=== PATIENT | female | born 1975 | race Caucasian/White ===

== ENCOUNTER 2018-06-25 08:48 | Emergency (ER) | payer SELFPAY ==
[~2018-06-25] VITALS: Ht 160 cm; Wt 59.0 kg
--- OUTSIDE RECORDS SUMMARY | 2018-06-25 08:54 | XMS REPORT ---
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 343441934 Problem Macrocytosis without anemia D75.89 Active 850914665 Problem Chronic kidney disease, stage III (moderate) N18.3 Active 167596650 Problem Controlled substance agreement signed Z79.899 Active 947125981 Problem Vitamin D deficiency E55.9 Active 92354897 Problem Neuropathy G62.9 Active 237946882 ALLERGIES Substance Reaction Event Type Date Status Zoloft manic Drug Allergy Dec, Active Vicodin nausea Drug Allergy Dec, Active ENCOUNTERS Encounter Location Date Diagnosis [facility] [address] [place] [address] Dec, Asymptomatic microscopic hematuria R31.21 ; Acquired hypothyroidism E03.9 ; Vitamin D deficiency E55.9 ; Macrocytosis without anemia D75.89 ; Chronic kidney disease, stage III (moderate) N18.3 and 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9 and Hypercholesteremia E78.00 [place] [address] [address] Aug, Anxiety F41.9 [place] [address] [address] June, Encounter for well woman exam with routine gynecological exam Z01.419 ; Screening mammogram, encounter for Z12.31 and Anxiety F41.9 [place] [address] [address] Apr, Anxiety F41.9 [place] [address] [address] Apr, [place] [address] [address] Apr, Acquired hypothyroidism E03.9 [place] [address] [address] Apr, Acquired hypothyroidism E03.9 ; Anxiety F41.9 ; Hypercholesteremia E78.00 and Kidney disease, chronic, stage III (GFR 30-59 ml/min) N18.3 [place] [address] [address] Mar, Controlled substance agreement signed Z79.899 [place] [address] [address] Feb, Chronic kidney disease, stage III (moderate) N18.3 [facility] [address], [place] [address] Feb, Acquired hypothyroidism E03.9 [place] [address] [place] [address] Feb, Rash of unknown cause R21 and Anxiety F41.9 [place] [address] [place] [id number] [place] [address] Jan, Rash of unknown cause R21 [place] [address] [place] [address] [id number] [place] [address] Dec, Rash of unknown cause R21 and Anxiety F41.9 [place] [address] [id number] [place] [address] Aug, Scabies B86 [place] [address] [id number] [place] [address] June, [facility] [id number] [place] [id number] Sep, Dental examination V72.2 IMMUNIZATIONS No Known Immunizations SOCIAL HISTORY Never Assessed REASON FOR VISIT New provider visit- TANISHA Contreras, Needs repeat UA from [employer], discuss meds a nd needs levothyroxine refilled. TANISHA Contreras PLAN OF CARE Activity Details Follow Up 3 months or as indicated by lab Reason: Pending Test UA LONG DIP (IN HOUSE) Future/Pending Procedure ROUTINE VENIPUNCTURE VITAL SIGNS Height 63 in 2018-01-06 Weight 139.8 lbs 2018-01-06 Temperature 97.9 degrees Fahrenheit 2018-01-06 Heart Rate 73 bpm 2018-01-06 Respiratory Rate 18 2018-01-06 BMI 24.76 kg/m2 2018-01-06 Blood pressure systolic 128 mmHg 2018-01-06 Blood pressure diastolic 70 mmHg 2018-01-06 MEDICATIONS Medication Instructions Dosage Frequency Start Date End Date Duration Status Escitalopram Oxalate 20 mg Orally Once a day 1 tablet 24h Apr, Active Vitamin D (Ergocalciferol) 83618 UNIT Orally once weekly 1 capsule Oct, Active Gabapentin 300 MG Orally Once a day 2 capsule at hs 24h 17 Oct, 2017 Active Levothyroxine Sodium 100 MCG Orally Once a day 1 capsule 24h Active Betamethasone Dipropionate 0.05 % Externally Once a day 1 application to affected area 24h Dec, 10 days Active RESULTS No Results PROCEDURES Procedure Date Ordered Result Body Site VENIPUNCT, ROUTINE* Jan 06, 2018 URINALYSIS, AUTO, W/O SCOPE Jan 06, 2018 URINALYSIS, AUTO W/SCOPE Jan 06, 2018 ASSAY THYROID STIM HORMONE Jan 06, 2018 COMPLETE CBC W/AUTO DIFF WBC Jan 06, 2018 ASSAY OF VITAMIN D Jan 06, 2018 COMPREHEN METABOLIC PANEL Jan 06, 2018 BLOOD FOLIC ACID SERUM Jan 06, 2018 PROTEIN E-PHORESIS/URINE/CSF Jan 06, 2018 ASSAY OF PROTEIN, URINE Jan 06, 2018 INSTRUCTIONS MEDICATIONS ADMINISTERED No Known Medications MEDICAL (GENERAL) HISTORY Type Description Date Medical History Hypothyroid Medical History Anxiety Medical History Neuropathy-DX by Sabi Sloan 10/22/17 Medical History kidney failure Surgical History Tubal Ligation Surgical History Gallbladder Removal Surgical History oral surgery Hospitalization History childbirth
--- OUTSIDE RECORDS SUMMARY | 2018-06-25 08:55 | XMS REPORT ---
Author Author ELLIE GARNICA Organization [facility] Address [address] [place] [address] Care Team Providers Care Manager Transition Name Role Phone ELLIE GARNICA Unavailable PROBLEMS Type Condition ICD9-CM Code ZUQ00-CI Code Onset Dates Condition Status SNOMED Code Problem Hypercholesteremia E78.00 Active 20075078 Problem Acquired hypothyroidism E03.9 Active 966532615 Problem Kidney disease, chronic, stage III (GFR 30-59 ml/min) N18.3 Active 339703536 Problem Vitamin D deficiency E55.9 Active 72833282 Problem Neuropathy G62.9 Active 929714416 Problem High risk medication use Z79.899 Active 949831483012539 Problem Anxiety F41.9 Active 01656321 Problem Chronic kidney disease, stage III (moderate) N18.3 Active 389313966 Problem Controlled substance agreement signed Z79.899 Active 605247344 ALLERGIES Substance Reaction Event Type Date Status Zoloft manic Drug Allergy Oct, Active Vicodin nausea Drug Allergy Oct, Active ENCOUNTERS Encounter Location Date Diagnosis [facility] [id number] [place] [address] Oct, Vitamin D deficiency E55.9 and Acquired hypothyroidism E03.9 [facility] [id number] [place] [address] Oct, Acquired hypothyroidism E03.9 ; Neuropathy G62.9 and Hypercholesteremia E78.00 [facility] [id number] [place] [address] Aug, Anxiety F41.9 [facility] [id number] [place] [address] June, Encounter for well woman exam with routine gynecological exam Z01.419 ; Screening mammogram, encounter for Z12.31 and Anxiety F41.9 [facility] [id number] [place] [address] Apr, Anxiety F41.9 [facility] [address] [address] Apr, [facility] [address] [address] Apr, Acquired hypothyroidism E03.9 [facility] [address] [address] Apr, Acquired hypothyroidism E03.9 ; Anxiety F41.9 ; Hypercholesteremia E78.00 and Kidney disease, chronic, stage III (GFR 30-59 ml/min) N18.3 [place] [address] [address] Mar, Controlled substance agreement signed Z79.899 [place] [address] [address] Feb, Chronic kidney disease, stage III (moderate) N18.3 [place] [address] [address] Feb, Acquired hypothyroidism E03.9 [place] [address] [address] Feb, Rash of unknown cause R21 and Anxiety F41.9 [place] [address] [address] Jan, Rash of unknown cause R21 [place] [address] [address] Dec, Rash of unknown cause R21 and Anxiety F41.9 [place] [address] [address] Aug, Scabies B86 [place] [address] [address] June, [facility] [id number] [place] [phone] Sep, Dental examination V72.2 IMMUNIZATIONS No Known Immunizations SOCIAL HISTORY Never Assessed REASON FOR VISIT Hospital f/u. Pt went to [facility] 10/22/17 for burning sensation in her l egs, they dx with neuropathic pain. Pt has a rx for Neurontin that she has not f illed because she wants to discuss with Ellie [facility]we[facility] PLAN OF CARE Activity Details Follow Up 3 Months, prn Reason:Thyroid/ w/[place] Pending Test VITAMIN B1 (THIAMINE) VITAL SIGNS Height 63 in 2017-10-25 Weight 137.1 lbs 2017-10-25 Temperature 98.6 degrees Fahrenheit 2017-10-25 Heart Rate 64 bpm 2017-10-25 Respiratory Rate 18 2017-10-25 BMI 24.28 kg/m2 2017-10-25 Blood pressure systolic 115 mmHg 2017-10-25 Blood pressure diastolic 64 mmHg 2017-10-25 MEDICATIONS Medication Instructions Dosage Frequency Start Date End Date Duration Status Gabapentin 300 MG Orally Once a day 1 capsule at hs - may increase to twice a day if needed 24h Oct, 90 days Active Escitalopram Oxalate 10 mg Orally Once a day 1 tablet 24h Apr, 30 day(s) Active Levothyroxine Sodium 75 mcg Orally Once a day 1 tablet on an empty stomach in the morning 24h 30 days Active RESULTS No Results PROCEDURES Procedure Date Ordered Result Body Site ASSAY THYROID STIM HORMONE Oct 25, 2017 COMPREHEN METABOLIC PANEL Oct 25, 2017 ASSAY OF VITAMIN D Oct 25, 2017 ASSAY OF VITAMIN B-1 Oct 25, 2017 VENIPUNCT, ROUTINE* Oct 25, 2017 LIPID PANEL Oct 25, 2017 COMPLETE CBC W/AUTO DIFF WBC Oct 25, 2017 VITAMIN B-12 Oct 25, 2017 RBC SED RATE, AUTOMATED Oct 25, 2017 INSTRUCTIONS MEDICATIONS ADMINISTERED No Known Medications MEDICAL (GENERAL) HISTORY Type Description Date Medical History Hypothyroid Medical History Anxiety Medical History Neuropathy-DX by Patria Sloan 10/22/17 Surgical History Tubal Ligation Surgical History Gallbladder Removal
--- OUTSIDE RECORDS SUMMARY | 2018-06-25 08:55 | XMS REPORT ---
Author Author ELMIRA MARTIN [facility] Address [address] [place] [address] Care Team Providers Care Right Of Way Clearer Name Role Phone ELMIRA MARTIN Unavailable PROBLEMS Type Condition ICD9-CM Code NTH93-WC Code Onset Dates Condition Status SNOMED Code Problem Hypercholesteremia E78.00 Active 60941242 Problem Acquired hypothyroidism E03.9 Active 718711460 Problem Kidney disease, chronic, stage III (GFR 30-59 ml/min) N18.3 Active 185912610 Problem Vitamin D deficiency E55.9 Active 15090897 Problem Neuropathy G62.9 Active 794224637 Problem High risk medication use Z79.899 Active 192264407927340 Problem Anxiety F41.9 Active 31989741 Problem Chronic kidney disease, stage III (moderate) N18.3 Active 871120161 Problem Controlled substance agreement signed Z79.899 Active 302078643 ALLERGIES No Information ENCOUNTERS Encounter Location Date Diagnosis [facility] [id number] [place] [address] Dec, [facility] [id number] [place] [address] Dec, [facility] [id number] [place] [address] Dec, [facility] [id number] [place] [address] Nov, Chronic kidney disease, stage III (moderate) N18.3 [facility] [id number] [place] [address] Oct, Vitamin D deficiency E55.9 and Acquired hypothyroidism E03.9 [facility] [address] [address] Oct, Acquired hypothyroidism E03.9 ; Neuropathy G62.9 and Hypercholesteremia E78.00 [place] [address] [address] Aug, Anxiety F41.9 [place] [address] [address] June, Encounter for well woman exam with routine gynecological exam Z01.419 ; Screening mammogram, encounter for Z12.31 and Anxiety F41.9 [place] [address] [address] Apr, Anxiety F41.9 [place] [address] [address] Apr, [place] [address] [address] Apr, Acquired hypothyroidism E03.9 [place] [address] [address] Apr, Acquired hypothyroidism E03.9 ; Anxiety F41.9 ; Hypercholesteremia E78.00 and Kidney disease, chronic, stage III (GFR 30-59 ml/min) N18.3 [place] [address] [address] Mar, Controlled substance agreement signed Z79.899 [place] [address] [address] Feb, Chronic kidney disease, stage III (moderate) N18.3 [place] [id number] [place] [address] Feb, Acquired hypothyroidism E03.9 [place] [address] [address] Feb, Rash of unknown cause R21 and Anxiety F41.9 [place] [address] [address] Jan, Rash of unknown cause R21 [facility] [id number] [address] Dec, Rash of unknown cause R21 and Anxiety F41.9 [facility] [id number] [address] Aug, Scabies B86 [facility] [address] [address] June, [facility] [place] [facility] [address] [facility] [id number] [id number] Sep, Dental examination V72.2 IMMUNIZATIONS No Known Immunizations SOCIAL HISTORY Never Assessed REASON FOR VISIT [facility] PLAN OF CARE VITAL SIGNS MEDICATIONS Unknown Medications RESULTS No Results PROCEDURES No Known procedures INSTRUCTIONS MEDICATIONS ADMINISTERED No Known Medications MEDICAL (GENERAL) HISTORY Type Description Date Medical History Hypothyroid Medical History Anxiety Medical History Neuropathy-DX by Sabi Sloan 10/22/17 Surgical History Tubal Ligation Surgical History Gallbladder Removal
--- OUTSIDE RECORDS SUMMARY | 2018-06-25 08:55 | XMS REPORT ---
Author Author ELLIE GARNICA Organization [facility] Address [address] [place] [address] Care Team Providers Care Filleter Name Role Phone GARNICAELLIE Wayne Unavailable PROBLEMS Type Condition ICD9-CM Code JLW84-NB Code Onset Dates Condition Status SNOMED Code Problem Hypercholesteremia E78.00 Active 29175298 Problem Chronic kidney disease, stage III (moderate) N18.3 Active 181783417 Problem Controlled substance agreement signed Z79.899 Active 623457804 Problem Acquired hypothyroidism E03.9 Active 124721350 Problem Kidney disease, chronic, stage III (GFR 30-59 ml/min) N18.3 Active 173390261 Problem High risk medication use Z79.899 Active 739447676898979 Problem Anxiety F41.9 Active 70029429 ALLERGIES No Information ENCOUNTERS Encounter Location Date Diagnosis [facility] [id number] [place] [address] June, Encounter for well woman exam with routine gynecological exam Z01.419 ; Screening mammogram, encounter for Z12.31 and Anxiety F41.9 [place] [address] [place] [address] Apr, Anxiety F41.9 [place] [id number] [place] [address] Apr, [place] [address] [place] [address] Apr, Acquired hypothyroidism E03.9 [facility] [id number] [place] [address] Apr, Acquired hypothyroidism E03.9 ; Anxiety F41.9 ; Hypercholesteremia E78.00 and Kidney disease, chronic, stage III (GFR 30-59 ml/min) N18.3 [place] [address] [place] [address] Mar, Controlled substance agreement signed Z79.899 [place] [id number] [place] [address] Feb, Chronic kidney disease, stage III (moderate) N18.3 [place] [address] [address] Feb, Acquired hypothyroidism E03.9 [place] [id number] [place] [address] Feb, Rash of unknown cause R21 and Anxiety F41.9 [place] [id number] [place] [address] Jan, Rash of unknown cause R21 [place] [address] [address] Dec, Rash of unknown cause R21 and Anxiety F41.9 [place] [id number] [place] [address] Aug, Scabies B86 [place] [id number] [place] [address] June, [facility] [address] [id number] Sep, Dental examination V72.2 IMMUNIZATIONS No Known Immunizations SOCIAL HISTORY Never Assessed REASON FOR VISIT Medication refill request PLAN OF CARE VITAL SIGNS MEDICATIONS Medication Instructions Dosage Frequency Start Date End Date Duration Status Levothyroxine Sodium 75 mcg Orally Once a day 1 tablet on an empty stomach in the morning 24h 30 days Active RESULTS No Results PROCEDURES No Known procedures INSTRUCTIONS MEDICATIONS ADMINISTERED No Known Medications MEDICAL (GENERAL) HISTORY Type Description Date Medical History Hypothyroid Medical History Anxiety Surgical History Tubal Ligation Surgical History Gallbladder Removal
--- OUTSIDE RECORDS SUMMARY | 2018-06-25 08:55 | XMS REPORT ---
Author Author JULIA PENA [facility] Address [address] [place] [address] Care Team Providers Care Drapery Counselor Name Role Phone KING JULIA Unavailable PROBLEMS Type Condition ICD9-CM Code NOO42-EB Code Onset Dates Condition Status SNOMED Code Problem Hypercholesteremia E78.00 Active 60477897 Problem Chronic kidney disease, stage III (moderate) N18.3 Active 447089106 Problem Controlled substance agreement signed Z79.899 Active 059560637 Problem Acquired hypothyroidism E03.9 Active 778519642 Problem Kidney disease, chronic, stage III (GFR 30-59 ml/min) N18.3 Active 141691811 Problem High risk medication use Z79.899 Active 060282365713056 Problem Anxiety F41.9 Active 93943262 ALLERGIES Substance Reaction Event Type Date Status Zoloft manic Drug Allergy June, Active Vicodin nausea Drug Allergy June, Active ENCOUNTERS Encounter Location Date Diagnosis [place] [address] [place] [id number] [place] [address] Sep, [place] [id number] [place] [address] Aug, Anxiety F41.9 [facility] [id number] [place] [address] June, Encounter for well woman exam with routine gynecological exam Z01.419 ; Screening mammogram, encounter for Z12.31 and Anxiety F41.9 [facility] [id number] [place] [address] Apr, Anxiety F41.9 [facility] [id number] [place] [address] Apr, [facility] [id number] [place] [address] Apr, Acquired hypothyroidism E03.9 [place] [id number] [place] [address] Apr, Acquired hypothyroidism E03.9 ; Anxiety F41.9 ; Hypercholesteremia E78.00 and Kidney disease, chronic, stage III (GFR 30-59 ml/min) N18.3 [place] [address] [address] Mar, Controlled substance agreement signed Z79.899 [place] [address] [address] Feb, Chronic kidney disease, stage III (moderate) N18.3 [place] [address] [address] Feb, Acquired hypothyroidism E03.9 [place] [id number] [place] [address] Feb, Rash of unknown cause R21 and Anxiety F41.9 [place] [id number] [place] [address] Jan, Rash of unknown cause R21 [place] [address] [address] Dec, Rash of unknown cause R21 and Anxiety F41.9 [place] [address] [place] [id number] [place] [address] Aug, Scabies B86 [place] [address] [place] [id number] [place] [address] June, [facility] [address] [id number] Sep, Dental examination V72.2 IMMUNIZATIONS No Known Immunizations SOCIAL HISTORY Never Assessed REASON FOR VISIT Annual physical (female)-DELFIN Duque PLAN OF CARE Activity Details Follow Up 4 Weeks Reason:with pcp-anxiety Pending Test Mammogram, Bilateral Screening VITAL SIGNS Height 63 in 2017-06-25 Weight 133.6 lbs 2017-06-25 Temperature 98 degrees Fahrenheit 2017-06-25 Heart Rate 70 bpm 2017-06-25 Respiratory Rate 18 2017-06-25 BMI 23.66 kg/m2 2017-06-25 Blood pressure systolic 100 mmHg 2017-06-25 Blood pressure diastolic 60 mmHg 2017-06-25 MEDICATIONS Medication Instructions Dosage Frequency Start Date End Date Duration Status Levothyroxine Sodium 75 mcg Orally Once a day 1 tablet on an empty stomach in the morning 24h 30 days Active Escitalopram Oxalate 10 mg Orally Once a day 1 tablet 24h Apr, 30 day(s) Active RESULTS No Results PROCEDURES Procedure Date Ordered Result Body Site SPECIMEN HANDLING June 25, 2017 INSTRUCTIONS MEDICATIONS ADMINISTERED No Known Medications MEDICAL (GENERAL) HISTORY Type Description Date Medical History Hypothyroid Medical History Anxiety Surgical History Tubal Ligation Surgical History Gallbladder Removal
--- OUTSIDE RECORDS SUMMARY | 2018-06-25 08:55 | XMS REPORT ---
Author Author LUIS KAMINSKI [facility] Address [address] [place] [address] Care Team Providers Care Formulation Scientist Name Role Phone LUIS KAMINSKI Unavailable PROBLEMS Type Condition ICD9-CM Code TWO06-PA Code Onset Dates Condition Status SNOMED Code Problem Hypercholesteremia E78.00 Active 60969215 Problem Acquired hypothyroidism E03.9 Active 246626909 Problem Kidney disease, chronic, stage III (GFR 30-59 ml/min) N18.3 Active 068552983 Problem Vitamin D deficiency E55.9 Active 25749449 Problem Neuropathy G62.9 Active 375384990 Problem High risk medication use Z79.899 Active [id number] Problem Anxiety F41.9 Active 79956035 Problem Chronic kidney disease, stage III (moderate) N18.3 Active 995671828 Problem Controlled substance agreement signed Z79.899 Active 978530547 ALLERGIES No Information ENCOUNTERS Encounter Location Date Diagnosis [facility] [id number] [place] [address] Dec, [facility] [id number] [place] [address] Dec, [facility] [id number] [place] [address] Nov, Chronic kidney disease, stage III (moderate) N18.3 [facility] [id number] [place] [address] Oct, Vitamin D deficiency E55.9 and Acquired hypothyroidism E03.9 [facility] [id number] [place] [address] 17 Oct, 2017 Acquired hypothyroidism E03.9 ; Neuropathy G62.9 and Hypercholesteremia E78.00 [facility] [id number] [place] [address] Aug, Anxiety F41.9 [place] [address] [address] June, Encounter for well woman exam with routine gynecological exam Z01.419 ; Screening mammogram, encounter for Z12.31 and Anxiety F41.9 [place] [address] [address] Apr, Anxiety F41.9 [place] [address] [address] Apr, [place] [address] [address] Apr, Acquired hypothyroidism E03.9 [place] [address] [address] Apr, Acquired hypothyroidism E03.9 ; Anxiety F41.9 ; Hypercholesteremia E78.00 and Kidney disease, chronic, stage III (GFR 30-59 ml/min) N18.3 [place] [address] [address] Mar, Controlled substance agreement signed Z79.899 [place] [address] [address] Feb, Chronic kidney disease, stage III (moderate) N18.3 [place] [id number] [place] [address] Feb, Acquired hypothyroidism E03.9 [place] [address] [address] Feb, Rash of unknown cause R21 and Anxiety F41.9 [place] [id number] [place] [address] Jan, Rash of unknown cause R21 [place] [address] [address] Dec, Rash of unknown cause R21 and Anxiety F41.9 [facility] [address] [facility] [id number] [address] Aug, Scabies B86 [facility] [address] [facility] [id number] [address] June, [facility] [address] [facility] [id number] [id number] Sep, Dental examination V72.2 IMMUNIZATIONS No Known Immunizations SOCIAL HISTORY Never Assessed REASON FOR VISIT need fax number PLAN OF CARE VITAL SIGNS MEDICATIONS Unknown Medications RESULTS No Results PROCEDURES No Known procedures INSTRUCTIONS MEDICATIONS ADMINISTERED No Known Medications MEDICAL (GENERAL) HISTORY Type Description Date Medical History Hypothyroid Medical History Anxiety Medical History Neuropathy-DX by Sabi Sloan 10/22/17 Surgical History Tubal Ligation Surgical History Gallbladder Removal
--- OUTSIDE RECORDS SUMMARY | 2018-06-25 08:55 | XMS REPORT ---
Author Author JAYLIN HOBBS [facility] Address [address] [place] [address] Care Team Providers Care Guest Services Representative Name Role Phone JAYLIN HOBBS Unavailable PROBLEMS Type Condition ICD9-CM Code QJH80-HB Code Onset Dates Condition Status SNOMED Code Problem Hypercholesteremia E78.00 Active 71188951 Problem Acquired hypothyroidism E03.9 Active 143883346 Problem Kidney disease, chronic, stage III (GFR 30-59 ml/min) N18.3 Active 009690076 Problem Vitamin D deficiency E55.9 Active 94343077 Problem Neuropathy G62.9 Active 296206706 Problem High risk medication use Z79.899 Active 874333089939071 Problem Anxiety F41.9 Active 59288079 Problem Chronic kidney disease, stage III (moderate) N18.3 Active 383890296 Problem Controlled substance agreement signed Z79.899 Active 543450416 ALLERGIES No Information ENCOUNTERS Encounter Location Date Diagnosis [place] [address] [address] Nov, Chronic kidney disease, stage III (moderate) N18.3 [place] [id number] [place] [address] Oct, Vitamin D deficiency E55.9 and Acquired hypothyroidism E03.9 [place] [id number] [place] [address] Oct, Acquired hypothyroidism E03.9 ; Neuropathy G62.9 and Hypercholesteremia E78.00 [place] [id number] [place] [address] Aug, Anxiety F41.9 [place] [id number] [place] [address] June, Encounter for well woman exam with routine gynecological exam Z01.419 ; Screening mammogram, encounter for Z12.31 and Anxiety F41.9 [place] [id number] [place] [address] Apr, Anxiety F41.9 [facility] [id number] [place] [address] Apr, [facility] [address] [address] Apr, Acquired hypothyroidism E03.9 [place] [address] [address] Apr, Acquired hypothyroidism E03.9 ; Anxiety F41.9 ; Hypercholesteremia E78.00 and Kidney disease, chronic, stage III (GFR 30-59 ml/min) N18.3 [place] [id number] [place] [address] Mar, Controlled substance agreement signed Z79.899 [place] [address] [address] Feb, Chronic kidney disease, stage III (moderate) N18.3 [place] [id number] [place] [address] Feb, Acquired hypothyroidism E03.9 [place] [id number] [place] [address] Feb, Rash of unknown cause R21 and Anxiety F41.9 [place] [id number] [place] [address] Jan, Rash of unknown cause R21 [place] [address] [address] Dec, Rash of unknown cause R21 and Anxiety F41.9 [place] [id number] [place] [address] Aug, Scabies B86 [place] [id number] [place] [address] June, [facility] [address] [facility] [id number] [place] [id number] Sep, Dental examination V72.2 IMMUNIZATIONS No Known Immunizations SOCIAL HISTORY Never Assessed REASON FOR VISIT PLAN OF CARE VITAL SIGNS MEDICATIONS Unknown Medications RESULTS No Results PROCEDURES No Known procedures INSTRUCTIONS MEDICATIONS ADMINISTERED No Known Medications MEDICAL (GENERAL) HISTORY Type Description Date Medical History Hypothyroid Medical History Anxiety Medical History Neuropathy-DX by Sabi Sloan 10/22/17 Surgical History Tubal Ligation Surgical History Gallbladder Removal
--- OUTSIDE RECORDS SUMMARY | 2018-06-25 08:55 | XMS REPORT ---
Author Author GARNICAELLIE Wayne [facility] Address [address] [place] [address] Care Team Providers Care Lead Caster Helper Name Role Phone ELLIE GARNICA Unavailable PROBLEMS Type Condition ICD9-CM Code FLB89-XD Code Onset Dates Condition Status SNOMED Code Problem Hypercholesteremia E78.00 Active 18879189 Problem Chronic kidney disease, stage III (moderate) N18.3 Active 284403475 Problem Controlled substance agreement signed Z79.899 Active 623254484 Problem Acquired hypothyroidism E03.9 Active 293381202 Problem Kidney disease, chronic, stage III (GFR 30-59 ml/min) N18.3 Active 291957625 Problem High risk medication use Z79.899 Active 084937618397798 Problem Anxiety F41.9 Active 77251169 ALLERGIES No Information ENCOUNTERS Encounter Location Date Diagnosis [place] [address] [place] [address] Aug, Anxiety F41.9 [place] [id number] [place] [address] June, Encounter for well woman exam with routine gynecological exam Z01.419 ; Screening mammogram, encounter for Z12.31 and Anxiety F41.9 [facility] [address] [place] [address] Apr, Anxiety F41.9 [place] [address] [place] [address] Apr, [place] [id number] [place] [address] Apr, Acquired hypothyroidism E03.9 [place] [address] [place] [address] Apr, Acquired hypothyroidism E03.9 ; Anxiety F41.9 ; Hypercholesteremia E78.00 and Kidney disease, chronic, stage III (GFR 30-59 ml/min) N18.3 [place] [id number] [place] [address] Mar, Controlled substance agreement signed Z79.899 [place] [id number] [place] [address] Feb, Chronic kidney disease, stage III (moderate) N18.3 [place] [id number] [place] [address] Feb, Acquired hypothyroidism E03.9 [place] [id number] [place] [address] Feb, Rash of unknown cause R21 and Anxiety F41.9 [place] [id number] [place] [address] Jan, Rash of unknown cause R21 [place] [address] [address] Dec, Rash of unknown cause R21 and Anxiety F41.9 [place] [id number] [place] [address] Aug, Scabies B86 [place] [id number] [place] [address] June, [facility] [id number] [place] [id number] Sep, Dental examination V72.2 IMMUNIZATIONS No Known Immunizations SOCIAL HISTORY Never Assessed REASON FOR VISIT Refill request PLAN OF CARE VITAL SIGNS MEDICATIONS Medication Instructions Dosage Frequency Start Date End Date Duration Status Escitalopram Oxalate 10 mg Orally Once a day 1 tablet 24h Apr, 30 day(s) Active RESULTS No Results PROCEDURES No Known procedures INSTRUCTIONS MEDICATIONS ADMINISTERED No Known Medications MEDICAL (GENERAL) HISTORY Type Description Date Medical History Hypothyroid Medical History Anxiety Surgical History Tubal Ligation Surgical History Gallbladder Removal
--- OUTSIDE RECORDS SUMMARY | 2018-06-25 08:55 | XMS REPORT ---
Author Author ELLIE GARNICA [facility] Address [address] [place] [address] Care Team Providers Care Community Associate Name Role Phone GARNICAELLIE Wayne Unavailable PROBLEMS Type Condition ICD9-CM Code INR08-WJ Code Onset Dates Condition Status SNOMED Code Problem Hypercholesteremia E78.00 Active 41470298 Problem Chronic kidney disease, stage III (moderate) N18.3 Active 516420274 Problem Controlled substance agreement signed Z79.899 Active 845330840 Problem Acquired hypothyroidism E03.9 Active 201677984 Problem Kidney disease, chronic, stage III (GFR 30-59 ml/min) N18.3 Active 399407758 Problem High risk medication use Z79.899 Active 880813099020689 Problem Anxiety F41.9 Active 10544828 ALLERGIES No Information ENCOUNTERS Encounter Location Date Diagnosis [place] [address] [address] Sep, [place] [address] [id number] [place] [address] Aug, Anxiety F41.9 [place] [address] [place] [address] June, Encounter for well woman exam with routine gynecological exam Z01.419 ; Screening mammogram, encounter for Z12.31 and Anxiety F41.9 [place] [address] [place] [id number] [address] Apr, Anxiety F41.9 [place] [id number] [place] [address] Apr, [place] [address] [place] [id number] [address] Apr, Acquired hypothyroidism E03.9 [place] [id number] [place] [address] Apr, Acquired hypothyroidism E03.9 ; Anxiety F41.9 ; Hypercholesteremia E78.00 and Kidney disease, chronic, stage III (GFR 30-59 ml/min) N18.3 [place] [address] [address] Mar, Controlled substance agreement signed Z79.899 [place] [address] [address] Feb, Chronic kidney disease, stage III (moderate) N18.3 [place] [address] [address] Feb, Acquired hypothyroidism E03.9 [place] [address] [address] Feb, Rash of unknown cause R21 and Anxiety F41.9 [place] [id number] [place] [address] Jan, Rash of unknown cause R21 [address] [address] Dec, Rash of unknown cause R21 and Anxiety F41.9 [place] [address] [address] Aug, Scabies B86 [place] [id number] [place] [address] June, [facility] [address] [id number] Sep, Dental examination V72.2 IMMUNIZATIONS No Known Immunizations SOCIAL HISTORY Never Assessed REASON FOR VISIT med request PLAN OF CARE VITAL SIGNS MEDICATIONS [...]
--- OUTSIDE RECORDS SUMMARY | 2018-06-25 08:55 | XMS REPORT ---
Author Author ELLIE GARNICA Organization [facility] Address [address] [place] [address] Care Team Providers Care Oyster Buyer Name Role Phone GARNICAELLIE Wayne Unavailable PROBLEMS Type Condition ICD9-CM Code XJW35-XR Code Onset Dates Condition Status SNOMED Code Problem Hypercholesteremia E78.00 Active 60373482 Problem Chronic kidney disease, stage III (moderate) N18.3 Active 708846594 Problem Controlled substance agreement signed Z79.899 Active 410006550 Problem Acquired hypothyroidism E03.9 Active 876972032 Problem Kidney disease, chronic, stage III (GFR 30-59 ml/min) N18.3 Active 408689124 Problem High risk medication use Z79.899 Active 348220621059487 Problem Anxiety F41.9 Active 07568426 ALLERGIES No Information ENCOUNTERS Encounter Location Date Diagnosis [facility] [id number] [place] [address] June, Encounter for well woman exam with routine gynecological exam Z01.419 ; Screening mammogram, encounter for Z12.31 and Anxiety F41.9 [place] [address] [place] [address] Apr, Anxiety F41.9 [place] [id number] [place] [address] Apr, [place] [address] [place] [address] Apr, Acquired hypothyroidism E03.9 [facility] [id number] [place] [address] Apr, Acquired hypothyroidism E03.9 ; Anxiety F41.9 ; Hypercholesteremia E78.00 and Kidney disease, chronic, stage III (GFR 30-59 ml/min) N18.3 [place] [id number] [place] [address] Mar, Controlled substance agreement signed Z79.899 [place] [address] [address] Feb, Chronic kidney disease, stage III (moderate) N18.3 [place] [address] [address] Feb, Acquired hypothyroidism E03.9 [place] [address] [address] Feb, Rash of unknown cause R21 and Anxiety F41.9 [place] [id number] [place] [address] Jan, Rash of unknown cause R21 [place] [address] [address] Dec, Rash of unknown cause R21 and Anxiety F41.9 [place] [id number] [place] [address] Aug, Scabies B86 [place] [address] [address] June, [facility] [address] [id number] Sep, Dental examination V72.2 IMMUNIZATIONS No Known Immunizations SOCIAL HISTORY Never Assessed REASON FOR VISIT Requests return call PLAN OF CARE VITAL SIGNS MEDICATIONS No Known Medications RESULTS No Results PROCEDURES No Known procedures INSTRUCTIONS MEDICATIONS ADMINISTERED No Known Medications MEDICAL (GENERAL) HISTORY Type Description Date Medical History Hypothyroid Medical History Anxiety Surgical History Tubal Ligation Surgical History Gallbladder Removal
--- OUTSIDE RECORDS SUMMARY | 2018-06-25 08:55 | XMS REPORT ---
Author Author ELLIE Chand [facility] Address [address] [place] [address] Care Team Providers Care Switch House Operator Name Role Phone ELLIE Chand Unavailable PROBLEMS ALLERGIES No Information ENCOUNTERS IMMUNIZATIONS No Known Immunizations SOCIAL HISTORY No smoking Hx information available REASON FOR VISIT PLAN OF CARE VITAL SIGNS MEDICATIONS RESULTS No Results PROCEDURES No Known procedures INSTRUCTIONS MEDICATIONS ADMINISTERED No Known Medications MEDICAL (GENERAL) HISTORY
--- OUTSIDE RECORDS SUMMARY | 2018-06-25 08:56 | XMS REPORT | Continuity of Care Document ---
Author Organization Unknown Address Unknown Allergies There is no data. Medications There is no data. Problems There is no data. Procedures There is no data. Results Test Result Range TISSUE, 2 SPECIMENS - 12/29/16 10:59 A SOURCE NRG A GROSS DESCRIPTION NRG A DIAGNOSIS NRG A COMMENT NRG TSH - 04/15/17 14:45 TSH 89.97 mIU/L NRG SUREPATH PAP AND HPV mRNA E6/E7 - 06/25/17 13:36 CLINICAL INFORMATION: NRG LMP: 06/08/17 NRG PREV. PAP: 1993 NRG PREV. BX: NEGATIVE NRG SOURCE: Cervix NRG STATEMENT OF ADEQUACY: NRG INTERPRETATION/RESULT: NRG SIPHONER: NRG HPV mRNA E6/E7, SUREPATH VIAL Not Detected NOT DETECTED COMMENT NRG TSH - 10/25/17 19:33 TSH >150.00 mIU/L NRG VITAMIN D, 25-H - 10/25/17 19:33 VITAMIN D,25-OH,TOTAL,IA 8 ng/mL 30-100 VITAMIN B12 - 10/25/17 19:33 VITAMIN B12 542 pg/mL 200-1100 VITAMIN B1 (THIAMINE), SERUM/PLASMA, LC/MS/MS - 10/25/17 19:33 VITAMIN B1 (THIAMINE), SERUM/PLASMA, LC/MS/MS 37 nmol/L 8- 30 CMP - 01/06/18 16:02 GLUCOSE 96 mg/dL 65-99 UREA NITROGEN (BUN) 14 mg/dL 7-25 CREATININE 1.22 mg/dL 0.50-1.10 eGFR NON-AFR. BOLIVIAN 54 mL/min/1.73m2 > OR=60 eGFR 62 mL/min/1.73m2 > OR=60 BUN/CREATININE RATIO 11 (calc) 6-22 SODIUM 137 mmol/L 135-146 POTASSIUM 4.1 mmol/L 3.5-5.3 CHLORIDE 102 mmol/L 98-110 CARBON DIOXIDE 28 mmol/L 20-32 CALCIUM 10.0 mg/dL 8.6-10.2 PROTEIN, TOTAL 7.4 g/dL 6.1-8.1 ALBUMIN 4.5 g/dL 3.6-5.1 GLOBULIN 2.9 g/dL (calc) 1.9-3.7 ALBUMIN/GLOBULIN RATIO 1.6 (calc) 1.0-2.5 BILIRUBIN, TOTAL 0.4 mg/dL 0.2-1.2 ALKALINE PHOSPHATASE 66 U/L 33-115 AST 24 U/L 10-30 ALT 11 U/L 6-29 UA W/ MICROSCOPY - 01/06/18 16:02 COLOR YELLOW YELLOW APPEARANCE CLEAR CLEAR SPECIFIC GRAVITY 1.018 1.001-1.035 PH 6.5 5.0-8.0 GLUCOSE NEGATIVE NEGATIVE BILIRUBIN NEGATIVE NEGATIVE KETONES NEGATIVE NEGATIVE OCCULT BLOOD 1+ NEGATIVE PROTEIN NEGATIVE NEGATIVE NITRITE NEGATIVE NEGATIVE LEUKOCYTE ESTERASE NEGATIVE NEGATIVE WBC 0-5 /HPF < OR=5 RBC 3-10 /HPF < OR=2 SQUAMOUS EPITHELIAL CELLS 10-20 /HPF < OR=5 BACTERIA FEW /HPF NONE SEEN HYALINE CAST NONE SEEN /LPF NONE SEEN COMMENTS FEW MUCOUS THREADS NRG FOLATE (FOLIC ACID) - 01/06/18 16:10 FOLATE, SERUM 10.3 ng/mL NRG Encounters ACCT No. Visit Date/Time Discharge Status Pt. Type Provider Facility Loc./Unit Complaint [id number] 06/22/2018 11:00:00 [facility] [id number] 01/06/2018 14:20:00 Document Registration [id number] 10/25/2017 18:40:00 Document Registration [id number] 06/25/2017 13:00:00 Document Registration [id number] 04/15/2017 14:00:00 Document Registration [id number] 12/29/2016 08:00:00 Document Registration
--- OUTSIDE RECORDS SUMMARY | 2018-06-25 08:56 | XMS REPORT ---
Author Author ELLIE GARNICA Organization [facility] Address [address] [place] [address] Care Team Providers Care Fuel Storage Technician Name Role Phone GARNICAELLIE Wayne Unavailable PROBLEMS Type Condition ICD9-CM Code TSW28-CS Code Onset Dates Condition Status SNOMED Code Problem Hypercholesteremia E78.00 Active 91017050 Problem Chronic kidney disease, stage III (moderate) N18.3 Active 913494952 Problem Controlled substance agreement signed Z79.899 Active 674364645 Problem Acquired hypothyroidism E03.9 Active 919687786 Problem Kidney disease, chronic, stage III (GFR 30-59 ml/min) N18.3 Active 123335097 Problem High risk medication use Z79.899 Active 207138332787227 Problem Anxiety F41.9 Active 18582268 ALLERGIES No Known Allergies ENCOUNTERS Encounter Location Date Diagnosis [place] [id number] [place] [phone] May, [place] [id number] [place] [phone] Apr, Anxiety F41.9 [place] [phone] [place] [address] Apr, [facility] [id number] [place] [address] Apr, Acquired hypothyroidism E03.9 [place] [address] [address] Apr, Acquired hypothyroidism E03.9 ; Anxiety F41.9 ; Hypercholesteremia E78.00 and Kidney disease, chronic, stage III (GFR 30-59 ml/min) N18.3 [place] [address] [address] Mar, Controlled substance agreement signed Z79.899 [facility] [address] [address] Feb, Chronic kidney disease, stage III (moderate) N18.3 [place] [phone] [place] [address] Feb, Acquired hypothyroidism E03.9 [place] [phone] [place] [address] Feb, Rash of unknown cause R21 and Anxiety F41.9 [place] [id number] [place] [address] Jan, Rash of unknown cause R21 [place] [phone] [place] [address] Dec, Rash of unknown cause R21 and Anxiety F41.9 [place] [phone] [place] [address] Aug, Scabies B86 [place] [address] [place] [address] June, [facility] [address] [place] [phone] Sep, Dental examination V72.2 IMMUNIZATIONS No Known Immunizations SOCIAL HISTORY Never Assessed REASON FOR VISIT Rash all over body, first noticed in june after losing job, has gradually spread all over body, states she has been seen in the hospital and was informed it was scabies. Reports holding her grandkids and they do not have it, pt does not bel ieve it is scabies-AHarrymanRN PLAN OF CARE Activity Details Follow Up prn Reason: VITAL SIGNS Height 63 in 2016-08-24 Weight 130.1 lbs 2016-08-24 Temperature 97.8 degrees Fahrenheit 2016-08-24 Heart Rate 86 bpm 2016-08-24 Respiratory Rate 20 2016-08-24 BMI 23.04 kg/m2 2016-08-24 Blood pressure systolic 114 mmHg 2016-08-24 Blood pressure diastolic 78 mmHg 2016-08-24 MEDICATIONS Medication Instructions Dosage Frequency Start Date End Date Duration Status Levothyroxine Sodium 137 MCG Orally Once a day 1 tablet on an empty stomach in the morning 24h Active HydrOXYzine HCl 25 MG Orally every 8 hrs 1 tablet as needed 8h Aug, 10 days Active Permethrin 5 % Externally Once a day apply to body from the neck down- leave on 8-10 hours then wash off in the am. 24h Aug, Aug, 1 dose Active Xanax 0.5 MG Orally Once a day 1 tablet 24h Active RESULTS No Results PROCEDURES No Known procedures INSTRUCTIONS MEDICATIONS ADMINISTERED No Known Medications MEDICAL (GENERAL) HISTORY Type Description Date Medical History Hypothyroid Medical History Anxiety Surgical History Tubal Ligation Surgical History Gallbladder Removal
--- OUTSIDE RECORDS SUMMARY | 2018-06-25 08:56 | XMS REPORT ---
Author Author ELLIE GARNICA Organization [facility] Address [address] [place] [address] Care Team Providers Care Edi Analyst Name Role Phone GARNICAELLIE Wayne Unavailable PROBLEMS Type Condition ICD9-CM Code NAM32-EJ Code Onset Dates Condition Status SNOMED Code Problem Hypercholesteremia E78.00 Active 06733162 Problem Chronic kidney disease, stage III (moderate) N18.3 Active 137495823 Problem Controlled substance agreement signed Z79.899 Active 180707712 Problem Acquired hypothyroidism E03.9 Active 286125249 Problem Kidney disease, chronic, stage III (GFR 30-59 ml/min) N18.3 Active 867969225 Problem High risk medication use Z79.899 Active 333092936617935 Problem Anxiety F41.9 Active 31736981 ALLERGIES No Information ENCOUNTERS Encounter Location Date Diagnosis [facility] [id number] [place] [address] June, Encounter for well woman exam with routine gynecological exam Z01.419 ; Screening mammogram, encounter for Z12.31 and Anxiety F41.9 [place] [address] [place] [address] Apr, Anxiety F41.9 [place] [address] [id number] [place] [address] Apr, [place] [address] [place] [address] Apr, Acquired hypothyroidism E03.9 [facility] [id number] [place] [address] Apr, Acquired hypothyroidism E03.9 ; Anxiety F41.9 ; Hypercholesteremia E78.00 and Kidney disease, chronic, stage III (GFR 30-59 ml/min) N18.3 [place] [address] [place] [address] Mar, Controlled substance agreement signed Z79.899 [place] [id number] [place] [address] Feb, Chronic kidney disease, stage III (moderate) N18.3 [place] [address] [address] Feb, Acquired hypothyroidism E03.9 [place] [address] [id number] [place] [address] Feb, Rash of unknown cause R21 and Anxiety F41.9 [place] [id number] [place] [address] Jan, Rash of unknown cause R21 [place] [address] [address] Dec, Rash of unknown cause R21 and Anxiety F41.9 [place] [id number] [place] [address] Aug, Scabies B86 [place] [address] [id number] [place] [address] June, [facility] [address] [id number] Sep, Dental examination V72.2 IMMUNIZATIONS No Known Immunizations SOCIAL HISTORY Never Assessed REASON FOR VISIT PLAN OF CARE VITAL SIGNS MEDICATIONS Medication Instructions Dosage Frequency Start Date End Date Duration Status Levothyroxine Sodium 50 MCG Orally Once a day 1 tablet on an empty stomach in the morning 24h 30 days Active RESULTS No Results PROCEDURES No Known procedures INSTRUCTIONS MEDICATIONS ADMINISTERED No Known Medications MEDICAL (GENERAL) HISTORY Type Description Date Medical History Hypothyroid Medical History Anxiety Surgical History Tubal Ligation Surgical History Gallbladder Removal
--- OUTSIDE RECORDS SUMMARY | 2018-06-25 08:56 | XMS REPORT ---
Author Author ELLIE GARNICA Organization [facility] Address [address] [place] [address] Care Team Providers Care Sales Service Route Manager Name Role Phone GARNICAELLIE Wayne Unavailable PROBLEMS Type Condition ICD9-CM Code HHQ10-SO Code Onset Dates Condition Status SNOMED Code Problem Hypercholesteremia E78.00 Active 12132056 Problem Chronic kidney disease, stage III (moderate) N18.3 Active 679514907 Problem Controlled substance agreement signed Z79.899 Active 824132961 Problem Acquired hypothyroidism E03.9 Active 349779765 Problem Kidney disease, chronic, stage III (GFR 30-59 ml/min) N18.3 Active 167673415 Problem High risk medication use Z79.899 Active 926690285582041 Problem Anxiety F41.9 Active 09898816 ALLERGIES No Information ENCOUNTERS Encounter Location Date Diagnosis [facility] [id number] [place] [address] June, Encounter for well woman exam with routine gynecological exam Z01.419 ; Screening mammogram, encounter for Z12.31 and Anxiety F41.9 [place] [address] [place] [address] Apr, Anxiety F41.9 [place] [id number] [place] [address] Apr, [place] [address] [place] [address] Apr, Acquired hypothyroidism E03.9 [facility] [id number] [place] [address] Apr, Acquired hypothyroidism E03.9 ; Anxiety F41.9 ; Hypercholesteremia E78.00 and Kidney disease, chronic, stage III (GFR 30-59 ml/min) N18.3 [place] [id number] [place] [address] Mar, Controlled substance agreement signed Z79.899 [place] [address] [address] Feb, Chronic kidney disease, stage III (moderate) N18.3 [place] [address] [address] Feb, Acquired hypothyroidism E03.9 [place] [address] [address] Feb, Rash of unknown cause R21 and Anxiety F41.9 [place] [id number] [place] [address] Jan, Rash of unknown cause R21 [place] [address] [address] Dec, Rash of unknown cause R21 and Anxiety F41.9 [place] [id number] [place] [phone] Aug, Scabies B86 [place] [address] [address] June, [facility] [address] [id number] Sep, Dental examination V72.2 IMMUNIZATIONS No Known Immunizations SOCIAL HISTORY Never Assessed REASON FOR VISIT Lab orders PLAN OF CARE VITAL SIGNS MEDICATIONS No Known Medications RESULTS No Results PROCEDURES No Known procedures INSTRUCTIONS MEDICATIONS ADMINISTERED No Known Medications MEDICAL (GENERAL) HISTORY Type Description Date Medical History Hypothyroid Medical History Anxiety Surgical History Tubal Ligation Surgical History Gallbladder Removal
--- OUTSIDE RECORDS SUMMARY | 2018-06-25 08:56 | XMS REPORT ---
Author Author ELLIE GARNICA Organization [facility] Address [address] [place] [address] Care Team Providers Care Veterinary Parasitologist Name Role Phone GARNICAELLIE Wayne Unavailable PROBLEMS Type Condition ICD9-CM Code YKV49-JK Code Onset Dates Condition Status SNOMED Code Problem Hypercholesteremia E78.00 Active 63556876 Problem Chronic kidney disease, stage III (moderate) N18.3 Active 178900625 Problem Controlled substance agreement signed Z79.899 Active 072407429 Problem Acquired hypothyroidism E03.9 Active 595575553 Problem Kidney disease, chronic, stage III (GFR 30-59 ml/min) N18.3 Active 726367689 Problem High risk medication use Z79.899 Active 343083388291936 Problem Anxiety F41.9 Active 46235691 ALLERGIES No Known Allergies ENCOUNTERS Encounter Location Date Diagnosis [facility] [address] [place] [address] June, Encounter for well woman exam with routine gynecological exam Z01.419 ; Screening mammogram, encounter for Z12.31 and Anxiety F41.9 [place] [address] [place] [address] Apr, Anxiety F41.9 [place] [address] [place] [address] [id number] [place] [address] Apr, [place] [address] [place] [address] Apr, Acquired hypothyroidism E03.9 [facility] [id number] [place] [address] Apr, Acquired hypothyroidism E03.9 ; Anxiety F41.9 ; Hypercholesteremia E78.00 and Kidney disease, chronic, stage III (GFR 30-59 ml/min) N18.3 [place] [address] [id number] [place] [address] Mar, Controlled substance agreement signed Z79.899 [place] [address] [address] Feb, Chronic kidney disease, stage III (moderate) N18.3 [place] [address] [address] Feb, Acquired hypothyroidism E03.9 [place] [address] [address] Feb, Rash of unknown cause R21 and Anxiety F41.9 [place] [address] [address] Jan, Rash of unknown cause R21 [place] [address] [address] Dec, Rash of unknown cause R21 and Anxiety F41.9 [place] [address] [address] Aug, Scabies B86 [place] [address] [address] June, [facility] [address] [id number] Sep, Dental examination V72.2 IMMUNIZATIONS No Known Immunizations SOCIAL HISTORY Never Assessed REASON FOR VISIT Establish Care--tjanssenMA, --questions about doing blood work for thyroid. , -- bad anxiety, would like to get medication again for that. PLAN OF CARE Activity Details Follow Up 3 Months Reason:CHM/needs WWE VITAL SIGNS Height 63 in 2017-04-15 Weight 136 lbs 2017-04-15 Temperature 97.8 degrees Fahrenheit 2017-04-15 Heart Rate 80 bpm 2017-04-15 Respiratory Rate 18 2017-04-15 BMI 24.09 kg/m2 2017-04-15 Blood pressure systolic 90 mmHg 2017-04-15 Blood pressure diastolic 68 mmHg 2017-04-15 MEDICATIONS Medication Instructions Dosage Frequency Start Date End Date Duration Status Xanax 0.5 MG Orally Twice a day 1 tablet 12h 21 Dec, 2016 28 days Not-Taking Levothyroxine Sodium 50 MCG Orally Once a day 1 tablet on an empty stomach in the morning 24h 30 days Active Escitalopram Oxalate 10 mg Orally Once a day 1 tablet 24h Apr, 30 day(s) Active Triamcinolone Acetonide 0.1 % topical Twice a day for 7 days then stop for 7 days and apply unscented moisturizer repeat cycle until derm beatriz 1 beatriz to affected area Jan, Not-Taking RESULTS No Results PROCEDURES Procedure Date Ordered Result Body Site ASSAY THYROID STIM HORMONE April 15, 2017 VENIPUNCT, ROUTINE* April 15, 2017 INSTRUCTIONS MEDICATIONS ADMINISTERED No Known Medications MEDICAL (GENERAL) HISTORY Type Description Date Medical History Hypothyroid Medical History Anxiety Surgical History Tubal Ligation Surgical History Gallbladder Removal
--- OUTSIDE RECORDS SUMMARY | 2018-06-25 08:56 | XMS REPORT ---
Author Author ARASELI JONES Organization [employer] Address Unknown Phone Unavailable Care Team Providers Care Personnel Arbitrator Name Role Phone ARASELI JONES CP Unavailable Allergies No Known Allergies Problems Problem Type Condition ICD-9 Code Onset Dates Condition Status Assessment Dental examination V72.2 Active Medications No Known Medications Procedures Procedure Coding System Code Date INTRAORL-PERIAPICAL 1 FILM 67133 CPT-4 D0220 Oct 01, 2014 LTD ORAL EVALUATION - PROBLEM FOCUS CPT-4 D0140 Oct 01, 2014 Results No Known Results Summary Purpose [employer] Submission
--- OUTSIDE RECORDS SUMMARY | 2018-06-25 08:56 | XMS REPORT ---
Author Author ELLIE GARNICA Organization [facility] Address [address] [place] [address] Care Team Providers Care Tank Car Repairer Name Role Phone GARNICAELLIE Wayne Unavailable PROBLEMS Type Condition ICD9-CM Code CIS25-DU Code Onset Dates Condition Status SNOMED Code Problem Hypercholesteremia E78.00 Active 65203075 Problem Chronic kidney disease, stage III (moderate) N18.3 Active 905748426 Problem Controlled substance agreement signed Z79.899 Active 365384262 Problem Acquired hypothyroidism E03.9 Active 565919682 Problem Kidney disease, chronic, stage III (GFR 30-59 ml/min) N18.3 Active 824572578 Problem High risk medication use Z79.899 Active 714797411199732 Problem Anxiety F41.9 Active 18529640 ALLERGIES No Information ENCOUNTERS Encounter Location Date Diagnosis [facility] [id number] [place] [address] June, Encounter for well woman exam with routine gynecological exam Z01.419 ; Screening mammogram, encounter for Z12.31 and Anxiety F41.9 [place] [address] [place] [address] Apr, Anxiety F41.9 [place] [id number] [place] [address] Apr, [place] [address] [place] [address] Apr, Acquired hypothyroidism E03.9 [facility] [id number] [place] [address] Apr, Acquired hypothyroidism E03.9 ; Anxiety F41.9 ; Hypercholesteremia E78.00 and Kidney disease, chronic, stage III (GFR 30-59 ml/min) N18.3 [place] [address] [place] [address] Mar, Controlled substance agreement signed Z79.899 [place] [id number] [place] [address] Feb, Chronic kidney disease, stage III (moderate) N18.3 [place] [address] [address] Feb, Acquired hypothyroidism E03.9 [place] [id number] [place] [address] Feb, Rash of unknown cause R21 and Anxiety F41.9 [place] [address] [id number] [place] [address] Jan, Rash of unknown cause R21 [place] [address] [address] Dec, Rash of unknown cause R21 and Anxiety F41.9 [place] [address] [id number] [place] [address] Aug, Scabies B86 [place] [address] [id number] [place] [address] June, [facility] [address] [id number] Sep, Dental examination V72.2 IMMUNIZATIONS No Known Immunizations SOCIAL HISTORY Never Assessed REASON FOR VISIT Lab results PLAN OF CARE VITAL SIGNS MEDICATIONS Medication Instructions Dosage Frequency Start Date End Date Duration Status Cetirizine HCl 10 mg Orally Once a day 1 tablet 24h Jan, Apr, 30 day(s) Active Triamcinolone Acetonide 0.1 % topical Twice a day for 7 days then stop for 7 days and apply unscented moisturizer repeat cycle until derm beatriz 1 beatriz to affected area Jan, Active RESULTS No Results PROCEDURES No Known procedures INSTRUCTIONS MEDICATIONS ADMINISTERED No Known Medications MEDICAL (GENERAL) HISTORY Type Description Date Medical History Hypothyroid Medical History Anxiety Surgical History Tubal Ligation Surgical History Gallbladder Removal
--- OUTSIDE RECORDS SUMMARY | 2018-06-25 08:56 | XMS REPORT ---
Author Author ELLIE GARNICA Organization [facility] Address [address] [place] [address] Care Team Providers [employer] Tutor Name Role Phone GARNICAELLIE Wayne Unavailable PROBLEMS Type Condition ICD9-CM Code QYH48-QD Code Onset Dates Condition Status SNOMED Code Problem Hypercholesteremia E78.00 Active 92047361 Problem Chronic kidney disease, stage III (moderate) N18.3 Active 116737916 Problem Controlled substance agreement signed Z79.899 Active 698905377 Problem Acquired hypothyroidism E03.9 Active 185953473 Problem Kidney disease, chronic, stage III (GFR 30-59 ml/min) N18.3 Active 582569679 Problem High risk medication use Z79.899 Active 151391802238868 Problem Anxiety F41.9 Active 19383092 ALLERGIES No Information ENCOUNTERS Encounter Location Date Diagnosis [facility] [id number] [place] [phone] June, Encounter for well woman exam with routine gynecological exam Z01.419 ; Screening mammogram, encounter for Z12.31 and Anxiety F41.9 [place] [address] [id number] [place] [phone] Apr, Anxiety F41.9 [place] [id number] [place] [phone] Apr, [place] [id number] [place] [phone] Apr, Acquired hypothyroidism E03.9 [facility] [id number] [place] [phone] Apr, Acquired hypothyroidism E03.9 ; Anxiety F41.9 ; Hypercholesteremia E78.00 and Kidney disease, chronic, stage III (GFR 30-59 ml/min) N18.3 [place] [id number] [place] [phone] Mar, Controlled substance agreement signed Z79.899 [place] [id number] [place] [phone] Feb, Chronic kidney disease, stage III (moderate) N18.3 [place] [address] [address] Feb, Acquired hypothyroidism E03.9 [place] [id number] [place] [address] Feb, Rash of unknown cause R21 and Anxiety F41.9 [place] [id number] [place] [phone] Jan, Rash of unknown cause R21 [place] [address] [address] Dec, Rash of unknown cause R21 and Anxiety F41.9 [place] [id number] [place] [phone] Aug, Scabies B86 [place] [id number] [place] [phone] June, [facility] [address] [id number] Sep, Dental examination V72.2 IMMUNIZATIONS No Known Immunizations SOCIAL HISTORY Never Assessed REASON FOR VISIT medication refill PLAN OF CARE VITAL SIGNS MEDICATIONS Medication Instructions Dosage Frequency Start Date End Date Duration Status Xanax 0.5 MG Orally Twice a day 1 tablet 12h Dec, 28 days Active RESULTS Name Result Date Reference Range LIPID PANEL Lolly Carver [id number] Default TRIGLYCERIDES CHOLESTEROL, TOTAL Comment HDL CHOLESTEROL Please note LDL-CHOLESTEROL Request Problem CHOL/HDLC RATIO Request Problem NON HDL CHOLESTEROL Specimen Identification Status LDL Cholesterol Calc X Comment: VLDL Cholesterol Karsten HDL Cholesterol Triglycerides Cholesterol, Total Comment: CMP Request Problem NTI Urine Tube ([place]) Lolly Carver CMP14 Default Request Problem Request Problem Sodium, Serum Potassium, Serum Chloride, Serum Carbon Dioxide, Total BUN Creatinine, Serum eGFR If NonAfricn Am eGFR If Africn Am BUN/Creatinine Ratio Glucose, Serum Calcium, Serum Bilirubin, Total AST (SGOT) ALT (SGPT) Alkaline Phosphatase, S Protein, Total, Serum Albumin, Serum Globulin, Total A/G Ratio Specimen Identification Status Please note GLUCOSE UREA NITROGEN (BUN) CREATININE eGFR NON-AFR. NIGERIEN eGFR BUN/CREATININE RATIO SODIUM POTASSIUM CHLORIDE CARBON DIOXIDE CALCIUM PROTEIN, TOTAL ALBUMIN GLOBULIN ALBUMIN/GLOBULIN RATIO BILIRUBIN, TOTAL ALKALINE PHOSPHATASE AST ALT LIPID PANEL Lolly Carver CMP14 Default TRIGLYCERIDES CHOLESTEROL, TOTAL Comment HDL CHOLESTEROL Please note LDL-CHOLESTEROL Request Problem CHOL/HDLC RATIO Request Problem NON HDL CHOLESTEROL Specimen Identification Status LDL Cholesterol Calc X Comment: VLDL Cholesterol Karsten HDL Cholesterol Triglycerides Cholesterol, Total Comment: CMP Request Problem NTI Urine Tube ([place]) Lolly Carver CMP14 Default Request Problem Request Problem Sodium, Serum Potassium, Serum Chloride, Serum Carbon Dioxide, Total BUN Creatinine, Serum eGFR If NonAfricn Am eGFR If Africn Am BUN/Creatinine Ratio Glucose, Serum Calcium, Serum Bilirubin, Total AST (SGOT) ALT (SGPT) Alkaline Phosphatase, S Protein, Total, Serum Albumin, Serum Globulin, Total A/G Ratio Specimen Identification Status Please note GLUCOSE UREA NITROGEN (BUN) CREATININE eGFR NON-AFR. NIGERIEN eGFR BUN/CREATININE RATIO SODIUM POTASSIUM CHLORIDE CARBON DIOXIDE CALCIUM PROTEIN, TOTAL ALBUMIN GLOBULIN ALBUMIN/GLOBULIN RATIO BILIRUBIN, TOTAL ALKALINE PHOSPHATASE AST ALT CBC ABSOLUTE LYMPHOCYTES Please note ABSOLUTE PLASMA CELLS WBC ABSOLUTE PROLYMPHOCYTES RBC ABSOLUTE REACTIVE LYMPHOCYTES Hemoglobin CBC MORPHOLOGY Hematocrit CONTAINER TYPE: MCV FINAL RESOLUTION MCH MCHC MESSAGE: NOTE RDW PLASMA CELLS Platelets NRBC PLATELET ESTIMATION Neutrophils PROLYMPHOCYTES Lymphs QUESTION/PROBLEM Monocytes WHITE BLOOD CELL COUNT Eos RED BLOOD CELL COUNT Basos HEMOGLOBIN HEMATOCRIT Immature Granulocytes MCV Neutrophils (Absolute) Lymphs (Absolute) MCH MCHC Monocytes(Absolute) Eos (Absolute) RDW Baso (Absolute) PLATELET COUNT Immature Grans (Abs) NEUTROPHILS BAND NEUTROPHILS Immature Cells Bands ABSOLUTE BAND NEUTROPHILS Blasts/blast like cells METAMYELOCYTES Megakaryocytes ABSOLUTE METAMYELOCYTES Metamyelocytes MYELOCYTES Myelocytes ABSOLUTE MYELOCYTES Other, Lineage Uncertain PROMYELOCYTES Promyelocytes ABSOLUTE PROMYELOCYTES ABSOLUTE NEUTROPHILS Hematology Comments: LYMPHOCYTES Request Problem REACTIVE LYMPHOCYTES Request Problem ABSOLUTE LYMPHOCYTES MONOCYTES ABSOLUTE MONOCYTES EOSINOPHILS ABSOLUTE EOSINOPHILS BASOPHILS ABSOLUTE BASOPHILS BLASTS ABSOLUTE BLASTS NUCLEATED RBC ABSOLUTE NUCLEATED RBC COMMENT(S) MPV THYROID ANALYZER 2017-03-03 Lolly Carver CMP14 Default INTERPRETATION Interpretive Comment Interpretive Comment Please note Request Problem Request Problem T4, FREE T4,Free (Direct) T4,Free (Direct) Thyroid Peroxidase (TPO) Ab THYROID PEROXIDASE ANTIBODIES Triiodothyronine, Free, Serum TSH TSH PROCEDURES Procedure Date Ordered Result Body Site LIPID PANEL Mar 01, 2017 COMPREHEN METABOLIC PANEL Mar 01, 2017 ASSAY THYROID STIM HORMONE Mar 01, 2017 COMPLETE CBC W/AUTO DIFF WBC Mar 01, 2017 INSTRUCTIONS MEDICATIONS ADMINISTERED No Known Medications MEDICAL (GENERAL) HISTORY Type Description Date Medical History Hypothyroid Medical History Anxiety Surgical History Tubal Ligation Surgical History Gallbladder Removal
[2018-06-25] MEDS ORDERED: HYDR25SU28 RC (09:16)
[2018-06-25] MEDS ORDERED: DIBU56.7 RC (09:18)
--- NOTE | 2018-06-25 09:20 | ED GI ---
General Chief Complaint: Rect Problems Stated Complaint: PT THINKS SHE HAS HEMORRHOIDS Source of Information: Patient, RN Notes Reviewed Exam Limitations: No Limitations History of Present Illness Date Seen by Provider: June 25, 2018 Time Seen by Provider: 09:10 Initial Comments Patient presents c/ c/o worsening rectal pain and bleeding since Wednesday. Started p/ straining while having a BM. Had to leave work this AM secondary to the pain. Timing/Duration: 2-3 Days Severity/Quality: Severe, Sharp, Stabbing Location: Other (rectum) Radiation: No Radiation Activities at Onset: Other (see above) Modifying Factors: Worsens With Defecating (& sitting) Associated Symptoms: Denies Symptoms Allergies and Home Medications Allergies Coded Allergies: No Known Drug Allergies (Unverified , 06/25/18) Home Medications Dibucaine 56.7 Gm Oint...g., 1 APPLIC RC Q6H PRN for pain Prescribed by: KIARRA MCGREGOR on 06/25/18917 Hydrocortisone Acetate 25 Mg Supp.rect, 25 MG RC BID Prescribed by: KIARRA MCGREGOR on 06/25/18915 Patient Home Medication List Home Medication List Reviewed: Yes Review of Systems Review of Systems Constitutional: see HPI Gastrointestinal: See HPI, Rectal Bleeding (& pain) All Other Systems Reviewed Negative Unless Noted: Yes (Negative excepted noted.) Physical Exam Vital Signs Vital Signs - First Documented 06/25/18 09:14 Temp 96.8 Pulse 83 Resp 20 B/P (MAP) 101/80 (87) Pulse Ox 97 O2 Delivery Room Air Capillary Refill : Height/Weight/BMI Height: '" Weight: lbs. oz. kg; BMI Method: General Appearance: WD/WN, mild distress Respiratory: no respiratory distress Cardiovascular: regular rate, rhythm Rectal: hemorrhoids (multiple thrombosed; 1 @ 9 o'clock has ruptured and is oozing blood. ), tenderness Neurologic/Psychiatric: no motor/sensory deficits, alert, oriented x 3 Skin: warm/dry Progress/Results/Core Measures Results/Orders Vital Signs/I&O 06/25/18 06/25/18 09:14 09:22 Temp 96.8 96.8 Pulse 83 83 Resp 20 20 B/P (MAP) 101/80 (87) 101/80 (87) Pulse Ox 97 97 O2 Delivery Room Air Room Air Departure Impression Primary Impression: Hemorrhoids Disposition: 01 HOME, SELF-CARE Condition: Stable Departure-Patient Inst. Decision time for Depature: 09:15 Referrals: JAYJAY LOPEZ PANKAJ K MD (PCP/Family) Primary Care Physician Patient Instructions: Hemorrhoids (DC) Add. Discharge Instructions: All discharge instructions reviewed with patient and/or family. Voiced understanding. GOING TO NEED SURGICAL FOLLOW UP FOR DEFINITIVE TREATMENT. THE SURGEON ACCOUNT MANAGER EDUCATION @ [facility] IN [place] IS LISTED BELOW. RECOMMEND 400 mg OF IBUPROFEN &/OR 1000 mg OF TYLENOL EVERY 6 HOURS NEEDED FOR PAIN. DO NOT EXCEED 4000 mg OF TYLENOL IN A 24 HOUR PERIOD. Scripts Dibucaine (Nupercainal) 56.7 Gm Oint...g. 1 APPLIC RC Q6H PRN for pain, #1 TUBE PRN Refills Prov: KIARRA MCGREGOR DO 06/25/18 Hydrocortisone Acetate (Anusol-Hc) 25 Mg Supp.rect 25 MG RC BID for 14 Days, #28 SUPP.RECT 0 Refills Prov: KIARRA MCGREGOR DO 06/25/18 KIARRA MCGREGOR DO June 25, 2018 09:20
[2018-06-25 09:22] VITALS: BP 101/80
== END 2018-06-25 09:25 | disposition home or self-care (01) ==
LOC: ER FS 08:51
DX: K64.5 Perianal venous thrombosis (principal); Z79.51 Long term (current) use of inhaled steroids
CPT/HCPCS: 99282

== ENCOUNTER 2018-09-02 09:59 | Emergency (ER) | payer OTHER ==
[~2018-09-02] VITALS: Ht 160 cm; Wt 61.2 kg
[~2018-09-02 09:59] MED LIST: DIBU56.7 RC; HYDR25SU28 RC
[2018-09-02] MEDS ORDERED: IBUPROFEN TABLET 200 MG TAB PO ONE (10:45)
[2018-09-02] MEDS ORDERED: NS IV 1000 ML 1,000 ML IV SCH ×2 (10:45→11:45)
[2018-09-02 10:52] LABS: BASOPHILS % (AUTO) 1 % (0-10); EOSINOPHILS % (AUTO) 2 % (0-10); HEMATOCRIT 39 % (35-52); HEMOGLOBIN 13.1 G/DL (11.5-16.0); LYMPHOCYTES % (AUTO) 33 % (12-44); MEAN CORPUSCULAR HEMOGLOBIN 32 PG (25-34); MEAN CORPUSCULAR HGB CONC 34 G/DL (32-36); MEAN CORPUSCULAR VOLUME 94 FL (80-99); MEAN PLATELET VOLUME 9.8 FL (7.4-10.4); MONOCYTES % (AUTO) 6 % (0-12); NEUTROPHILS % (AUTO) 58 % (42-75); PLATELET COUNT 253 10^3/uL (130-400); RED CELL DISTRIBUTION WIDTH 12.6 % (10.0-14.5); WHITE BLOOD COUNT 8.4 10^3/uL (4.3-11.0)
[2018-09-02 10:53] LABS: BASOPHILS # (AUTO) 0.1 10^3/uL (0.0-0.1); EOSINOPHILS # (AUTO) 0.2 10^3/uL (0.0-0.3); LYMPHOCYTES # (AUTO) 2.8 X 10^3 (1.0-4.0); MONOCYTES # (AUTO) 0.5 X 10^3 (0.0-1.0); NEUTROPHILS # (AUTO) 4.9 X 10^3 (1.8-7.8)
--- OUTSIDE RECORDS SUMMARY | 2018-09-02 10:54 | XMS REPORT ---
Author Author SERG DICKERSON Organization [facility] Address [address] [place] [address] Care Team Providers Care Gun Striper Name Role Phone SERG DICKERSON Unavailable PROBLEMS Type Condition ICD9-CM Code NZD06-SW Code Onset Dates Condition Status SNOMED Code Problem Anxiety F41.9 Active 51570130 Problem High risk medication use Z79.899 Active 415974016519462 Problem Controlled substance agreement signed Z79.899 Active 273497108 Problem Hypercholesteremia E78.00 Active 63113351 Problem Macrocytosis without anemia D75.89 Active 144961107 Problem Acquired hypothyroidism E03.9 Active 995728416 Problem Moderate episode of recurrent major depressive disorder F33.1 Active 631427341 Problem Kidney disease, chronic, stage III (GFR 30-59 ml/min) N18.3 Active 506824540 Problem Chronic kidney disease, stage III (moderate) N18.3 Active 993111775 Problem Neuropathy G62.9 Active 258453677 Problem Vitamin D deficiency E55.9 Active 60565218 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 535936947 ALLERGIES Substance Reaction Event Type Date Status Zoloft manic Drug Allergy Apr, Active Vicodin nausea Drug Allergy Apr, Active ENCOUNTERS Encounter Location Date Diagnosis [address] [address] Jul, Moderate episode of recurrent major depressive disorder F33.[address] [address] Jul, Acquired hypothyroidism E03.9 ; Kidney disease, chronic, stage III (GFR 30- 59 ml/min) N18.3 ; Vitamin D deficiency E55.9 and Moderate episode of recurrent major depressive disorder F33.[address] [address] 20 May, 2019 Hemorrhoid K64.9 ; Acquired hypothyroidism E03.9 and Vitamin D deficiency E55.[address] [address] June, [address] [address] June, Acquired hypothyroidism E03.9 ; Kidney disease, chronic, stage III (GFR 30- 59 ml/min) N18.3 ; Vitamin D deficiency E55.9 ; Vitamin B12 deficiency E53.8 and Acute pain of left shoulder M25.[address] [address] June, Acquired hypothyroidism E03.[address] [address] May, Acquired hypothyroidism E03.9 [address] [address] [id number] [place] [address] Apr, Acquired hypothyroidism E03.9 and Asymptomatic microscopic hematuria R31.[address] [address] Apr, Acquired hypothyroidism E03.9 ; Hypercholesteremia E78.00 and Anxiety F41.9 [address] [id number] [place] [address] Mar, [facility] [id number] [place] [address] Dec, Asymptomatic microscopic hematuria R31.21 ; Acquired hypothyroidism E03.9 ; Vitamin D deficiency E55.9 ; Macrocytosis without anemia D75.89 ; Chronic kidney disease, stage III (moderate) N18.3 and 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 [facility] [id number] [place] [address] Dec, [facility] [id number] [place] [phone] Dec, [facility] [id number] [place] [address] Nov, Chronic kidney disease, stage III (moderate) N18.3 [address] [address] [address] Oct, Vitamin D deficiency E55.9 and Acquired hypothyroidism E03.9 [address] [address] [address] [address] Oct, Acquired hypothyroidism E03.9 ; Neuropathy G62.9 and Hypercholesteremia E78.00 [address] [address] [address] [address] Aug, Anxiety F41.9 [address] [address] [address] [address] June, Encounter for well woman exam with routine gynecological exam Z01.419 ; Screening mammogram, encounter for Z12.31 and Anxiety F41.9 [address] [address] [address] Apr, Anxiety F41.9 [address] [address] Apr, [address] [address] [address] Apr, Acquired hypothyroidism E03.9 [address] [address] [address] Apr, Acquired hypothyroidism E03.9 ; Anxiety F41.9 ; Hypercholesteremia E78.00 and Kidney disease, chronic, stage III (GFR 30-59 ml/min) N18.3 [place] [id number] [place] [address] Mar, Controlled substance agreement signed Z79.899 [address] [address] [address] Feb, Chronic kidney disease, stage III (moderate) N18.3 [address] [address] [address] [address] Feb, Acquired hypothyroidism E03.9 [facility] [address] [address] Feb, Rash of unknown cause R21 and Anxiety F41.9 [facility] [id number] [address] Jan, Rash of unknown cause R21 [place] [id number] [place] [address] Dec, Rash of unknown cause R21 and Anxiety F41.9 [id number] [address] Aug, Scabies B86 [address] [id number] [address] June, [facility] [id number] [id number] Sep, Dental examination V72.2 IMMUNIZATIONS No Known Immunizations SOCIAL HISTORY Never Assessed REASON FOR VISIT Establish Care. Requesting to check thyroid.-awoods PLAN OF CARE Activity Details Follow Up ,6 Weeks Reason:fu with labs VITAL SIGNS Height 63 in 2018-04-18 Weight 137 lbs 2018-04-18 Temperature 99.6 degrees Fahrenheit 2018-04-18 Heart Rate 85 bpm 2018-04-18 Respiratory Rate 18 2018-04-18 BMI 24.27 kg/m2 2018-04-18 Blood pressure systolic 124 mmHg 2018-04-18 Blood pressure diastolic 68 mmHg 2018-04-18 MEDICATIONS Medication Instructions Dosage Frequency Start Date End Date Duration Status Levothyroxine Sodium 100 MCG Orally Once a day 1 capsule 24h Active Escitalopram Oxalate 20 mg Orally Once a day 1 tablet 24h Apr, Not-Taking Betamethasone Dipropionate 0.05 % Externally Once a day 1 application to affected area 24h Dec, 10 days Not-Taking Xanax 0.25 MG Orally at bedtime as needed 1 tablet Apr, 1 dose Active Gabapentin 300 MG Orally Once a day 2 capsule at hs 24h Oct, Not-Taking Vitamin D (Ergocalciferol) 33878 UNIT Orally once weekly 1 capsule Oct, Not-Taking RESULTS No Results PROCEDURES Procedure Date Ordered Result Body Site VENIPUNCT, ROUTINE* April 18, 2018 COMPLETE CBC W/AUTO DIFF WBC April 18, 2018 COMPREHEN METABOLIC PANEL April 18, 2018 ASSAY OF FREE THYROXINE April 18, 2018 ASSAY THYROID STIM HORMONE April 18, 2018 INSTRUCTIONS MEDICATIONS ADMINISTERED No Known Medications MEDICAL (GENERAL) HISTORY Type Description Date Medical History Hypothyroid Medical History Anxiety Medical History Neuropathy-DX by Sabi Sloan 10/22/17 Medical History kidney failure Surgical History Tubal Ligation Surgical History Gallbladder Removal Surgical History oral surgery Hospitalization History childbirth
--- OUTSIDE RECORDS SUMMARY | 2018-09-02 10:55 | XMS REPORT | Continuity of Care Document ---
Author Organization Unknown Address Unknown Allergies Active Description Code Type Severity Reaction Onset Reported/Identified Relationship to Patient Clinical Status Yes No Known Drug Allergies [id number] Drug Allergy Unknown N/A 06/25/2018 Medications There is no data. 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 Results Test Result Range TISSUE, 2 SPECIMENS - 12/29/16 10:59 A SOURCE NRG A GROSS DESCRIPTION NRG A DIAGNOSIS NRG A COMMENT NR TSH - 04/15/17 14:45 TSH 89.97 mIU/L NRG SUREPATH PAP AND HPV mRNA E6/E7 - 06/25/17 13:36 CLINICAL INFORMATION: NRG LMP: 06/08/17 NRG PREV. PAP: 1993 NRG PREV. BX: NEGATIVE NRG SOURCE: Cervix NRG STATEMENT OF ADEQUACY: NRG INTERPRETATION/RESULT: NRG FIRST AID NURSE: NRG HPV mRNA E6/E7, SUREPATH VIAL Not Detected NOT DETECTED COMMENT NR TSH - 10/25/17 19:33 TSH >150.00 mIU/L [...] 7-25 CREATININE 1.22 mg/dL 0.50-1.10 eGFR NON-AFR. SL[place] 54 mL/min/1.73m2 > OR=60 eGFR 62 mL/min/1.73m2 [...] 01/06/18 16:10 FOLATE, SERUM 10.3 ng/mL NRG TSH w/ FREE T4 - 04/18/18 14:38 TSH 22.60 mIU/L NRG T4, FREE 0.8 ng/dL 0.8-1.8 CMP - 04/18/18 14:38 GLUCOSE 90 mg/dL 65-99 UREA NITROGEN (BUN) 15 mg/dL 7-25 CREATININE 0.89 mg/dL 0.50-1.10 eGFR NON-AFR. SLOVAK 79 mL/min/1.73m2 > OR=60 eGFR 91 mL/min/1.73m2 > OR=60 BUN/CREATININE RATIO NOT APPLICABLE (calc) 6-22 SODIUM 139 mmol/L 135-146 POTASSIUM 4.7 mmol/L 3.5-5.3 CHLORIDE 105 mmol/L 98-110 CARBON DIOXIDE 25 mmol/L 20-32 CALCIUM 9.4 mg/dL 8.6-10.2 PROTEIN, TOTAL 6.6 g/dL 6.1-8.1 ALBUMIN 4.0 g/dL 3.6-5.1 GLOBULIN 2.6 g/dL (calc) 1.9-3.7 ALBUMIN/GLOBULIN RATIO 1.5 (calc) 1.0-2.5 BILIRUBIN, TOTAL 0.3 mg/dL 0.2-1.2 ALKALINE PHOSPHATASE 71 U/L 33-115 AST 14 U/L 10-30 ALT 7 U/L 6-29 CBC - 04/18/18 14:38 WHITE BLOOD CELL COUNT 9.0 Thousand/uL 3.8-10.8 RED BLOOD CELL COUNT 4.02 Million/uL 3.80-5.10 HEMOGLOBIN 12.8 g/dL 11.7-15.5 HEMATOCRIT 39.5 % 35.0-45.0 MCV 98.3 fL 80.0-100.0 MCH 31.8 pg 27.0-33.0 MCHC 32.4 g/dL 32.0-36.0 RDW 11.7 % 11.0-15.0 PLATELET COUNT 271 Thousand/uL 140-400 MPV 9.8 fL 7.5-12.5 ABSOLUTE NEUTROPHILS 5382 cells/uL 1991-0315 ABSOLUTE LYMPHOCYTES 2772 cells/uL 850-3900 ABSOLUTE MONOCYTES 621 cells/uL 200-950 ABSOLUTE EOSINOPHILS 144 cells/uL 15-500 ABSOLUTE BASOPHILS 81 cells/uL 0-200 NEUTROPHILS 59.8 % NRG LYMPHOCYTES 30.8 % NRG MONOCYTES 6.9 % NRG EOSINOPHILS 1.6 % NRG BASOPHILS 0.9 % NRG TSH w/ FREE T4 - 06/22/18 11:30 TSH 0.25 mIU/L NRG T4, FREE 1.6 ng/dL 0.8-1.8 CMP - 06/22/18 11:30 GLUCOSE 122 mg/dL 65-99 UREA NITROGEN (BUN) 13 mg/dL 7-25 CREATININE 0.99 mg/dL 0.50-1.10 eGFR NON-AFR. [place] 69 mL/min/1.73m2 > OR=60 eGFR 80 mL/min/1.73m2 > OR=60 BUN/CREATININE RATIO NOT APPLICABLE (calc) 6-22 SODIUM 141 mmol/L 135-146 POTASSIUM 4.1 mmol/L 3.5-5.3 CHLORIDE 107 mmol/L 98-110 CARBON DIOXIDE 25 mmol/L 20-32 CALCIUM 10.4 mg/dL 8.6-10.2 PROTEIN, TOTAL 6.9 g/dL 6.1-8.1 ALBUMIN 4.0 g/dL 3.6-5.1 GLOBULIN 2.9 g/dL (calc) 1.9-3.7 ALBUMIN/GLOBULIN RATIO 1.4 (calc) 1.0-2.5 BILIRUBIN, TOTAL 0.4 mg/dL 0.2-1.2 ALKALINE PHOSPHATASE 79 U/L 33-115 AST 13 U/L 10-30 ALT 6 U/L 6-29 CBC - 06/22/18 11:30 WHITE BLOOD CELL COUNT 7.3 Thousand/uL 3.8-10.8 RED BLOOD CELL COUNT 4.33 Million/uL 3.80-5.10 HEMOGLOBIN 13.3 g/dL 11.7-15.5 HEMATOCRIT 40.9 % 35.0-45.0 MCV 94.5 fL 80.0-100.0 MCH 30.7 pg 27.0-33.0 MCHC 32.5 g/dL 32.0-36.0 RDW 12.1 % 11.0-15.0 PLATELET COUNT 258 Thousand/uL 140-400 MPV 10.8 fL 7.5-12.5 ABSOLUTE NEUTROPHILS 3628 cells/uL 3133-2162 ABSOLUTE LYMPHOCYTES 2993 cells/uL 850-3900 ABSOLUTE MONOCYTES 496 cells/uL 200-950 ABSOLUTE EOSINOPHILS 124 cells/uL 15-500 ABSOLUTE BASOPHILS 58 cells/uL 0-200 NEUTROPHILS 49.7 % NRG LYMPHOCYTES 41.0 % NRG MONOCYTES 6.8 % NRG EOSINOPHILS 1.7 % NRG BASOPHILS 0.8 % NRG VITAMIN D, 25-H - 06/22/18 11:30 VITAMIN D,25-OH,TOTAL,IA 8 ng/mL 30-100 VITAMIN B12/FOLATE, SERUM PANEL - 06/22/18 11:30 VITAMIN B12 428 pg/mL 200-1100 FOLATE, SERUM 9.4 ng/mL NRG TSH w/ FREE T4 - 08/01/18 14:12 TSH 1.99 mIU/L NRG T4, FREE 1.4 ng/dL 0.8-1.8 VITAMIN D, 25-H - 08/01/18 14:12 VITAMIN D,25-OH,TOTAL,IA 14 ng/mL 30-100 Encounters ACCT No. Visit Date/Time Discharge Status Pt. Type Provider Facility Loc./Unit Complaint [id number] 08/01/2018 13:30:00 08/01/2018 23:59:59 CLS Outpatient SERG DICKERSON [facility] [id number] 08/01/2018 13:30:00 Document Registration [id number] 06/22/2018 11:00:00 Document Registration [id number] 04/18/2018 13:45:00 Document Registration [id number] 01/06/2018 14:20:00 Document Registration [id number] 10/25/2017 18:40:00 Document Registration [id number] 06/25/2017 13:00:00 Document Registration [id number] 04/15/2017 14:00:00 Document Registration [id number] 12/29/2016 08:00:00 Document Registration [id number] 06/25/2018 08:51:00 06/25/2018 09:25:00 DIS Outpatient KIARRA MCGREGOR DO [facility] FS PT THINKS SHE HAS HEMORRHOIDS
[2018-09-02 11:21] LABS: CARBON DIOXIDE 23 MMOL/L (21-32); CHLORIDE 97 MMOL/L (98-107); POTASSIUM 4.1 MMOL/L (3.6-5.0); SODIUM 134 MMOL/L (135-145)
[2018-09-02 11:22] LABS: BUN/CREATININE RATIO 12; CALCIUM 9.7 MG/DL (8.5-10.1); CREATININE SERUM 0.85 MG/DL (0.60-1.30); GFR ESTIMATED > 60; GLUCOSE 104 MG/DL (70-105)
--- NOTE | 2018-09-02 12:18 | ED General ---
General Chief Complaint: Back Problems Stated Complaint: BACK PAIN Nursing Triage Note: Patient reports intermittent lower back pain for several days, states she only has pain with movement, no pain when lying still. She states she has not taken anything at home for pain relief. Nursing Sepsis Screen: No Definite Risk Source of Information: Patient Exam Limitations: No Limitations History of Present Illness Date Seen by Provider: Sep 02, 2018 Time Seen by Provider: 10:45 Initial Comments Patient is a 42-year-old female presents with lower back pain which reproduces ambulation, trunk rotation. Patient works at [employer]. She denies heavy lifting or repetitive strain activity. Denies history of chronic back pain. Patient also reports dizziness and intermittent for the past few days and worse with position change and standing. Patient noted to be bradycardic with heart rate in 40s and hypotensive blood pressure in the 60s. Patient denies history of heart disease and is not on any blood pressure medications. She denies taking any pain medications prior to the arrival. No constitutional symptoms. Specifically, patient denies fever chills, sweats. No chest pain palpitations, abdominal pain. No urinary frequency urgency or dysuria. No other acute symptoms or complaints. Last menstrual period was one month ago. Timing/Duration: 1-2 Days Severity: Moderate Associated Systoms: Other (orthostatic dizziness) Allergies and Home Medications Allergies Coded Allergies: acetaminophen (Verified Adverse Reaction, Unknown, 09/02/18) hydrocodone (Verified Adverse Reaction, Unknown, 09/02/18) sertraline (Verified Adverse Reaction, Unknown, 09/02/18) Home Medications Dibucaine 56.7 Gm Oint...g., 1 APPLIC RC Q6H PRN for pain Prescribed by: KIARRA MCGREGOR on 06/25/18917 Hydrocortisone Acetate 25 Mg Supp.rect, 25 MG RC BID Prescribed by: KIARRA MCGREGOR on 06/25/18 0916 Patient Home Medication List Home Medication List Reviewed: Yes Review of Systems Review of Systems Constitutional: see HPI EENTM: see HPI Respiratory: see HPI Cardiovascular: see HPI Gastrointestinal: see HPI Genitourinary: see HPI Musculoskeletal: see HPI Skin: see HPI Psychiatric/Neurological: See HPI Hematologic/Lymphatic: See HPI Past Nudmken-Ojkqpi-Uyhsgh Hx Past Med/Social Hx: Reviewed Nursing Past Med/Soc Hx Patient Social History Type Used: Cigarettes 2nd Hand Smoke Exposure: No Recent Foreign Travel: No Contact w/Someone Who Travel: No Recent Infectious Disease Expo: No Recent Hopitalizations: No Seasonal Allergies Seasonal Allergies: No Past Medical History Surgeries: Yes Gallbladder, Tubal Ligation Respiratory: No Cardiac: No Neurological: No 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 oz. 61.609854aw; BMI Method:Stated General Appearance: No Apparent Distress Eyes: Bilateral Eye Normal Inspection, Bilateral Eye PERRL, Bilateral Eye EOMI HEENT: PERRL/EOMI Neck: Supple Respiratory: Chest Non Tender, Lungs Clear, Normal Breath Sounds Cardiovascular: No Edema, No Murmur, Bradycardia Gastrointestinal: Normal Bowel Sounds Back: No Vertebral Tenderness, Muscle Spasm (paravertebral lumvar muscle pain, spasm tenderness to palpation. Pain reproduces was transportation and movement), Other Neurologic/Psychiatric: Alert, Oriented x3 Skin: Normal Color Focused Exam Sepsis Stage: Ruled Out Progress/Results/Core Measures Suspected Sepsis Recent Fever Within 48 Hours: No Infection Criteria Present: None New/Unexplained Altered Menta: No Sepsis Screen: No Definite Risk SIRS Temperature:97.6 Pulse: 75 Respiratory Rate: 16 Laboratory Tests 09/02/18 10:40: White Blood Count 8.4 Blood Pressure 63 /44 Mean: 50 Laboratory Tests 09/02/18 10:40: Creatinine 0.85, Platelet Count 253 Results/Orders Lab Results Laboratory Tests Test 09/02/18 10:40 09/02/18 10:57 Range/Units White Blood Count 8.4 4.3-11.0 10^3/uL Red Blood Count 4.10 L 4.35-5.85 10^6/uL Hemoglobin 13.1 11.5-16.0 G/DL Hematocrit 39 35-52 % Mean Corpuscular Volume 94 80-99 FL Mean Corpuscular Hemoglobin 32 25-34 PG Mean Corpuscular Hemoglobin Concent 34 32-36 G/DL Red Cell Distribution Width 12.6 10.0-14.5 % Platelet Count 253 130-400 10^3/uL Mean Platelet Volume 9.8 7.4-10.4 FL Neutrophils (%) (Auto) 58 42-75 % Lymphocytes (%) (Auto) 33 12-44 % Monocytes (%) (Auto) 6 0-12 % Eosinophils (%) (Auto) 2 0-10 % Basophils (%) (Auto) 1 0-10 % Neutrophils # (Auto) 4.9 1.8-7.8 X 10^3 Lymphocytes # (Auto) 2.8 1.0-4.0 X 10^3 Monocytes # (Auto) 0.5 0.0-1.0 X 10^3 Eosinophils # (Auto) 0.2 0.0-0.3 10^3/uL Basophils # (Auto) 0.1 0.0-0.1 10^3/uL Sodium Level 134 L 135-145 MMOL/L Potassium Level 4.1 3.6-5.0 MMOL/L Chloride Level 97 L 98-107 MMOL/L Carbon Dioxide Level 23 21-32 MMOL/L Anion Gap 14 5-14 MMOL/L Blood Urea Nitrogen 10 7-18 MG/DL Creatinine 0.85 0.60-1.30 MG/DL Estimat Glomerular Filtration Rate > 60 BUN/Creatinine Ratio 12 Glucose Level 104 70-105 MG/DL Calcium Level 9.7 8.5-10.1 MG/DL Serum Test, Qualitative NEGATIVE NEGATIVE My Orders Orders - EVANGELINA WARREN DO Cbc With Automated Diff (09/02/18 10:35) Basic Metabolic Panel (09/02/18 10:35) Hcg,Qualitative Serum (09/02/18 10:35) Ekg Tracing (09/02/18 10:35) Ns Iv 1000 Ml (Sodium Chloride 0.9%) (09/02/18 10:45) Ibuprofen Tablet (Motrin Tablet) (09/02/18 10:45) Thyroid Stimulating Hormone (09/02/18 10:57) Ns Iv 1000 Ml (Sodium Chloride 0.9%) (09/02/18 11:45) Ua Culture If Indicated (09/02/18 11:35) Ct Angio Chest/Abd/Pelv W (09/02/18 12:09) Medications Given in ED Current Medications Medications Dose Ordered Sig/Cheryle Route Start Time Stop Time Status Last Admin Dose Admin Ibuprofen 400 mg ONCE ONCE PO 09/02/18 10:45 09/02/18 10:46 DC 09/02/18 10:51 400 MG Vital Signs/I&O 09/02/18 10:15 Temp 97.6 Pulse 75 Resp 16 B/P (MAP) 63/44 (50) Pulse Ox 98 O2 Delivery Room Air Capillary Refill : Less Than 3 Seconds Blood Pressure Mean: 50 Departure Communication (Admissions) EKG reveals sinus bradycardia with a rate of 42. Blood pressure, remains in the 80s despite 2 L of IV fluids. Patient is not anemic. back pain is reproducible not associated with neurologic deficits.. Will obtain UA, CT to rule out dissection. Dr. Anand accepts [facility]. Dr. King immigration judge for cardiology agrees to consult. Pseudomonal Risk: No known risk Impression Primary Impression: Bradycardia Additional Impressions: Hypotension Lumbar back pain Disposition: ADMITTED INPATIENT Condition: Improved Admissions Decision to Admit Reason: Admit from ER (Trauma) Decision to Admit/Date: Sep 02, 2018 Time/Decision to Admit Time: 11:30 Transfer Time Spoke to Accepting Phy: 12:00 (Dr. Anand) Method of Transfer: EMS Departure-Patient Inst. Referrals: SERG DICKERSON MD (PCP/Family) Primary Care Physician EVANGELINA WARREN DO Sep 02, 2018 12:18
[2018-09-02] MEDS ORDERED: IOHEXOL 350 MG/ML 150 ML (OMNIPAQUE 350) VIAL IV ONE (12:30)
[2018-09-02] MEDS ORDERED: HOLD METFORMIN - RECEIVED CONTRAST 20 ML VIAL IV SCH (12:30)
[2018-09-02] MEDS ORDERED: NS 100 ML (IVPB) BAG IV ONE (12:30)
[2018-09-02] MEDS ORDERED: CATHETER FLUSH 10 ML SYR IV PRN (12:30)
[2018-09-02 12:31] LABS: BACTERIA,URINE NEGATIVE /HPF; BILIRUBIN,URINE NEGATIVE (NEGATIVE); CLARITY,URINE CLEAR; COLOR,URINE YELLOW; GLUCOSE, URINE (UA) NEGATIVE (NEGATIVE); KETONES,URINE NEGATIVE (NEGATIVE); LEUKOCYTE ESTERASE ,URINE NEGATIVE (NEGATIVE); NITRITE,URINE NEGATIVE (NEGATIVE); PH,URINE 5.5 (5-9); PROTEIN,URINE NEGATIVE (NEGATIVE); UROBILINOGEN,URINE NORMAL (NORMAL)
--- NOTE | 2018-09-02 13:24 | Diagnostic Imaging Report ---
PROCEDURE: CT angiography of the chest with contrast and CT abdomen and pelvis with contrast. TECHNIQUE: Multiple contiguous axial images were obtained through the chest, abdomen and pelvis after administration of intravenous contrast. 3D MIP reconstructed CT angiography acquisitions of the aorta were then performed. Auto Exposure Controls were utilized during the CT exam to meet ALARA standards for radiation dose reduction. INDICATION: Back pain for 2 days. COMPARISON: None. CTA chest: No evidence of dissection or aneurysm is seen in the ascending or descending thoracic aorta or abdominal aorta. There is severe stenosis of the right brachiocephalic artery just distal to the origin of approximately 80-90%. This may be secondary to dissection. There is good flow to the distal brachiocephalic artery and right subclavian and carotid arteries. Severe stenosis of the origin of the left subclavian artery is present of at least 90% secondary to atheromatous plaque. The celiac axis and SMA are well visualized and are widely patent. The FAISAL is not well seen. Single renal arteries are seen bilaterally which demonstrate no significant stenosis. There is atherosclerotic plaque involving the aorta and bilateral iliac arteries without flow-limiting stenosis. The heart size is within normal limits. No pericardial effusion is present. There is no mediastinal, hilar, or axillary lymphadenopathy. A cyst with solid component is seen in the left apex measuring 2.4 x 1.7 cm (image 21 series 2). Centrilobular micronodules are seen throughout the lungs with generalized bronchial wall thickening. A 0.5 cm nodule is seen in the right upper lobe (image 59 series 2). Dependent atelectasis is seen bilaterally. No pneumothoraces are present. No central endobronchial obstructing lesions are identified. There are no pleural effusions. The osseous structures demonstrate degenerative changes without focal lytic or blastic lesions. CTA abdomen and pelvis: The liver, spleen, pancreas, adrenal glands, and kidneys have a normal appearance. There is no pathologically enlarged mesenteric or retroperitoneal adenopathy. The bowel loops are nondilated. The appendix is unremarkable. There is no free fluid or free air. The osseous structures are age-appropriate. Ureters and bladder are grossly normal. The uterus demonstrates heterogeneous enhancement with fluid in the endometrial canal. Follicles are seen in the ovaries bilaterally. A small amount of free fluid is seen in the pelvis. IMPRESSION: 1. No evidence of dissection or aneurysm in the thoracic and abdominal aorta. 2. 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 The brachiocephalic artery stenosis may be secondary to dissection. 3. Cyst with solid component in the left apex measuring 2.4 x 1.7 cm. Recommend short-term followup chest CT in 3-6 months. 4. Bronchial wall thickening with numerous centrilobular micronodules, likely related to smoking. No focal consolidations. Dictated by: Dictated on workstation # [id number]
[2018-09-02] MEDS ORDERED: DOPamine DRIP 250 ML IV SCH (13:30)
--- OUTSIDE RECORDS SUMMARY | 2018-09-02 14:15 | XMS REPORT | Continuity of Care Document ---
Author Organization Unknown Address Unknown Allergies Active Description Code Type Severity Reaction Onset Reported/Identified Relationship to Patient Clinical Status Yes No Known Drug Allergies [id number] Drug Allergy Unknown N/A 06/25/2018 Medications There is no data. 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 CYMRAES 54 mL/min/1.73m2 > OR=60 eGFR 62 mL/min/1.73m2 [...] 7-25 CREATININE 0.89 mg/dL 0.50-1.10 eGFR NON-AFR. CYMRAES 79 mL/min/1.73m2 > OR=60 eGFR 91 mL/min/1.73m2 [...] 9.8 fL 7.5-12.5 ABSOLUTE NEUTROPHILS 5382 cells/uL 2267-6329 ABSOLUTE LYMPHOCYTES 2772 cells/uL 850-3900 ABSOLUTE MONOCYTES [...] 7-25 CREATININE 0.99 mg/dL 0.50-1.10 eGFR NON-AFR. CYMRAES 69 mL/min/1.73m2 > OR=60 eGFR 80 mL/min/1.73m2 [...] 10.8 fL 7.5-12.5 ABSOLUTE NEUTROPHILS 3628 cells/uL 5542-3348 ABSOLUTE LYMPHOCYTES 2993 cells/uL 850-3900 ABSOLUTE MONOCYTES [...] 08/01/18 14:12 VITAMIN D,25-OH,TOTAL,IA 14 ng/mL 30-100 Complete blood count (CBC) with automated white blood cell (WBC) differential - 09/02/18 10:40 Blood leukocytes automated count (number/volume) 8.4 10*3/uL 4.3-11.0 Blood erythrocytes automated count (number/volume) 4.10 10*6/uL 4.35-5.85 Venous blood hemoglobin measurement (mass/volume) 13.1 g/dL 11.5-16.0 Blood hematocrit (volume fraction) 39 % 35-52 Automated erythrocyte mean corpuscular volume 94 [foz_us] 80-99 Automated erythrocyte mean corpuscular hemoglobin (mass per erythrocyte) 32 pg 25-34 Automated erythrocyte mean corpuscular hemoglobin concentration measurement (mass/volume) 34 g/dL 32-36 Automated erythrocyte distribution width ratio 12.6 % 10.0- 14.5 Automated blood platelet count (count/volume) 253 10*3/uL 130-400 Automated blood platelet mean volume measurement 9.8 [foz_us] 7.4-10.4 Automated blood neutrophils/100 leukocytes 58 % 42-75 Automated blood lymphocytes/100 leukocytes 33 % 12-44 Blood monocytes/100 leukocytes 6 % 0-12 Automated blood eosinophils/100 leukocytes 2 % 0-10 Automated blood basophils/100 leukocytes 1 % 0-10 Blood neutrophils automated count (number/volume) 4.9 10*3 1.8-7.8 Blood lymphocytes automated count (number/volume) 2.8 10*3 1.0-4.0 Blood monocytes automated count (number/volume) 0.5 10*3 0.0- 1.0 Automated eosinophil count 0.2 10*3/uL 0.0-0.3 Automated blood basophil count (count/volume) 0.1 10*3/uL 0.0-0.1 Serum or plasma choriogonadotropin ( test) detection - 09/02/18 10:40 Serum or plasma choriogonadotropin ( test) detection NEGATIVE NEGATIVE Whole blood basic metabolic panel - 09/02/18 10:40 Serum or plasma sodium measurement (moles/volume) 134 mmol/L 135-145 Serum or plasma potassium measurement (moles/volume) 4.1 mmol/L 3.6-5.0 Serum or plasma chloride measurement (moles/volume) 97 mmol/L 98-107 Carbon dioxide 23 mmol/L 21-32 Serum or plasma anion gap determination (moles/volume) 14 mmol/L 5-14 Serum or plasma urea nitrogen measurement (mass/volume) 10 mg/dL 7-18 Serum or plasma creatinine measurement (mass/volume) 0.85 mg/dL 0.60-1.30 Serum or plasma urea nitrogen/creatinine mass ratio 12 NRG Serum or plasma creatinine measurement with calculation of estimated glomerular filtration rate > NRG Serum or plasma glucose measurement (mass/volume) 104 mg/dL 70-105 Serum or plasma calcium measurement (mass/volume) 9.7 mg/dL 8.5-10.1 Complete urinalysis with reflex to culture - 09/02/18 11:43 Urine color determination YELLOW NRG Urine clarity determination CLEAR NRG Urine pH measurement by test strip 5.5 5-9 Specific gravity of urine by test strip 1.010 1.016-1.022 Urine protein assay by test strip, semi-quantitative NEGATIVE NEGATIVE Urine glucose detection by automated test strip NEGATIVE NEGATIVE Erythrocytes detection in urine sediment by light microscopy 1+ NEGATIVE Urine ketones detection by automated test strip NEGATIVE NEGATIVE Urine nitrite detection by test strip NEGATIVE NEGATIVE Urine total bilirubin detection by test strip NEGATIVE NEGATIVE Urine urobilinogen measurement by automated test strip (mass/volume) NORMAL NORMAL Urine leukocyte esterase detection by dipstick NEGATIVE NEGATIVE Automated urine sediment erythrocyte count by microscopy (number/high power field) [HPF] NRG Automated urine sediment leukocyte count by microscopy (number/high power field) NONE NRG Bacteria detection in urine sediment by light microscopy NEGATIVE NRG Squamous epithelial cells detection in urine sediment by light microscopy 12-02 NRG Crystals detection in urine sediment by light microscopy NONE NRG Casts detection in urine sediment by light microscopy NONE NRG Mucus detection in urine sediment by light microscopy NEGATIVE NRG Complete urinalysis with reflex to culture NO NRG Encounters ACCT No. Visit Date/Time Discharge Status Pt. Type Provider Facility Loc./Unit Complaint [id number] 08/01/2018 13:30:00 08/01/2018 23:59:59 [facility] Outpatient SERG DICKERSON [facility] [id number] 08/01/2018 13:30:00 Document Registration [id number] 06/22/2018 11:00:00 Document Registration [id number] 04/18/2018 13:45:00 Document Registration [id number] 01/06/2018 14:20:00 Document Registration [id number] 10/25/2017 18:40:00 Document Registration [id number] 06/25/2017 13:00:00 Document Registration [id number] 04/15/2017 14:00:00 Document Registration [id number] 12/29/2016 08:00:00 Document Registration [id number] 06/25/2018 08:51:00 06/25/2018 09:25:00 DIS Outpatient KIARRA MCGREGOR DO Via [facility] ER FS PT THINKS SHE HAS HEMORRHOIDS [id number] 09/02/2018 10:53:00 Document Registration
[2018-09-02] MEDS ORDERED: NS IV 1000 ML 1,000 ML ONE (14:24)
[2018-09-02] MEDS ORDERED: ONDANSETRON 4 MG/2 ML (SDV) Z0FRAN IVP ONE (14:30)
--- NOTE | 2018-09-02 16:08 | NUR ---
Follow-up appointment scheduled with Dr. Gamez at [facility] in [place] on Wednesday, September 05, 2018 @ 5163
[2018-09-02 16:57] VITALS: BP 118/62
== END 2018-09-02 17:00 | disposition home or self-care (01) ==
LOC: EDUNIT# 09:59 → ER FS 10:00 → UNDOADMIN 14:03 → ICU 14:03 → ER FS 17:00
DX: I95.9 Hypotension, unspecified (principal); M54.5 Low back pain; R00.1 Bradycardia, unspecified; E03.9 Hypothyroidism, unspecified; Z88.8 Allergy status to other drugs, medicaments and biological substances; Z88.5 Allergy status to narcotic agent; Z98.51 Tubal ligation status
CPT/HCPCS: 36415; 71275; 74174; 80048; 81000; 84443; 84703; 85025; 93005; 96374

== ENCOUNTER 2018-09-25 19:08 | Emergency (ER) | payer SELFPAY ==
[~2018-09-25] VITALS: Ht 160 cm; Wt 59.0 kg
--- NOTE | 2018-09-25 19:22 | ED Upper Extremity ---
General Stated Complaint: LEFT & RIGHT ARM PAIN Source: patient Exam Limitations: no limitations History of Present Illness Date Seen by Provider: Sep 25, 2018 Time Seen by Provider: 19:03 Initial Comments Patient presents to ER by private conveyance with chief complaint she's having some spasm-like shooting pains in her upper extremity is. In the middle of August she was seen in this ER and told that she had blockages in her arms and needed to see a surgeon about stents. She has not followed up with a surgeon at yet. She did follow up with her primary care doctor, Dr. Gamez. She's continued to have pain in her arms since and her roommate told her she needed to come out to the ER and have it checked out tonight. The patient has reduced her smoking from 1 pack down for about a quarter pack per day. Previous note from ER provider demonstrated that the patient was in the ER for back pain and spasms but noted to have bradycardia and hypotension. 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 Allergies and Home Medications Allergies Coded Allergies: acetaminophen (Verified Adverse Reaction, Unknown, 09/02/18) hydrocodone (Verified Adverse Reaction, Unknown, 09/02/18) sertraline (Verified Adverse Reaction, Unknown, 09/02/18) Home Medications Dibucaine 56.7 Gm Oint...g., 1 APPLIC RC Q6H PRN for pain Prescribed by: KIARRA MCGREGOR on 06/25/18917 Hydrocortisone Acetate 25 Mg Supp.rect, 25 MG RC BID Prescribed by: KIARRA MCGREGOR on 06/25/18915 Patient Home Medication List Home Medication List Reviewed: Yes Review of Systems Constitutional: No chills, No diaphoresis EENTM: No ear discharge, No ear pain Respiratory: No cough, No short of breath Cardiovascular: No chest pain, No edema Gastrointestinal: No abdominal pain, No nausea Genitourinary: No discharge, No dysuria Past Xdtcdzk-Ulyjgx-Jivwic Hx Patient Social History Alcohol Use: Denies Use Recreational Drug Use: No Drug of Choice: distant hx meth Smoking Status: Current Everyday Smoker Type Used: Cigarettes (0.25 ppd) 2nd Hand Smoke Exposure: No Recent Foreign Travel: No Contact w/Someone Who Travel: No Recent Hopitalizations: No Seasonal Allergies Seasonal Allergies: No Past Medical History Surgeries: Yes Gallbladder, Tonsillectomy, Tubal Ligation Respiratory: No Cardiac: No Neurological: No 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 oz. 61.894571hg; BMI Method:Stated General Appearance: WD/WN, no apparent distress HEENT: PERRL/EOMI, pharynx normal Neck: full range of motion, supple, normal inspection, tender lateral (bilateral paraspinous muscles) Cardiovascular: normal peripheral pulses, regular rate, rhythm, no edema, other (radial pulses 1 out of 4 bilateral symmetric palpable) Respiratory: lungs clear, normal breath sounds, no respiratory distress, no accessory muscle use Elbow/Forearm: normal inspection, no evidence of injury, normal ROM, soft tissue tenderness (tenderness to 10 else tap bilaterally over the ulnar nerve) Wrist: Yes normal inspection, Yes non-tender, Yes no evidence of injury, Yes normal ROM Hand: normal inspection, non-tender, Bilateral Neurologic/Tendon: normal sensation, normal motor functions, normal tendon functions, responds to pain Neurologic/Psychiatric: no motor/sensory deficits, alert Skin: normal color, warm/dry Progress/Results/Core Measures Progress Progress Note : Time: 19:40 Progress Note Patient says she is here for pain in her arms and it is associated with the tenderness in her neck and re-created with Tinel's tap. I suspect cervical radiculopathy could be the source of her pain. She doesn't have any swelling in her hands to suggest that she has venous collapse. She has pulses in all 4 extremities. She doesn't have any personal history of coronary disease but she does have plenty of risk factors so were going to cautiously use steroids and NSAIDs for one week with follow-up in primary care's office. She should also consider chiropractic and/or physical therapy. We've encouraged her to continue working on getting in with a vascular surgeon. Departure Impression Primary Impression: Cervical radiculopathy Additional Impression: Upper extremity pain, posterior Qualified Codes: M79.603 - Pain in arm, unspecified Disposition: 01 HOME, SELF-CARE Condition: Stable Departure-Patient Inst. Decision time for Depature: 19:43 Referrals: SERG GAMEZ MD (PCP/Family) Primary Care Physician Patient Instructions: Radiculopathy (DC) Add. Discharge Instructions: I suspect that part of the reason you having pain in your arms is from pinched nerves in your neck. Topical creams and heating pads for your neck and shoulders. Tylenol 1000 mg every 8 hours as needed for pain. Take the naproxen 1 tablet twice daily for the next week. Take the prednisone one tablet twice daily for 5 days. Follow-up in one to 2 weeks with primary care for reevaluation. If you're pain becomes intractable or you start having swelling, increasing weakness or you are constantly dropping things with your upper extremities then you need to follow-up sooner. Continue to work on quitting smoking. Plan to follow up at with the vascular surgeon. Scripts Prednisone (Prednisone) 20 Mg Tab 20 MG PO BID for 5 Days, #10 TAB 0 Refills Prov: BRANDON NOLEN 09/25/18 Naproxen (Naprosyn) 500 Mg Tablet 500 MG PO BID, #14 TAB 0 Refills Prov: BRANDON NOLEN 09/25/18 BRANDON NOLEN Sep 25, 2018 19:22
[2018-09-25] MEDS ORDERED: PRD20T PO (19:45)
[2018-09-25] MEDS ORDERED: NAPR-1071 PO (19:45)
[2018-09-25] MEDS ORDERED: KETOROLAC 60 MG/2 ML VIAL IM ONE (20:00)
[2018-09-25 20:12] VITALS: BP 151/66
== END 2018-09-25 20:14 | disposition home or self-care (01) ==
LOC: EDUNIT# 19:08 → ER FS 19:10
DX: M54.12 Radiculopathy, cervical region (principal); M79.602 Pain in left arm; M79.601 Pain in right arm; E03.9 Hypothyroidism, unspecified; F17.210 Nicotine dependence, cigarettes, uncomplicated; Z88.6 Allergy status to analgesic agent; Z88.5 Allergy status to narcotic agent; Z88.8 Allergy status to other drugs, medicaments and biological substances; Z90.89 Acquired absence of other organs; Z98.51 Tubal ligation status
CPT/HCPCS: 99284

== ENCOUNTER 2018-10-30 10:07 | Emergency (ER) | payer SELFPAY, OTHER | END 2018-10-30 12:30 | disposition home or self-care (01) | LOC: ER FS 10:07 ==

== ENCOUNTER 2019-03-31 15:27 | Emergency (ER) | payer SELFPAY ==
[~2019-03-31] VITALS: Ht 160 cm; Wt 65.7 kg
[~2019-03-31 15:27] MED LIST changes: +METO-310 PO; +NAPR-1071 PO; +PRD20T PO
--- NOTE | 2019-03-31 16:57 | Diagnostic Imaging Report ---
INDICATION: Cough and congestion COMPARISON: None FINDINGS: Frontal and lateral views of the chest demonstrate normal heart size and pulmonary vascularity. The lungs are clear. There are no signs of infiltrate, pleural effusions or pneumothoraces. The visualized osseous structures show no acute abnormalities. IMPRESSION: 1. No acute process. No signs of infiltrates, effusions or pneumothoraces. Dictated by: Dictated on workstation # [id number]
--- NOTE | 2019-03-31 17:42 | ED Cough/URI ---
General Chief Complaint: Cough/Cold/Flu Symptoms Stated Complaint: POSS BRONCHITIS Nursing Triage Note: has been feeling sick with cough/congestion/ fever for three days. Is worried she has bronchitis. Sepsis Screen: No Definite Risk History of Present Illness Date Seen by Provider: Mar 31, 2019 Time Seen by Provider: 15:36 Initial Comments The patient is a 43-year-old female with a history of hypertension and peripheral vascular disease as well as tobacco abuse. She presents with concern for acute onset of upper respiratory congestion, rhinorrhea, dry cough, mild sore throat, body aches, fatigue and malaise over the past 3-4 days. No associated fevers, vomiting, difficulty breathing, diarrhea. Patient is alert and pleasantly and appropriately interactive and in no acute distress with appropriate vital signs upon initial evaluation here in the emergency department. Allergies and Home Medications Allergies Coded Allergies: acetaminophen (Verified Adverse Reaction, Unknown, 09/02/18) hydrocodone (Verified Adverse Reaction, Unknown, 09/02/18) sertraline (Verified Adverse Reaction, Unknown, 09/02/18) Home Medications Dibucaine 56.7 Gm Oint...g., 1 APPLIC RC Q6H PRN for pain Prescribed by: KIARRA MCGREGOR on 06/25/18917 Hydrocortisone Acetate 25 Mg Supp.rect, 25 MG RC BID Prescribed by: KIARRA MCGREGOR on 06/25/18 09 Metoclopramide HCl 10 Mg Tablet, 10 MG PO TID Prescribed by: HERNÁN WRIGHT on 10/30/18 115 Naproxen 500 Mg Tablet, 500 MG PO BID Prescribed by: BRANDON NOLEN on 09/25/181944 Prednisone 20 Mg Tab, 20 MG PO BID Prescribed by: BRANDON NOLEN on 09/25/181944 Patient Home Medication List Home Medication List Reviewed: Yes Review of Systems Review of Systems Constitutional: see HPI All Other Systems Reviewed Negative Unless Noted: Yes (Negative excepted noted.) Past Iijsabo-Stxafx-Qfchrn Hx Past Med/Social Hx: Reviewed Nursing Past Med/Soc Hx Patient Social History Drug of Choice: distant hx meth Type Used: Cigarettes Former Smoker, Quit: Oct 18, 2018 2nd Hand Smoke Exposure: No Recent Foreign Travel: No Contact w/Someone Who Travel: No Recent Infectious Disease Expo: No Recent Hopitalizations: No Seasonal Allergies Seasonal Allergies: No Past Medical History Surgeries: Yes (bracheocephalic stents bilaterally) Gallbladder, Tonsillectomy, Tubal Ligation Respiratory: No Cardiac: Yes High Cholesterol, Hypertension 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 oz. 58.385586as; 25.00 BMI Method:Stated General Appearance: no apparent distress This is a middle-age female appearing nontoxic and in no acute distress. Head is normal cephalic and atraumatic. Neck is supple and nontender. Oropharynx is moist. Lungs are clear to auscultation at all stations. There is a normal S1 and S2 without rubs or gallops and capillary refill is appropriate, l ess than 2 seconds globally. Abdomen is soft, nontender nondistended. Skin is warm and dry without cyanosis, clubbing or edema. Psychiatrically, the patient given straights appropriate mood and affect and is alert. Progress/Results/Core Measures Suspected Sepsis Recent Fever Within 48 Hours: No Infection Criteria Present: Suspected New Infection New/Unexplained Altered Menta: No Sepsis Screen: No Definite Risk SIRS Temperature: Pulse: 87 Respiratory Rate: 20 Blood Pressure 122 /81 Mean: 95 Results/Orders Micro Results Microbiology 03/31/19 Influenza Types A,B Antigen (HIRA) - Final, Complete My Orders Orders - TOLU MCKEON MD Influenza A And B Antigens (03/31/19 16:19) Chest Pa/Lat (2 View) (03/31/19 16:20) Vital Signs/I&O 03/31/19 17:30 Temp 37.0 Pulse 87 Resp 20 B/P (MAP) 122/81 (95) Pulse Ox 97 Capillary Refill : Less Than 3 Seconds Blood Pressure Mean: 95 Progress Note : Time: 17:38 Progress Note Well-appearing 43-year-old female positive for influenza A, outside of the treatment window for Tamiflu. We'll treat with ibuprofen and Tylenol and discharge with instructions to use atfb-vqo-[id number] cough and cold medication as needed, to rest and hydrate and to return to the emergency department right away if symptoms worsen or if other new symptoms of concern develop. All questions are answered. Departure Impression Primary Impression: Influenza A Disposition: 01 HOME, SELF-CARE Condition: Improved Departure-Patient Inst. Referrals: SERG DICKERSON MD (PCP/Family) Primary Care Physician Add. Discharge Instructions: Follow-up with your primary care doctor immediately after the weekend as discussed. You may take [id number] cough and cold medicationI recommend Coricidin HBP which you can get at any pharmacy. Drink plenty of fluids and get plenty of rest. I have written UL work note. Return to the emergency department right away with worsening symptoms or other new concerns. Work/School Note: Family Work Note Patient Received Medical Care In the Emerg ency Department On: Mar 31, 2019 Patient Will Be Able to Return to Work/School On: Apr 04, 2019 Patient Restrictions: NONE TOLU MCKEON MD Mar 31, 2019 17:42
[2019-03-31] MEDS ORDERED: IBUPROFEN 800 MG (MOTRIN) TAB PO ONE (17:45)
[2019-03-31 18:03] VITALS: BP 139/72
== END 2019-03-31 18:02 | disposition home or self-care (01) ==
LOC: EDUNIT# 15:27 → ER FS 15:29
DX: J10.1 Influenza due to other identified influenza virus with other respiratory manifestations (principal); Z88.6 Allergy status to analgesic agent; Z88.5 Allergy status to narcotic agent; Z88.8 Allergy status to other drugs, medicaments and biological substances; Z79.52 Long term (current) use of systemic steroids; Z87.891 Personal history of nicotine dependence
CPT/HCPCS: 71046; 87804

== ENCOUNTER 2019-07-13 16:27 | Emergency (ER) | payer BC, OTHER ==
[~2019-07-13] VITALS: Ht 160 cm; Wt 63.6 kg
[2019-07-13 16:35] VITALS: BP 109/77
[2019-07-13] MEDS ORDERED: KETOROLAC 60 MG/2 ML VIAL IM ONE (16:45)
[2019-07-13] MEDS ORDERED: ORPHENADRINE 60 MG/2 ML (NORFLEX) AMP IM ONE (16:45)
--- NOTE | 2019-07-13 16:51 | ED Abdominal Pain ---
General Stated Complaint: BACK PAIN Source of Information: Patient History of Present Illness Date Seen by Provider: Jul 13, 2019 Time Seen by Provider: 16:20 Initial Comments Patient is a 43-year-old female who presents with acute onset low back pain this morning when reaching over to warp picker an item off her bedroom nightstand. Pain radiates both hips steering above both knees. Pain is worse with trying rotation and movement. It is currently rated 10 out of 10 and is prescribed as sharp. Patient is unable to find position of comfort. No loss of bowel or bladder function, no extremity weakness or loss of sensation. No saddle anesthesia. Timing/Duration: 4-6 Hours Severity/Quality: Severe Location: Other Radiation: Other (above the knees) Activities at Onset: Other (bending) Modifying Factors: Improves With Other (rest) Associated Symptoms: Back Pain Allergies and Home Medications Allergies Coded Allergies: acetaminophen (Verified Adverse Reaction, Unknown, 09/02/18) hydrocodone (Verified Adverse Reaction, Unknown, 09/02/18) sertraline (Verified Adverse Reaction, Unknown, 09/02/18) Home Medications Dibucaine 56.7 Gm Oint...g., 1 APPLIC RC Q6H PRN for pain Prescribed by: KIARRA MCGREGOR on 06/25/18 09 Hydrocortisone Acetate 25 Mg Supp.rect, 25 MG RC BID Prescribed by: KIARRA MCGREGOR on 06/25/18 09 Metoclopramide HCl 10 Mg Tablet, 10 MG PO TID Prescribed by: HERNÁN WRIGHT on 10/30/18 115 Naproxen 500 Mg Tablet, 500 MG PO BID Prescribed by: BRANDON NOLEN on 09/25/181944 Prednisone 20 Mg Tab, 20 MG PO BID Prescribed by: BRANDON NOLEN on 09/25/181944 Patient Home Medication List Home Medication List Reviewed: Yes Review of Systems Review of Systems Constitutional: see HPI EENTM: See HPI Respiratory: See HPI Cardiovascular: See HPI Genitourinary: See HPI Musculoskeletal: see HPI Skin: see HPI Psychiatric/Neurological: See HPI Endocrine: See HPI Hematologic/Lymphatic: See HPI All Other Systems Reviewed Negative Unless Noted: Yes Past Tktaala-Gloozh-Qjemcm Hx Past Med/Social Hx: Reviewed Nursing Past Med/Soc Hx Patient Social History Drug of Choice: distant hx meth Type Used: Cigarettes Former Smoker, Quit: Oct 18, 2018 2nd Hand Smoke Exposure: Yes Recent Foreign Travel: No Contact w/Someone Who Travel: No Recent Hopitalizations: No Seasonal Allergies Seasonal Allergies: No Past Medical History Surgeries: Yes (bracheocephalic stents bilaterally) Gallbladder, Tonsillectomy, Tubal Ligation Respiratory: No Cardiac: Yes High Cholesterol, Hypertension 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 oz. 58.643342ol; 25.00 BMI Method:Stated General Appearance: moderate distress HEENT: PERRL/EOMI, normal ENT inspection Neck: non-tender, full range of motion, supple Respiratory: chest non-tender, lungs clear Cardiovascular: normal peripheral pulses, regular rate, rhythm Gastrointestinal: non tender, soft Extremities: normal range of motion, non-tender Back: no CVA tenderness, no vertebral tenderness, other (diffuse lower paravertebral muscle pain/spasm.) Neurologic/Psychiatric: alert, oriented x 3, abnormal gait; No motor weakness Skin: normal color, warm/dry Focused Exam Sepsis Stage: Ruled Out Progress/Results/Core Measures Results/Orders My Orders Orders - EVANGELINA WARREN DO Ketorolac Injection (Toradol Injection) (07/13/19 16:45) Orphenadrine Injection (Norflex Injectio (07/13/19 16:45) Departure Communication (Admissions) Reproducible paravetebral back pain with particular symptoms. No neurologic deficits. Symptoms improved with treatment. Recommend supportive care, watchful waiting and PCP follow-up. Impression Primary Impression: Lumbar radiculopathy, acute Disposition: 01 HOME, SELF-CARE Condition: Stable/Unchanged Departure-Patient Inst. Decision time for Depature: 16:50 Referrals: SERG DICKERSON MD (PCP/Family) Primary Care Physician Patient Instructions: Radiculopathy (DC) Add. Discharge Instructions: Please limit lifting and strenuous physical activity. Take ibuprofen for pain and newly prescribed pain medications as directed. Follow-up with your PCP in 2- 3 days for reevaluation. Return to the ED if new or worsening symptoms Scripts Tramadol HCl (Tramadol HCl) 50 Mg Tablet 50 MG PO Q6H PRN for PAIN for 3 Days, #30 TAB 0 Refills Prov: EVANGELINA WARREN DO 07/13/19 Cyclobenzaprine HCl (Cyclobenzaprine HCl) 10 Mg Tablet 10 MG PO Q8H, #30 TAB Prov: EVANGELINA WARREN DO 07/13/19 EVANGELINA WARREN DO Jul 13, 2019 16:51
[2019-07-13] MEDS ORDERED: CYCL10TA9 PO (16:52)
[2019-07-13] MEDS ORDERED: TRM50T PO (16:52)
--- OUTSIDE RECORDS SUMMARY | 2019-07-13 20:01 | XMS REPORT | Continuity of Care Document ---
Author Organization Unknown Address Unknown Phone Unavailable Allergies Active Description Code Type Severity Reaction Onset Reported/Identified Relationship to Patient Clinical Status Yes No Known Drug Allergies [id number] Drug Allergy Unknown N/A 06/25/2018 Yes acetaminophen [id number] Oneil g Allergy Unknown N/A 09/02/2018 Yes hydrocodone [id number] Drug Aller gy Unknown N/A 09/02/2018 Yes sertraline [id number] Drug Allerg y Unknown N/A 09/02/2018 Medications There is no data. 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 08/02/2018 KIARRA MCGREGOR DO, Ot K62.89 OTHER SPECIFIED DISEASES OF ANUS AND REC 08/02/2018 KIARRA MCGREGOR DO, Ot K64.5 PERIANAL VENOUS THROMBOSIS 08/02/2018 KIARRA MCGREGOR DO, Ot 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 09/02/2018 EVANGELINA SANCHEZ DO, Ot E03.9 HYPOTHYROIDISM, UNSPECIFIED 09/02/2018 EVANGELINA SANCHEZ DO, Ot I95.9 HYPOTENSION, UNSPECIFIED 09/02/2018 EVANGELINA SANCHEZ DO, Ot M54.5 LOW BACK PAIN 09/02/2018 EVANGELINA SANCHEZ DO, Ot R00.1 BRADYCARDIA, UNSPECIFIED 09/02/2018 EVANGELINA SANCHEZ DO Ot Z88.5 ALLERGY STATUS TO NARCOTIC AGENT STATUS 09/02/2018 SANCHEZ DO, EVANGELINA Ot Z88.8 ALLERGY STATUS TO OTH DRUG/MEDS/BIOL SUB 09/02/2018 SANCHEZ DO, EVANGELINA Ot Z98.51 TUBAL LIGATION STATUS 09/07/2018 SANCHEZ DO, EVANGELINA Ot E03.9 HYPOTHYROIDISM, UNSPECIFIED 09/07/2018 SANCHEZ DO, EVANGELINA Ot I95.9 HYPOTENSION, UNSPECIFIED 09/07/2018 SANCHEZ DO, EVANGELINA Ot M54.5 LOW BACK PAIN 09/07/2018 SANCHEZ DO, EVANGELINA Ot R00.1 BRADYCARDIA, UNSPECIFIED 09/07/2018 SANCHEZ DO, EVANGELINA Ot Z88.5 ALLERGY STATUS TO NARCOTIC AGENT STATUS 09/07/2018 SANCHEZ DO, EVANGELINA Ot Z88.8 ALLERGY STATUS TO OTH DRUG/MEDS/BIOL SUB 09/07/2018 SANCHEZ DO, EVANGELINA Ot Z98.51 TUBAL LIGATION STATUS 09/25/2018 CALLUM CARVAJAL, BRANDON Anglin Ot E03. 9 HYPOTHYROIDISM, UNSPECIFIED 09/25/2018 CALLUM CARVAJAL, BRANDON Anglin Ot F17.210 NICOTINE DEPENDENCE, CIGARETTES, UNCOMPL 09/25/2018 CALLUM CARVAJAL, BRANDON Anglin Ot M54. 12 RADICULOPATHY, CERVICAL REGION 09/25/2018 BRANDON NOLEN MD Ot M79.601 PAIN IN RIGHT ARM 09/25/2018 BRANDON NOLEN MD Ot M79.602 PAIN IN LEFT ARM 09/25/2018 BRANDON NOLEN MD Ot Z88. 5 ALLERGY STATUS TO NARCOTIC AGENT STATUS 09/25/2018 BRANDON NOLEN MD Ot Z88. 6 ALLERGY STATUS TO ANALGESIC AGENT STATUS 09/25/2018 BRANDON NOLEN MD Ot Z88. 8 ALLERGY STATUS TO OTH DRUG/MEDS/BIOL SUB 09/25/2018 BRANDON NOLEN MD Ot Z90. 89 ACQUIRED ABSENCE OF OTHER ORGANS 09/25/2018 CALLUM CARVAJAL, BRANDON Anglin Ot Z98. 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 10/30/2018 HERNÁN WRIGHT DO Ot Z88 .5 ALLERGY STATUS TO NARCOTIC AGENT STATUS 10/30/2018 HERNÁN WRIGHT DO Ot Z88 .8 ALLERGY STATUS TO OTH DRUG/MEDS/BIOL SUB 10/30/2018 HERNÁN WRIGHT DO Ot Z90.89 ACQUIRED ABSENCE OF OTHER ORGANS 10/30/2018 HERNÁN WRIGHT DO Ot Z98.51 TUBAL LIGATION STATUS 11/01/2018 HERNÁN WRIGHT DO Ot E03 .9 HYPOTHYROIDISM, UNSPECIFIED 11/01/2018 HERNÁN WRIGHT DO L Ot K52 .9 NONINFECTIVE GASTROENTERITIS AND COLITIS 11/01/2018 HERNÁN WRIGHT DO L Ot R11.10 VOMITING, UNSPECIFIED 11/01/2018 HERNÁN WRIGHT DO Ot 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 1 FLU DUE TO OTH IDENT INFLUENZA VIRUS W O 04/04/2019 TOLU MCKEON MD, Ot R05 COUGH 04/04/2019 TOLU MCKEON MD, Ot Z79. 52 FDC (CURRENT) USE OF SYSTEMIC STER 04/04/2019 TOLU MCKEON MD Ot Z87.891 PERSONAL HISTORY OF NICOTINE DEPENDENCE 04/04/2019 TOLU MCKEON MD, Ot Z88. 5 ALLERGY STATUS TO NARCOTIC AGENT STATUS 04/04/2019 TOLU MCKEON MD, Ot Z88. 6 ALLERGY STATUS TO ANALGESIC AGENT STATUS 04/04/2019 TOLU MCKEON MD, Ot Z88. 8 ALLERGY STATUS TO OTH DRUG/MEDS/BIOL SUB Procedures There is no data. Results Test Result Range TISSUE, 2 SPECIMENS - 12/29/16 10:59 A SOURCE NRG A GROSS DESCRIPTION NRG A DIAGNOSIS NRG A COMMENT [facility] TSH - 04/15/17 14:45 TSH 89.97 mIU/L NRG SUREPATH PAP AND HPV mRNA E6/E7 - 13:36 CLINICAL INFORMATION: NRG LMP: 06/08/17 NRG PREV. PAP: 1993 NRG PREV. 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 [facility] 54 mL/min/1.73m2 > OR = 60 eGFR 62 mL/min/1.73m2 > OR = 60 BUN/CREATININE RATIO 11 (calc) 6-22 SODIUM 137 mmol/L 135-146 POTASSIUM 4.1 mmol/L 3.5-5.3 CHLORIDE 102 mmol/L 98-110 CARBON DIOXIDE 28 mmol/L 20-32 CALCIUM 10.0 mg/dL 8.6-10.2 PROTEIN, TOTAL 7.4 g/dL 6.1-8.1 ALBUMIN 4.5 g/dL 3.6-5.1 GLOBULIN 2.9 g/dL (calc) 1.9-3.7 ALBUMIN/GLOBULIN RATIO 1.6 (calc) 1.0-2. 5 BILIRUBIN, TOTAL 0.4 mg/dL 0.2-1.2 ALKALINE PHOSPHATASE [...] ESTERASE NEGATIVE NEGATIVE WBC 0-5 /HPF < OR = 5 RBC 3-10 /HPF < OR = 2 SQUAMOUS EPITHELIAL CELLS 10-20 /HPF < O R = 5 BACTERIA FEW /HPF NONE SEEN HYALINE CAST [...] 7-25 CREATININE 0.89 mg/dL 0.50-1.10 eGFR NON-AFR. [facility] 79 mL/min/1.73m2 > OR = 60 eGFR 91 mL/min/1.73m2 > OR = 60 BUN/CREATININE RATIO NOT APPLICABLE (calc) 6-22 SODIUM 139 mmol/L 135-146 POTASSIUM 4.7 mmol/L 3.5-5.3 CHLORIDE 105 mmol/L 98-110 CARBON DIOXIDE 25 mmol/L 20-32 CALCIUM 9.4 mg/dL 8.6-10.2 PROTEIN, TOTAL 6.6 g/dL 6.1-8.1 ALBUMIN 4.0 g/dL 3.6-5.1 GLOBULIN 2.6 g/dL (calc) 1.9-3.7 ALBUMIN/GLOBULIN RATIO 1.5 (calc) 1.0-2. 5 BILIRUBIN, TOTAL 0.3 mg/dL 0.2-1.2 ALKALINE PHOSPHATASE 71 U/L 33-115 AST 14 U/L 10-30 ALT 7 U/L 6-29 CBC - 04/18/18 14:38 WHITE BLOOD CELL COUNT 9.0 Thousand/uL 3 .8-10.8 RED BLOOD CELL COUNT 4.02 Million/uL 3.8 0-5.10 HEMOGLOBIN 12.8 g/dL 11.7-15.5 HEMATOCRIT 39.5 % 35.0-45.0 MCV 98.3 fL 80.0-100.0 MCH 31.8 pg 27.0-33.0 MCHC 32.4 g/dL 32.0-36.0 RDW 11.7 % 11.0-15.0 PLATELET COUNT 271 Thousand/uL 140-400 MPV 9.8 fL 7.5-12.5 ABSOLUTE NEUTROPHILS 5382 cells/uL 1500- 7800 ABSOLUTE LYMPHOCYTES 2772 cells/uL 850-3 900 ABSOLUTE MONOCYTES 621 cells/uL 200-950 ABSOLUTE EOSINOPHILS [...] 7-25 CREATININE 0.99 mg/dL 0.50-1.10 eGFR NON-AFR. [facility] 69 mL/min/1.73m2 > OR = 60 eGFR 80 mL/min/1.73m2 > OR = 60 BUN/CREATININE RATIO NOT APPLICABLE (calc) 6-22 SODIUM 141 mmol/L 135-146 POTASSIUM 4.1 mmol/L 3.5-5.3 CHLORIDE 107 mmol/L 98-110 CARBON DIOXIDE 25 mmol/L 20-32 CALCIUM 10.4 mg/dL 8.6-10.2 PROTEIN, TOTAL 6.9 g/dL 6.1-8.1 ALBUMIN 4.0 g/dL 3.6-5.1 GLOBULIN 2.9 g/dL (calc) 1.9-3.7 ALBUMIN/GLOBULIN RATIO 1.4 (calc) 1.0-2. 5 BILIRUBIN, TOTAL 0.4 mg/dL 0.2-1.2 ALKALINE PHOSPHATASE 79 U/L 33-115 AST 13 U/L 10-30 ALT 6 U/L 6-29 CBC - 06/22/18 11:30 WHITE BLOOD CELL COUNT 7.3 Thousand/uL 3 .8-10.8 RED BLOOD CELL COUNT 4.33 Million/uL 3.8 0-5.10 HEMOGLOBIN 13.3 g/dL 11.7-15.5 HEMATOCRIT 40.9 % 35.0-45.0 MCV 94.5 fL 80.0-100.0 MCH 30.7 pg 27.0-33.0 MCHC 32.5 g/dL 32.0-36.0 RDW 12.1 % 11.0-15.0 PLATELET COUNT 258 Thousand/uL 140-400 MPV 10.8 fL 7.5-12.5 ABSOLUTE NEUTROPHILS 3628 cells/uL 1500- 7800 ABSOLUTE LYMPHOCYTES 2993 cells/uL 850-3 900 ABSOLUTE MONOCYTES 496 cells/uL 200-950 ABSOLUTE EOSINOPHILS 124 cells/uL 15-500 ABSOLUTE BASOPHILS 58 cells/uL 0-200 NEUTROPHILS 49.7 % NRG LYMPHOCYTES 41.0 % NRG MONOCYTES 6.8 % NRG EOSINOPHILS 1.7 % NRG BASOPHILS 0.8 % NRG VITAMIN D, 25-H - 06/22/18 11:30 VITAMIN D,25-OH,TOTAL,IA 8 ng/mL 30-10 0 VITAMIN B12/FOLATE, SERUM PANEL - 11:30 VITAMIN B12 428 pg/mL 200-1100 FOLATE, SERUM 9.4 ng/mL NRG TSH w/ FREE T4 - 08/01/18 14:12 TSH 1.99 mIU/L NRG T4, FREE 1.4 ng/dL 0.8-1.8 VITAMIN D, 25-H - 08/01/18 14:12 VITAMIN D,25-OH,TOTAL,IA 14 ng/mL 30-10 0 Complete blood count (CBC) with automate d white blood cell (WBC) differential - 09/02/18 10:40 Blood leukocytes automated count (number/volume) 8.4 10*3/uL 4.3-11.0 Blood erythrocytes automated count (number/volume) 4.10 10*6/uL 4.35-5.85 Venous blood hemoglobin measurement (mass/volume) 13.1 g/dL 11.5-16.0 Blood hematocrit (volume fraction) 39 % 35-52 Automated erythrocyte mean corpuscular volume 94 [ foz_us] 80-99 Automated erythrocyte mean corpuscular h emoglobin (mass per erythrocyte) 32 pg 25-34 Automated erythrocyte mean corpuscular h emoglobin concentration measurement (mass/volume) 34 g/dL 32-36 Automated erythrocyte distribution width ratio 12. 6 % 10.0- 14.5 Automated blood platelet count [...] 10*3 1.0-4.0 Blood monocytes automated count (number/volume) 0. 5 10*3 0.0-1.0 Automated eosinophil count 0.2 10*3/uL 0 .0-0.3 Automated blood basophil count (count/volume) 0.1 10*3/uL 0.0-0.1 Serum or plasma choriogonadotropin (preg trisha test) detection - 09/02/18 10:40 Serum or plasma choriogonadotropin ( test) de tection NEGATIVE NEGATIVE Whole blood basic metabolic panel - 08/09 07/27 10:40 Serum or plasma sodium measurement (moles/volume) 134 mmol/L 135-145 Serum or plasma potassium measurement (moles/volume) 4.1 mmol/L 3.6-5.0 Serum or plasma chloride measurement (moles/volume) 97 mmol/L 98-107 Carbon dioxide 23 mmol/L 21-32 Serum or plasma anion gap determination (moles/volume) 14 mmol/L 5-14 Serum or plasma urea nitrogen measurement (mass/volume ) 10 mg/dL 7-18 Serum or plasma creatinine measurement (mass/volume) 0.85 mg/dL 0.60-1.30 Serum or plasma urea nitrogen/creatinine mass ratio 12 NRG Serum or plasma creatinine measurement w ith calculation of estimated glomerular filtration rate > NRG Serum or plasma glucose measurement (mass/volume) 104 mg/dL 70-105 Serum or plasma calcium measurement (mass/volume) 9.7 mg/dL 8.5-10.1 THYROID STIMULATING HORMONE - 09/02/18 1 0:57 THYROID STIMULATING HORMONE 0.89 u[iU]/mL 0.35-4.94 Complete urinalysis with reflex to cultu re - 09/02/18 11:43 Urine color determination YELLOW NRG Urine clarity determination CLEAR NR G Urine pH measurement by test strip 5.5 5-9 Specific gravity of urine by test strip 1.010 1.016-1.022 Urine protein assay by test strip, semi-quantitative NEGATIVE NEGATIVE Urine glucose detection by automated test strip NE GATIVE NEGATIVE Erythrocytes detection in urine sediment by light micr oscopy 1+ NEGATIVE Urine ketones detection by automated test strip NE GATIVE NEGATIVE Urine nitrite detection by test strip NEGATIVE NEGATIVE Urine total bilirubin detection by test strip NEGA TIVE NEGATIVE Urine urobilinogen measurement by automated test strip (mass/volume) NORMAL NORMAL Urine leukocyte esterase detection by dipstick NEG ATIVE NEGATIVE Automated urine sediment erythrocyte cou nt by microscopy (number/high power field) [HPF] NRG Automated urine sediment leukocyte count by microscopy (number/high power field) NONE NRG Bacteria detection in urine sediment by light microsco py NEGATIVE NRG Squamous epithelial cells detection in u rine sediment by light microscopy 10-25 NRG Crystals detection in urine sediment by light microsco py NONE NRG Casts detection in urine sediment by light microscopy NONE NRG Mucus detection in urine sediment by light microscopy NEGATIVE NRG Complete urinalysis with reflex to culture NO NRG Complete urinalysis with reflex to cultu re - 10/30/18 10:15 Urine color determination YELLOW NRG Urine clarity determination SLT CLOUDY NRG Urine pH measurement by test strip 6.0 5-9 Specific gravity of urine by test strip 1.025 1.016-1.022 Urine protein assay by test strip, semi-quantitative NEGATIVE NEGATIVE Urine glucose detection by automated test strip NE GATIVE NEGATIVE Erythrocytes detection in urine sediment by light micr oscopy 2+ NEGATIVE Urine ketones detection by automated test strip NE GATIVE NEGATIVE Urine nitrite detection by test strip NEGATIVE NEGATIVE Urine total bilirubin detection by test strip NEGA TIVE NEGATIVE Urine urobilinogen measurement by automated test strip (mass/volume) 1.0 mg/dL NORMAL Urine leukocyte esterase detection by dipstick NEG ATIVE NEGATIVE Automated urine sediment erythrocyte cou nt by microscopy (number/high power field) [HPF] NRG Automated urine sediment leukocyte count by microscopy (number/high power field) RARE NRG Bacteria detection in urine sediment by light microsco py TRACE NRG Squamous epithelial cells detection in u rine sediment by light microscopy 10-25 NRG Crystals detection in urine sediment by light microsco py NONE NRG Casts detection in urine sediment by light microscopy NONE NRG Mucus detection in urine sediment by light microscopy NONE NRG Complete urinalysis with reflex to culture NO NRG Blood CBC with ordered manual differenti al panel - 10/30/18 10:30 Blood leukocytes automated count (number/volume) 6.6 10*3/uL 4.3-11.0 Blood erythrocytes automated count (number/volume) 4.16 10*6/uL 4.35-5.85 Venous blood hemoglobin measurement (mass/volume) 13.4 g/dL 11.5-16.0 Blood hematocrit (volume fraction) 41 % 35-52 Automated erythrocyte mean corpuscular volume 99 [ foz_us] 80-99 Automated erythrocyte mean corpuscular h emoglobin (mass per erythrocyte) 32 pg 25-34 Automated erythrocyte mean corpuscular h emoglobin concentration measurement (mass/volume) 33 g/dL 32-36 Automated erythrocyte distribution width ratio 14. 0 % 10.0- 14.5 Automated blood platelet count (count/volume) 293 10*3/uL 130-400 Automated blood platelet mean volume measurement 9.2 [foz_us] 7.4-10.4 Automated blood neutrophils/100 leukocytes 59 % 42-75 Automated blood lymphocytes/100 leukocytes 31 % 12-44 Blood monocytes/100 leukocytes 7 % NRG Automated blood eosinophils/100 leukocytes 2 % 0-10 Automated blood basophils/100 leukocytes 0 % 0-10 Blood neutrophils automated count (number/volume) 3.9 10*3 1.8-7.8 Blood lymphocytes automated count (number/volume) 2.1 10*3 1.0-4.0 Blood monocytes automated count (number/volume) 0. 5 10*3 0.0-1.0 Automated eosinophil count 0.1 10*3/uL 0 .0-0.3 Automated blood basophil count (count/volume) 0.0 10*3/uL 0.0-0.1 Manual blood segmented neutrophils/100 leukocytes 54 % NRG Blood band neutrophils/100 leukocytes 4 % NRG Manual blood lymphocytes/100 leukocytes 33 % NRG Manual eosinophils/100 leukocytes in nose 1 % NRG Manual blood basophils/100 leukocytes 0 % NRG Manual blood metamyelocytes/100 leukocytes 1 % NRG Whole blood basic metabolic panel - 10/10 03/29 10:30 Serum or plasma sodium measurement (moles/volume) 138 mmol/L 135-145 Serum or plasma potassium measurement (moles/volume) 4.0 mmol/L 3.6-5.0 Serum or plasma chloride measurement (moles/volume) 105 mmol/L 98-107 Carbon dioxide 23 mmol/L 21-32 Serum or plasma anion gap determination (moles/volume) 10 mmol/L 5-14 Serum or plasma urea nitrogen measurement (mass/volume ) 12 mg/dL 7-18 Serum or plasma creatinine measurement (mass/volume) 1.06 mg/dL 0.60-1.30 Serum or plasma urea nitrogen/creatinine mass ratio 11 NRG Serum or plasma creatinine measurement w ith calculation of estimated glomerular filtration rate 56 NRG Serum or plasma glucose measurement (mass/volume) 99 mg/dL 70-105 Serum or plasma calcium measurement (mass/volume) 9.0 mg/dL 8.5-10.1 Serum or plasma troponin i.cardiac measu rement (mass/volume) - 10/30/18 10:30 Serum or plasma troponin i.cardiac measurement (mass/v olume) < ng/mL <0.30 TSH - 11/01/18 10:35 TSH >150.00 mIU/L NRG VITAMIN D, 25-H - 11/01/18 10:35 VITAMIN D,25-OH,TOTAL,IA 30 ng/mL 30-10 0 PDM - 09 PANEL (PROFILE 1) - 11/01/18 10 :35 Prescribed Drug 1 Alprazolam NRG Creatinine 27.6 mg/dL > or = 20.0 pH 7.2 4.5-9.0 Oxidant NEGATIVE mcg/mL <200 Amphetamines NEGATIVE ng/mL <500 medMATCH Amphetamines CONSISTENT NRG Benzodiazepines NEGATIVE ng/mL <100 medMATCH Benzodiazepines INCONSISTENT N RG Marijuana Metabolite POSITIVE ng/mL <20 Cocaine Metabolite NEGATIVE ng/mL <150 medMATCH Cocaine Metab CONSISTENT NRG Opiates NEGATIVE ng/mL <100 medMATCH Opiates CONSISTENT NRG Oxycodone NEGATIVE ng/mL <100 medMATCH Oxycodone CONSISTENT NRG COMMENT NRG Marijuana Metabolite 243 ng/mL <5 medMATCH Marijuana Metab INCONSISTENT N RG Barbiturates NEGATIVE ng/mL <300 medMATCH Barbiturates CONSISTENT NRG Methadone Metabolite NEGATIVE ng/mL <100 medMATCH Methadone Metab CONSISTENT NRG Phencyclidine NEGATIVE ng/mL <25 medMATCH Phencyclidine CONSISTENT NRG DIFFERENTIAL, MANUAL - 11/01/18 10:35 ABSOLUTE NEUTROPHILS 3809 cells/uL 1500- 7800 ABSOLUTE MONOCYTES 184 cells/uL 200-950 ABSOLUTE EOSINOPHILS 285 cells/uL 15-500 ABSOLUTE BASOPHILS 0 cells/uL 0-200 NEUTROPHILS 41.4 % NRG LYMPHOCYTES 41.4 % NRG MONOCYTES 2.0 % NRG EOSINOPHILS 3.1 % NRG BASOPHILS 0 % NRG ABSOLUTE BAND NEUTROPHILS 1113 cells/uL 0-750 ABSOLUTE LYMPHOCYTES 3809 cells/uL 850-3 900 BAND NEUTROPHILS 12.1 % NRG NOTE NRG Influenza virus A and B antigen detectio n - 03/31/19 16:15 FLU RESULT POSITIVE FOR INFLUENZA A ANT IGEN, NEG FOR B ANTIGEN, BY IA NRG CMP - 04/03/19 09:28 GLUCOSE 145 mg/dL 65-99 UREA NITROGEN (BUN) 8 mg/dL 7-25 CREATININE 1.31 mg/dL 0.50-1.10 eGFR NON-AFR. [facility] 49 mL/min/1.73m2 > OR = 60 eGFR 57 mL/min/1.73m2 > OR = 60 BUN/CREATININE RATIO 6 (calc) 6-22 SODIUM 136 mmol/L 135-146 POTASSIUM 4.0 mmol/L 3.5-5.3 CHLORIDE 102 mmol/L 98-110 CARBON DIOXIDE 27 mmol/L 20-32 CALCIUM 8.8 mg/dL 8.6-10.2 PROTEIN, TOTAL 6.8 g/dL 6.1-8.1 ALBUMIN 4.1 g/dL 3.6-5.1 GLOBULIN 2.7 g/dL (calc) 1.9-3.7 ALBUMIN/GLOBULIN RATIO 1.5 (calc) 1.0-2. 5 BILIRUBIN, TOTAL 0.4 mg/dL 0.2-1.2 ALKALINE PHOSPHATASE 67 U/L 31-125 AST 39 U/L 10-35 ALT 20 U/L 6-29 CBC - 04/03/19 09:28 WHITE BLOOD CELL COUNT 5.5 Thousand/uL 3 .8-10.8 RED BLOOD CELL COUNT 4.28 Million/uL 3.8 0-5.10 HEMOGLOBIN 14.4 g/dL 11.7-15.5 HEMATOCRIT 41.1 % 35.0-45.0 MCV 96.0 fL 80.0-100.0 MCH 33.6 pg 27.0-33.0 MCHC 35.0 g/dL 32.0-36.0 RDW 14.2 % 11.0-15.0 PLATELET COUNT 212 Thousand/uL 140-400 MPV 10.0 fL 7.5-12.5 ABSOLUTE NEUTROPHILS 1337 cells/uL 1500- 7800 ABSOLUTE MONOCYTES 160 cells/uL 200-950 ABSOLUTE EOSINOPHILS 55 cells/uL 15-500 ABSOLUTE BASOPHILS 55 cells/uL 0-200 NEUTROPHILS 24.3 % NRG LYMPHOCYTES 55.3 % NRG MONOCYTES 2.9 % NRG EOSINOPHILS 1.0 % NRG BASOPHILS 1.0 % NRG ABSOLUTE BAND NEUTROPHILS 798 cells/uL 0 -750 ABSOLUTE METAMYELOCYTES 55 cells/uL ABSOLUTE LYMPHOCYTES 3042 cells/uL 850-3 900 BAND NEUTROPHILS 14.5 % NRG METAMYELOCYTES 1.0 % NRG NOTE NRG TSH - 04/03/19 09:28 TSH >150.00 mIU/L NRG VITAMIN D, 25-H - 04/03/19 09:28 VITAMIN D,25-OH,TOTAL,IA 12 ng/mL 30-10 0 TSH - 05/04/19 09:10 TSH 21.14 mIU/L NRG TSH - 06/22/19 10:18 TSH 0.32 mIU/L NRG Encounters ACCT No. Visit Date/Time Discharge Status Pt. Type Provider Facility Loc./Unit Complaint [id number] 04/03/2019 14:15:00 04/03/2019 23:59:5 9 CLS Outpatient SERG DICKERSON [facility] [id number] 06/22/2019 10:15:00 Document Registration [id number] 05/04/2019 09:00:00 Document Registration [id number] 04/03/2019 14:15:00 Document Registration [id number] 11/01/2018 09:45:00 Document Registration [id number] 08/01/2018 13:30:00 Document Registration [id number] 06/22/2018 11:00:00 Document Registration [id number] 04/18/2018 13:45:00 Document Registration [id number] 01/06/2018 14:20:00 Document Registration [id number] 10/25/2017 18:40:00 Document Registration [id number] 06/25/2017 13:00:00 Document Registration [id number] 04/15/2017 14:00:00 Document Registration [id number] 12/29/2016 08:00:00 Document Registration [id number] 03/31/2019 15:29:00 18:02:00 DIS Outpatient LINDA CARVAJAL, TOLU Muñoz [facility] FS POSS BRONCHITIS [id number] 10/30/2018 10:07:00 12:30:00 DIS Emergency HERNÁN WRIGHT DO [facility] FS VOMITING [id number] 09/25/2018 19:10:00 20:14:00 DIS Emergency CALLUM CARVAJAL, BRANDON Anglin [facility] FS LEFT RIGHT ARM PAIN [id number] 09/02/2018 10:00:00 17:00:00 DIS Emergency EVANGELINA SANCHEZ DO [facility] FS HYPOTENSION BRADYCARD [place] [id number] 06/25/2018 08:51:00 09:25:00 DIS Emergency KIARRA MCGREGOR DO [facility] FS PT THINKS SHE HAS HEMOR RHOIDS
== END 2019-07-13 17:15 | disposition home or self-care (01) ==
LOC: EDUNIT# 16:27 → ER FS 16:29
DX: M54.16 Radiculopathy, lumbar region (principal); Z88.6 Allergy status to analgesic agent; Z88.5 Allergy status to narcotic agent; Z88.8 Allergy status to other drugs, medicaments and biological substances; Z79.52 Long term (current) use of systemic steroids; Z87.891 Personal history of nicotine dependence; Z77.22 Contact with and (suspected) exposure to environmental tobacco smoke (acute) (chronic); X50.1XXA Overexertion from prolonged static or awkward postures, initial encounter; Y92.003 Bedroom of unspecified non-institutional (private) residence as the place of occurrence of the external cause
CPT/HCPCS: 99284

== ENCOUNTER 2019-12-25 14:00 | Emergency (ER) | payer BC ==
[~2019-12-25] VITALS: Ht 160 cm; Wt 61.8 kg
[~2019-12-25 14:00] MED LIST changes: +CYCL10TA9 PO; +TRM50T PO
--- NOTE | 2019-12-25 14:17 | ED Cardiac General ---
History of Present Illness General Chief Complaint: Chest Pain Stated Complaint: CHEST PAIN Source: patient, RN/MD, RN notes reviewed Exam Limitations: no limitations History of Present Illness Date Seen by Provider: Dec 25, 2019 Time Seen by Provider: 14:05 Initial Comments This patient is a 44-year-old female presents to the emergency department with complaint of sharp chest pain with radiation down the left arm when ambulating. Patient states when she puts her arm in a certain position or stops walking around pain goes away. Patient denies any shortness of breath. Denies any cardiac type chest pain. Patient states his been intermittent for 4 days. Patient states he tried to call and see her PCP to get in for an appointment was advised come to the emergency department. We'll do medical evaluation treatment is needed Timing/Duration: intermittent, 3-4 days Severity: moderate Location: central Activities at Onset: activity Prior CP/Workup: cardiac cath NTG SL COPYWRITER: No ASA po COPYWRITER: No Associated Systoms: No Denies Symptoms; Chest Pain; No Cough, No Diaphoresis, No Fever/Chills, No Headaches, No Loss of Appetite, No Malaise, No Nausea/Vomiting, No Rash, No Seizure, No Shortness of Air, No Syncope, No Weakness, No Other Allergies and Home Medications Allergies Coded Allergies: acetaminophen (Verified Adverse Reaction, Unknown, 09/02/18) hydrocodone (Verified Adverse Reaction, Unknown, 09/02/18) sertraline (Verified Adverse Reaction, Unknown, 09/02/18) Home Medications Cyclobenzaprine HCl 10 Mg Tablet, 10 MG PO Q8H Prescribed by: EVANGELINA WARREN on 07/13/19 165 Dibucaine 56.7 Gm Oint...g., 1 APPLIC RC Q6H PRN for pain Prescribed by: KIARRA MCGREGOR on 06/25/18917 Hydrocortisone Acetate 25 Mg Supp.rect, 25 MG RC BID Prescribed by: KIARRA MCGREGOR on 06/25/18915 Metoclopramide HCl 10 Mg Tablet, 10 MG PO TID Prescribed by: HERNÁN WRIGHT on 10/30/18 115 Naproxen 500 Mg Tablet, 500 MG PO BID Prescribed by: BRANDON NOLEN on 09/25/181944 Prednisone 20 Mg Tab, 20 MG PO BID Prescribed by: BRANDON NOLEN on 09/25/181944 Tramadol HCl 50 Mg Tablet, 50 MG PO Q6H PRN for PAIN Prescribed by: EVANGELINA WARREN on 07/13/19 6905 Patient Home Medication List Home Medication List Reviewed: Yes Review of Systems Review of Systems Constitutional: No no symptoms reported, No see HPI, No chills, No diaphoresis, No dizziness, No fever, No malaise, No weakness, No weight gain, No weight loss, No other EENTM: No No Symptoms Reported, No See HPI, No Blurred Vision, No Double Vision, No Eye Pain, No Eye Tearing, No Ear Drainage, No Ear Pain, No Mouth Pain, No Mouth Swelling, No Nose Congestion, No Nose Pain, No Throat Pain, No Throat Swelling, No Other Respiratory: Denies No Symptoms Reported, Denies See HPI, Denies Cough, Denies Orthopnea, Denies Shortness of Air, Denies SOA With Exertion, Denies SOA at Rest, Denies Stridor, Denies Wheezing, Denies Other Cardiovascular: Denies No Symptoms Reported; See HPI, Chest Pain; Denies Edema, Denies Irregular Heart Rate, Denies Lightheadedness, Denies Palpitations, Denies Syncope, Denies Other Gastrointestinal: Denies No Symptoms Reported, Denies See HPI, Denies Abdomen Distended, Denies Abdominal Pain, Denies Blood Streaked Stools, Denies Constipated, Denies Diarrhea, Denies Difficulty Swallowing, Denies Nausea, Denies Poor Appetite, Denies Poor Fluid Intake, Denies Rectal Bleeding, Denies Vomiting, Denies Other Genitourinary: Denies No Symptoms Reported, Denies See HPI, Denies Burning, Denies Discharge, Denies Drainage, Denies Frequency, Denies Flank Pain, Denies Hematuria, Denies Incontinence, Denies Pain, Denies Urgency, Denies Other Musculoskeletal: No no symptoms reported, No see HPI, No back pain, No gout, No joint pain, No joint swelling, No muscle pain, No muscle stiffness, No muscle cramps, No muscle twitching, No muscle weakness, No neck pain, No other Skin: No no symptoms reported, No see HPI, No change in color, No change in hair/nails, No dryness, No hx of skin cancer, No lesions, No lumps, No pruritus, No rash, No other All Other Systems Reviewed Negative Unless Noted: Yes Past Stbsyfl-Ugumdk-Dkzpve Hx Patient Social History Alcohol Use: Denies Use Recreational Drug Use: No Drug of Choice: distant hx meth Smoking Status: Former Smoker Type Used: Cigarettes Former Smoker, Quit: Oct 18, 2018 2nd Hand Smoke Exposure: Yes Recent Foreign Travel: No Contact w/Someone Who Travel: No Recent Hopitalizations: No Physical Abuse: No Sexual Abuse: No Mistreated: No Fear: No Seasonal Allergies Seasonal Allergies: No Past Medical History Surgeries: Yes (bracheocephalic stents bilaterally) Gallbladder, Tonsillectomy, Tubal Ligation Respiratory: No Cardiac: Yes Coronary Artery Disease, High Cholesterol, Hypertension Neurological: No 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 oz. 58.190108jp; 24.00 BMI Method:Stated General Appearance: No Apparent Distress, WD/WN Respiratory: Chest Non Tender, Lungs Clear, Normal Breath Sounds, No Accessory Muscle Use, No Respiratory Distress Cardiovascular: Regular Rate, Rhythm, No Edema, No Gallop, No JVD, No Murmur, Normal Peripheral Pulses Gastrointestinal: Normal Bowel Sounds, No Organomegaly, No Pulsatile Mass, Non Tender Extremity: Normal Capillary Refill, Normal Inspection, Normal Range of Motion, Non Tender, No Calf Tenderness, No Pedal Edema Neurologic/Psychiatric: Alert, Oriented x3, No Motor/Sensory Deficits, Normal Mood/Affect Skin: Normal Color, Warm/Dry Progress/Results/Core Measures Results/Orders Lab Results Laboratory Tests Test 12/25/19 14:10 Range/Units White Blood Count 9.8 4.3-11.0 10^3/uL Red Blood Count 3.60 L 4.35-5.85 10^6/uL Hemoglobin 12.1 11.5-16.0 G/DL Hematocrit 36 35-52 % Mean Corpuscular Volume 99 80-99 FL Mean Corpuscular Hemoglobin 34 25-34 PG Mean Corpuscular Hemoglobin Concent 34 32-36 G/DL Red Cell Distribution Width 12.5 10.0-14.5 % Platelet Count 309 130-400 10^3/uL Mean Platelet Volume 9.0 7.4-10.4 FL Immature Granulocyte % (Auto) 0 % Neutrophils (%) (Auto) 54 42-75 % Lymphocytes (%) (Auto) 37 12-44 % Monocytes (%) (Auto) 7 0-12 % Eosinophils (%) (Auto) 1 0-10 % Basophils (%) (Auto) 1 0-10 % Neutrophils # (Auto) 5.3 1.8-7.8 X 10^3 Lymphocytes # (Auto) 3.7 1.0-4.0 X 10^3 Monocytes # (Auto) 0.7 0.0-1.0 X 10^3 Eosinophils # (Auto) 0.1 0.0-0.3 10^3/uL Basophils # (Auto) 0.1 0.0-0.1 10^3/uL Immature Granulocyte # (Auto) 0.0 0.0-0.1 10^3/uL D-Dimer 0.27 0.00-0.49 UG/ML Sodium Level 134 L 135-145 MMOL/L Potassium Level 4.1 3.6-5.0 MMOL/L Chloride Level 104 98-107 MMOL/L Carbon Dioxide Level 22 21-32 MMOL/L Anion Gap 8 5-14 MMOL/L Blood Urea Nitrogen 17 7-18 MG/DL Creatinine 0.97 0.60-1.30 MG/DL Estimat Glomerular Filtration Rate > 60 BUN/Creatinine Ratio 18 Glucose Level 96 70-105 MG/DL Calcium Level 9.1 8.5-10.1 MG/DL Corrected Calcium 8.9 8.5-10.1 MG/DL Total Bilirubin 0.2 0.1-1.0 MG/DL Aspartate Amino Transf (AST/SGOT) 14 5-34 U/L Alanine Aminotransferase (ALT/SGPT) 9 0-55 U/L Alkaline Phosphatase 76 40-136 U/L Troponin I < 0.30 <0.30 NG/ML Total Protein 6.9 6.4-8.2 GM/DL Albumin 4.2 3.2-4.5 GM/DL My Orders Orders - HERNÁN GUERRERO MD Ekg Tracing (12/25/19 14:09) Troponin I Fs (12/25/19 14:09) Chest 1 View Ap/Pa Only (12/25/19 14:09) Cbc With Automated Diff (12/25/19 14:09) Comprehensive Metabolic Panel (12/25/19 14:09) O2 (12/25/19 14:09) Monitor-Rhythm Ecg Trace Only (12/25/19 14:09) Ed Iv/Invasive Line Start (12/25/19 14:09) Fibrin Degradation Products (12/25/19 14:43) Vital Signs/I&O 12/25/19 14:00 Temp 36.4 Pulse 97 Resp 18 B/P (MAP) 122/80 (94) Pulse Ox 97 Progress Progress Note : Time: 15:21 Progress Note Negative evaluation in the emerge from for your findings. Stable. Negative troponin negative d-dimer. No specific symptoms of cardiac nature in the emergency department. Vital signs stable. Continue all medications. Follow-up through primary care physician and/or building coordinator as instructed return to the emergency department if symptoms failed to improve or worsen. Initial ECG Impression Date: Dec 25, 2019 Initial ECG Impression Time: 14:00 Initial ECG Rate: 89 Initial ECG Rhythm: Normal Sinus Initial ECG Intervals: Normal Initial ECG Impression: Nonspecific Changes Comment Sinus rhythm nonspecific EKG changes. Heart rate 89. Departure Impression Primary Impression: Atypical chest pain Additional Impression: Chest pain on exertion Disposition: 01 HOME, SELF-CARE Condition: Stable Departure-Patient Inst. Decision time for Depature: 15:23 Referrals: SERG DICKERSON MD (PCP/Family) Primary Care Physician Patient Instructions: Chest Pain (DC), Costochondritis (DC) Add. Discharge Instructions: Continue all medications. Follow-up through primary care physician and/or building coordinator as instructed return to the emergency department if symptoms failed to improve or worsen. All discharge instructions reviewed with patient and/or family. Voiced understanding. HERNÁN GUERRERO MD Dec 25, 2019 14:17
[2019-12-25 14:25] LABS: BASOPHILS % (AUTO) 1 % (0-10); EOSINOPHILS % (AUTO) 1 % (0-10); HEMATOCRIT 36 % (35-52); HEMOGLOBIN 12.1 G/DL (11.5-16.0); LYMPHOCYTES % (AUTO) 37 % (12-44); MEAN CORPUSCULAR HEMOGLOBIN 34 PG (25-34); MEAN CORPUSCULAR HGB CONC 34 G/DL (32-36); MEAN CORPUSCULAR VOLUME 99 FL (80-99); MONOCYTES % (AUTO) 7 % (0-12); NEUTROPHILS % (AUTO) 54 % (42-75); PLATELET COUNT 309 10^3/uL (130-400); WHITE BLOOD COUNT 9.8 10^3/uL (4.3-11.0)
[2019-12-25 14:26] LABS: BASOPHILS # (AUTO) 0.1 10^3/uL (0.0-0.1); EOSINOPHILS # (AUTO) 0.1 10^3/uL (0.0-0.3); LYMPHOCYTES # (AUTO) 3.7 X 10^3 (1.0-4.0); MONOCYTES # (AUTO) 0.7 X 10^3 (0.0-1.0); NEUTROPHILS # (AUTO) 5.3 X 10^3 (1.8-7.8)
--- NOTE | 2019-12-25 14:28 | Diagnostic Imaging Report ---
INDICATION: Chest pain. COMPARISON: March 31, 2019. TECHNIQUE: Single radiograph of the chest dated December 25, 2019. FINDINGS: The cardiac silhouette is within normal limits in size. No significant pulmonary vascular congestion. Mild pulmonary hyperinflation. The lungs are clear. No pleural effusion. No pneumothorax. No acute osseous abnormality. Surgical clips are present within the right upper quadrant of the abdomen. Vascular stent grafts are noted overlying the superior aspect of the aortic arch. IMPRESSION: Mild pulmonary hyperinflation without superimposed acute cardiopulmonary abnormality. Dictated by: Dictated on workstation # [id number]
[2019-12-25 14:49] LABS: POTASSIUM 4.1 MMOL/L (3.6-5.0); SODIUM 134 MMOL/L (135-145)
[2019-12-25 14:50] LABS: ALANINE AMINOTRANSFERASE 9 U/L (0-55); ALBUMIN 4.2 GM/DL (3.2-4.5); ALKALINE PHOSPHATASE 76 U/L (40-136); BILIRUBIN,TOTAL 0.2 MG/DL (0.1-1.0); BUN/CREATININE RATIO 18; CALCIUM 9.1 MG/DL (8.5-10.1); CARBON DIOXIDE 22 MMOL/L (21-32); CHLORIDE 104 MMOL/L (98-107); CREATININE SERUM 0.97 MG/DL (0.60-1.30); GFR ESTIMATED > 60; GLUCOSE 96 MG/DL (70-105); TOTAL PROTEIN 6.9 GM/DL (6.4-8.2)
[2019-12-25 15:40] VITALS: BP 112/79
== END 2019-12-25 15:43 | disposition home or self-care (01) ==
LOC: EDUNIT# 14:00 → ER FS 14:01
DX: R07.89 Other chest pain (principal); Z87.891 Personal history of nicotine dependence; Z88.5 Allergy status to narcotic agent; Z88.6 Allergy status to analgesic agent; Z88.8 Allergy status to other drugs, medicaments and biological substances; Z95.9 Presence of cardiac and vascular implant and graft, unspecified; Z79.52 Long term (current) use of systemic steroids
CPT/HCPCS: 36415; 71045; 80053; 84484; 85025; 85379; 93041

== ENCOUNTER → 2019-12-26 | Outpatient (CLI) | payer BC ==
[~2019-12-26] MED LIST changes: +CATHETER FLUSH 10 ML SYR IV PRN; +HOLD METFORMIN - RECEIVED CONTRAST 20 ML VIAL IV SCH; +IOHEXOL 350 MG/ML 150 ML (OMNIPAQUE 350) VIAL IV ONE; +NS 100 ML (IVPB) BAG IV ONE
--- NOTE | 2019-12-26 14:19 | Diagnostic Imaging Report ---
EXAMINATION: CT angiography of the chest. TECHNIQUE: Contrast enhanced thin section helical images were obtained through the chest with intravenous contrast timed for the optimal opacification of the arterial structures per CTA protocol. Post-processing, reconstructions and interpretation of angiographic images of the vessels was performed. 3D MIP reconstructions were performed and reviewed. All CT scans use one or more of the following dose optimizing techniques: automated exposure control, MA and/or KvP adjustment based on a patient size and exam type, or iterative reconstruction. HISTORY: Subclavian artery stenosis. COMPARISON: 09/02/2018. FINDINGS: A stent is present in the origin of the right brachiocephalic artery. This is widely patent. A stent is present in the origin of the left subclavian artery. There is mild in-stent stenosis of the left subclavian stent. No pulmonary embolism is seen. There is no edema or pneumonia. No pleural effusion. No pneumothorax. No suspicious nodules. Stable cystic lesion is seen in the medial left upper lobe. There is stable scarring in the left apex. There is no axillary or supraclavicular lymphadenopathy. There is no mediastinal lymphadenopathy. Heart size is normal. There are no coronary artery calcifications. No pericardial effusion. Aorta is normal in caliber. Limited views of the upper abdomen show changes of cholecystectomy. There are no suspicious osseous lesions. IMPRESSION: 1. Widely patent stent in the right brachiocephalic artery. 2. Mild in-stent stenosis in the left subclavian origin. Dictated by: Dictated on workstation # [id number]
== END ==
LOC: RAD FS 13:14
PROVIDERS: ATTEND Family Medicine
DX: I77.1 Stricture of artery (principal)
CPT/HCPCS: 71275

== ENCOUNTER → 2020-01-16 | Outpatient (CLI) | payer BC ==
[~2020-01-16] VITALS: Ht 160 cm; Wt 59.0 kg
[~2020-01-16] MED LIST changes: -CATHETER FLUSH 10 ML SYR IV PRN; -HOLD METFORMIN - RECEIVED CONTRAST 20 ML VIAL IV SCH; -IOHEXOL 350 MG/ML 150 ML (OMNIPAQUE 350) VIAL IV ONE; -NS 100 ML (IVPB) BAG IV ONE; +REGADENOSON 0.4 MG/5 ML SYR (LEXISCAN) IV ONE
[2020-01-16] MEDS: CATHETER FLUSH 10 ML SYR IV PRN ×2 (11:12→13:01)
[2020-01-16 13:00] VITALS: BP 111/79
--- NOTE | 2020-01-16 23:24 | STRESS TEST ---
DATE OF SERVICE: 01/16/2020 RESTING AND POST REGADENOSON TECHNETIUM-99M TETROFOSMIN SPECT CT IMAGING ORDERING PHYSICIAN: Dr. Salazar. PRIMARY PHYSICIAN: Dr. Gamez. CLINICAL DIAGNOSIS: Chest discomfort, peripheral arterial disease. Baseline images were carried out after injection of 10.93 mCi of technetium-99m Tetrofosmin. This was followed by 0.4 mg of Regadenoson and 31.5 mCi of technetium-99m Tetrofosmin for stress imaging. The electrocardiogram showed sinus rhythm at baseline. It did not change significantly with the Regadenoson infusion. She tolerated the procedure well. Review of images at rest and following stress indicates a somewhat diminished count uptake in the diaphragmatic wall of the left ventricle, which is seen both at rest and following Regadenoson infusion. This appears to be a diaphragmatic artifact. Gated images show normal global left ventricular systolic function with normal regional wall motion, including the diaphragmatic wall of the left ventricle. Left ventricular ejection fraction is calculated to be 76%. Left ventricular end diastolic volume is 27 mL. TID is absent (0.82). CONCLUSIONS: 1. No evidence of any significant myocardial ischemia or infarction on this study. 2. Normal regional wall motion. 3. Normal to hyperdynamic left ventricular systolic function with a calculated ejection fraction of 76%. Job ID: [id number] DocumentID: [id number] Dictated Date: 01/16/2020 14:41:59 Contact Printer Dry Film Date: 01/16/2020 17:39:44 Dictated By: EDISON SALAZAR MD, MA, FACP, FACC,
== END ==
LOC: CARD 10:32
PROVIDERS: ATTEND Internal Medicine Cardiovascular Disease
DX: I35.8 Other nonrheumatic aortic valve disorders (principal)
CPT/HCPCS: 78452; 93017; 93306; A9502

== ENCOUNTER 2021-04-30 16:59 | Emergency (ER) | payer BC ==
[~2021-04-30] VITALS: Ht 160 cm; Wt 31.7 kg
[~2021-04-30 16:59] MED LIST changes: +CYCL10TA25 PO; -CYCL10TA9 PO; -REGADENOSON 0.4 MG/5 ML SYR (LEXISCAN) IV ONE
[2021-04-30] MEDS ORDERED: BENZ100C18 PO (18:34)
--- NOTE | 2021-04-30 18:35 | ED General ---
General Chief Complaint: Cough/Cold/Flu Symptoms Stated Complaint: COUGH Nursing Triage Note: Patient has presented to ER with cough, runny nose, no energy today, and a headache. The cough started about 2 days ago, the rest of the symptoms started today. Source of Information: Patient Exam Limitations: No Limitations History of Present Illness Date Seen by Provider: Apr 30, 2021 Time Seen by Provider: 17:27 Initial Comments This 45-year-old woman presents to the emergency room with complaints of flulike symptoms including cough productive of mucus, runny nose, myalgias, and headache. Symptoms started 2 days ago. Vital signs are stable and unremarkable. She is not in any distress. Allergies and Home Medications Allergies Coded Allergies: acetaminophen (Verified Adverse Reaction, Unknown, 09/02/18) hydrocodone (Verified Adverse Reaction, Unknown, 09/02/18) sertraline (Verified Adverse Reaction, Unknown, 09/02/18) Patient Home Medication List Home Medication List Reviewed: Yes Benzonatate (Tessalon Perles) 100 Mg Capsule, 200 MG PO TID PRN for COUGH Prescribed by: MARGIE STEVENS on 04/30/21 183 Cyclobenzaprine HCl (Cyclobenzaprine HCl) 10 Mg Tablet, 10 MG PO Q8H Prescribed by: EVANGELINA WARREN on 07/13/191651 Dibucaine (Nupercainal) 56.7 Gm Oint...g., 1 APPLIC RC Q6H PRN for pain Prescribed by: KIARRA MCGREGOR on 06/25/18 0918 Hydrocortisone Acetate (Anusol-Hc) 25 Mg Supp.rect, 25 MG RC BID Prescribed by: KIARRA MCGREGOR on 06/25/18 0916 Metoclopramide HCl (Reglan) 10 Mg Tablet, 10 MG PO TID Prescribed by: HERNÁN WRIGHT on 10/30/18 1156 Naproxen (Naprosyn) 500 Mg Tablet, 500 MG PO BID Prescribed by: BRANDON NOLEN on 09/25/181944 Prednisone (Prednisone) 20 Mg Tab, 20 MG PO BID Prescribed by: BRANDON NOLEN on 09/25/181944 Tramadol HCl (Tramadol HCl) 50 Mg Tablet, 50 MG PO Q6H PRN for PAIN Prescribed by: EVANGELINA WARREN on 07/13/19 165 Review of Systems Review of Systems Constitutional: see HPI EENTM: see HPI Respiratory: see HPI Cardiovascular: no symptoms reported Gastrointestinal: see HPI Genitourinary: no symptoms reported : No Musculoskeletal: see HPI Skin: no symptoms reported Psychiatric/Neurological: See HPI Hematologic/Lymphatic: No Symptoms Reported Immunological/Allergic: no symptoms reported Past Hihtlie-Xkpteg-Irmzvt Hx Patient Social History Tobacco Use?: No Use of E-Cig and/or Vaping dev: No Substance use?: No Alcohol Use?: No Seasonal Allergies Seasonal Allergies: No Past Medical History Surgeries: Yes (bracheocephalic stents bilaterally) Gallbladder, Tonsillectomy, Tubal Ligation Respiratory: No Cardiac: Yes Coronary Artery Disease, High Cholesterol, Hypertension 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 oz. 58.479775yy; 12.00 BMI Method:Stated General Appearance: No Apparent Distress, WD/WN, Thin HEENT: PERRL/EOMI, TMs Normal, Normal ENT Inspection, Pharynx Normal Neck: Normal Inspection Respiratory: Lungs Clear, Normal Breath Sounds, No Accessory Muscle Use, No Respiratory Distress Cardiovascular: Regular Rate, Rhythm, No Edema, No Murmur Gastrointestinal: Non Tender, Soft Extremity: Normal Inspection, No Pedal Edema Neurologic/Psychiatric: Alert, Oriented x3, No Motor/Sensory Deficits, Normal Mood/Affect, managed care manager II-XII Norm as Tested Skin: Normal Color, Warm/Dry Progress/Results/Core Measures Suspected Sepsis SIRS Temperature: Pulse: 83 Respiratory Rate: 14 Blood Pressure 123 /80 Mean: 94 Results/Orders Lab Results Laboratory Tests Test 04/30/21 17:26 Range/Units Influenza Type A Antigen NEGATIVE NEGATIVE Influenza Type B Antigen NEGATIVE NEGATIVE SARS-CoV-2 RNA (RT-PCR) Not Detected Not Detecte My Orders Orders - MARGIE LOCKETT MD Influenza A & B Antigens (04/30/21 17:27) Covid 19 Inhouse Test (04/30/21 17:26) Vital Signs/I&O 04/30/21 04/30/21 17:15 18:40 Temp 36.8 Pulse 83 69 Resp 14 17 B/P (MAP) 123/80 (94) 133/86 Pulse Ox 99 O2 Delivery Room Air Room Air Capillary Refill : Blood Pressure Mean: 94 Progress Note : Progress Note Exam and vital signs were unremarkable. Influenza was negative and Covid screening test was pending. Patient stated she would appreciate a cough suppressant. Tessalon Perles were prescribed. See discharge instructions for further discussion. Departure Impression Primary Impression: Flu-like symptoms Additional Impressions: Cough Person under investigation for COVID-19 Disposition: HOME, SELF-CARE Condition: Stable Departure-Patient Inst. Referrals: SERG DICKERSON MD (PCP/Family) Primary Care Physician Patient Instructions: COVID-19 Overview Add. Discharge Instructions: Your flu test was negative. Your COVID-19 test should result in 24 to 48 hours. Remain in quarantine until the results of your Covid test is noted. You may take vwrg-jdd-ngwrwqs decongestant medications. When you are using wlmc-mpv-yepotnz cough, cold, and decongestant medications, be sure to review the active ingredients to ensure you are not doubling up on any of the components. You may use Tylenol and/or ibuprofen for treatment of your discomfort or fever. Use Tessalon Perles as prescribed for cough. Return to the ER if you have worsening symptoms. All discharge instructions reviewed with patient and/or family. Voiced understanding. Scripts Benzonatate (TESSALON PERLES) 100 Mg Capsule 200 MG PO TID PRN for COUGH, #20 CAP Prov: MARGIE LOCKETT MD 04/30/21 Work/School Note: Work Release Form Date Seen in the Emergency Department: Apr 30, 2021 Return to Work: May 02, 2021 Restrictions: Return-No Fever (24hrs) Other Restrictions Listed Below: Stay in quarantine until COVID-19 test result known. Restrictions: If Covid positive, follow local health department quarantine guidelines. MARGIE LOCKETT MD Apr 30, 2021 18:35
[2021-04-30 18:40] VITALS: BP 133/86
== END 2021-04-30 18:40 | disposition home or self-care (01) ==
LOC: EDUNIT# 16:59 → ER FS 17:00
DX: J11.1 Influenza due to unidentified influenza virus with other respiratory manifestations (principal); R05.9 Cough, unspecified; Z20.822 Contact with and (suspected) exposure to COVID-19
CPT/HCPCS: 87636; 87804; 99283

== ENCOUNTER 2021-07-29 05:26 | Observation (INO) | payer BC ==
[~2021-07-29] VITALS: Ht 160 cm; Wt 61.7 kg
[2021-07-29] VITALS (11 sets, daily range): BP systolic 74–109; BP diastolic 58–82
[~2021-07-29 05:26] MED LIST changes: +BENZ100C18 PO
--- NOTE | 2021-07-29 05:34 | ED Chest Pain ---
General Stated Complaint: CHEST PAIN History of Present Illness Date Seen by Provider: Jul 29, 2021 Time Seen by Provider: 05:34 Initial Comments 45-year-old female presents with substernal and left-sided chest pain. Patient reports that started around 3 in the morning when it woke her up. Patient reports that she was at work and just continue to worsen. Patient denies any diaphoresis. Patient reports she has a history 7 stents done about a year ago at [facility]. She has stents in both her heart and in her right arm. She denies any shortness of breath. Patient reports that it gets worse if she sits up straight. Activity does not seem to change it. She denies any cough. No nausea or vomiting. The pain she describes it more as a pressure. (JUANITA MYLES DO) Allergies and Home Medications Allergies Coded Allergies: hydrocodone (Verified Adverse Reaction, Unknown, 09/02/18) sertraline (Verified Adverse Reaction, Unknown, 09/02/18) Patient Home Medication List Home Medication List Reviewed: Yes (JUANITA MYLES DO) Alprazolam (Alprazolam) 0.5 Mg Tablet, 0.5 MG PO HS, (Reported) Entered as Reported by: BINA ODELL on 07/29/211428 Last Action: Reviewed Atorvastatin Calcium (Atorvastatin Calcium) 20 Mg Tablet, 20 MG PO DAILY, (Reported) Entered as Reported by: BINA ODELL on 07/29/211428 Last Action: Reviewed Clopidogrel Bisulfate (Clopidogrel) 75 Mg Tablet, 75 MG PO DAILY, (Reported) Entered as Reported by: BINA ODELL on 07/29/211428 Last Action: Reviewed Ibuprofen (Ibuprofen) 800 Mg Tablet, 800 MG PO Q8H PRN for PAIN-MILD, (Reported) Entered as Reported by: BINA ODELL on 07/29/211428 Last Action: Reviewed Levothyroxine Sodium (Levothyroxine Sodium) 200 Mcg Tablet, 200 MCG PO DAILY, (Reported) Entered as Reported by: BINA ODELL on 07/29/211428 Last Action: Reviewed Metoprolol Succinate (Metoprolol Succinate) 25 Mg Tab.er.24h, 25 MG PO DAILY, (Reported) Entered as Reported by: BINA ODELL on 07/29/211428 Last Action: Reviewed Nitroglycerin (Nitroglycerin) 0.4 Mg Tab.subl, 0.4 MG SL UD PRN for CHEST PAIN (ANGINA) Prescribed by: LILIAM DENNIS JR, MD on 07/29/21 1619 Pantoprazole Sodium (Pantoprazole Sodium) 40 Mg Tablet.dr, 40 MG PO DAILY, (Reported) Entered as Reported by: BINA ODELL on 07/29/21 1429 Last Action: Reviewed Ranolazine (Ranexa) 500 Mg Tab.er.12h, 500 MG PO BID Prescribed by: LILIAM DENNIS JR, MD on 07/29/21 1619 Discontinued Medications Benzonatate (Tessalon Perles) 100 Mg Capsule, 200 MG PO TID PRN for COUGH Discontinued Reason: No Longer Taking Prescribed by: MARGIE STEVENS on 04/30/21 1834 Last Action: Discontinued Cyclobenzaprine HCl (Cyclobenzaprine HCl) 10 Mg Tablet, 10 MG PO Q8H Discontinued Reason: No Longer Taking Prescribed by: EVANGELINA WARREN on 07/13/191651 Last Action: Discontinued Dibucaine (Nupercainal) 56.7 Gm Oint...g., 1 APPLIC RC Q6H PRN for pain Discontinued Reason: No Longer Taking Prescribed by: KIARRA MCGREGOR on 06/25/18917 Last Action: Discontinued Hydrocortisone Acetate (Anusol-Hc) 25 Mg Supp.rect, 25 MG RC BID Discontinued Reason: No Longer Taking Prescribed by: KIARRA MCGREGOR on 06/25/18915 Last Action: Discontinued Metoclopramide HCl (Reglan) 10 Mg Tablet, 10 MG PO TID Discontinued Reason: No Longer Taking Prescribed by: HERNÁN WRIGHT on 10/30/18 1156 Last Action: Discontinued Naproxen (Naprosyn) 500 Mg Tablet, 500 MG PO BID Discontinued Reason: No Longer Taking Prescribed by: BRANDON NOLEN on 09/25/181944 Last Action: Discontinued Prednisone (Prednisone) 20 Mg Tab, 20 MG PO BID Discontinued Reason: No Longer Taking Prescribed by: BRANDON NOLEN on 09/25/181944 Last Action: Discontinued Tramadol HCl (Tramadol HCl) 50 Mg Tablet, 50 MG PO Q6H PRN for PAIN Discontinued Reason: No Longer Taking Prescribed by: EVANGELINA WARREN on 07/13/191651 Last Action: Discontinued Review of Systems Review of Systems Constitutional: No chills, No fever Respiratory: Denies Cough Cardiovascular: See HPI, Chest Pain; Denies Lightheadedness, Denies Palpitations Gastrointestinal: Denies Abdominal Pain, Denies Nausea, Denies Vomiting Genitourinary: No Symptoms Reported Musculoskeletal: no symptoms reported Skin: no symptoms reported Psychiatric/Neurological: No Symptoms Reported Endocrine: No Symptoms Reported Hematologic/Lymphatic: No Symptoms Reported (JUANITA MYLES DO) Past Zpwonrj-Tjnnvd-Hpjzwy Hx Seasonal Allergies Seasonal Allergies: No (JUANITA MYLES DO) Past Medical History Surgeries: Yes (bracheocephalic stents bilaterally) Gallbladder, Tonsillectomy, Tubal Ligation Respiratory: No Cardiac: Yes Coronary Artery Disease, High Cholesterol, Hypertension 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 oz. 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 Skin: Normal Color, Warm/Dry (JUANITA MYLES DO) Vital Signs Vital Signs - First Documented 07/29/21 05:28 Pulse 76 Resp 20 B/P (MAP) 98/74 (82) Pulse Ox 97 O2 Delivery Room Air (EVANGELINA WARREN DO) Progress/Results/Core Measures Results/Orders Lab Results Laboratory Tests Test 07/29/21 05:34 Range/Units White Blood Count 12.8 H 4.3-11.0 10^3/uL Red Blood Count 4.09 3.80-5.11 10^6/uL Hemoglobin 12.7 11.5-16.0 g/dL Hematocrit 38 35-52 % Mean Corpuscular Volume 92 80-99 fL Mean Corpuscular Hemoglobin 31 25-34 pg Mean Corpuscular Hemoglobin Concent 34 32-36 g/dL Red Cell Distribution Width 12.8 10.0-14.5 % Platelet Count 221 130-400 10^3/uL Mean Platelet Volume 9.7 9.0-12.2 fL Immature Granulocyte % (Auto) 0 % Neutrophils (%) (Auto) 72 42-75 % Lymphocytes (%) (Auto) 19 12-44 % Monocytes (%) (Auto) 6 0-12 % Eosinophils (%) (Auto) 3 0-10 % Basophils (%) (Auto) 1 0-10 % Neutrophils # (Auto) 9.2 H 1.8-7.8 10^3/uL Lymphocytes # (Auto) 2.4 1.0-4.0 10^3/uL Monocytes # (Auto) 0.7 0.0-1.0 10^3/uL Eosinophils # (Auto) 0.3 0.0-0.3 10^3/uL Basophils # (Auto) 0.1 0.0-0.1 10^3/uL Immature Granulocyte # (Auto) 0.1 0.0-0.1 10^3/uL Prothrombin Time 12.2 12.2-14.7 SEC INR Comment 0.9 0.8-1.4 Activated Partial Thromboplast Time 26 24-35 SEC Sodium Level 139 135-145 MMOL/L Potassium Level 3.9 3.6-5.0 MMOL/L Chloride Level 106 98-107 MMOL/L Carbon Dioxide Level 24 21-32 MMOL/L Anion Gap 9 5-14 MMOL/L Blood Urea Nitrogen 18 7-18 MG/DL Creatinine 0.95 0.60-1.30 MG/DL Estimat Glomerular Filtration Rate 74 BUN/Creatinine Ratio 19 Glucose Level 124 H 70-105 MG/DL Calcium Level 9.5 8.5-10.1 MG/DL Corrected Calcium 9.6 8.5-10.1 MG/DL Magnesium Level 1.8 1.6-2.4 MG/DL Total Bilirubin 0.3 0.1-1.0 MG/DL Aspartate Amino Transf (AST/SGOT) 16 5-34 U/L Alanine Aminotransferase (ALT/SGPT) 21 0-55 U/L Alkaline Phosphatase 94 40-136 U/L Myoglobin 27.7 10.0-92.0 NG/ML Troponin I < 0.30 <0.30 NG/ML Total Protein 6.6 6.4-8.2 GM/DL Albumin 3.9 3.2-4.5 GM/DL Lipase 56 8-78 U/L My Orders Orders - MYLES,JUANITA L DO Cbc With Automated Diff (07/29/21 05:35) Magnesium (07/29/21 05:35) Chest 1 View Ap/Pa Only (07/29/21 05:35) Ekg Tracing (07/29/21 05:35) Comprehensive Metabolic Panel (07/29/21 05:35) Myoglobin Serum (07/29/21 05:35) Protime With Inr (07/29/21 05:35) Partial Thromboplastin Time (07/29/21 05:35) Monitor-Rhythm Ecg Trace Only (07/29/21 05:35) Lipid Panel (07/30/21 06:00) Aspirin Chewable Tablet (Baby Aspirin Ch (07/29/21 05:45) Ed Iv/Invasive Line Start (07/29/21 05:35) Lipase (07/29/21 05:35) Troponin I Fs (07/29/21 05:35) Pantoprazole Injection (Protonix Injecti (07/29/21 05:45) Fentanyl Inj (Sublimaze Injection) (07/29/21 06:21) Ketorolac Injection (Toradol Injection) (07/29/21 06:40) Medications Given in ED Current Medications Medications Dose Ordered Sig/Cheryle Route Start Time Stop Time Status Last Admin Dose Admin Aspirin 324 mg ONCE ONCE PO 07/29/21 05:45 07/29/21 05:46 DC 07/29/21 05:45 324 MG Pantoprazole 40 mg ONCE ONCE IV 07/29/21 05:45 07/29/21 05:46 DC 07/29/21 05:45 40 MG Vital Signs/I&O 07/29/21 05:28 Pulse 76 Resp 20 B/P (MAP) 98/74 (82) Pulse Ox 97 O2 Delivery Room Air (MYLES,JUANITA L DO) Lab Results Laboratory Tests Test 07/29/21 05:34 07/29/21 07:25 Range/Units White Blood Count 12.8 H 4.3-11.0 10^3/uL Red Blood Count 4.09 3.80-5.11 10^6/uL Hemoglobin 12.7 11.5-16.0 g/dL Hematocrit 38 35-52 % Mean Corpuscular Volume 92 80-99 fL Mean Corpuscular Hemoglobin 31 25-34 pg Mean Corpuscular Hemoglobin Concent 34 32-36 g/dL Red Cell Distribution Width 12.8 10.0-14.5 % Platelet Count 221 130-400 10^3/uL Mean Platelet Volume 9.7 9.0-12.2 fL Immature Granulocyte % (Auto) 0 % Neutrophils (%) (Auto) 72 42-75 % Lymphocytes (%) (Auto) 19 12-44 % Monocytes (%) (Auto) 6 0-12 % Eosinophils (%) (Auto) 3 0-10 % Basophils (%) (Auto) 1 0-10 % Neutrophils # (Auto) 9.2 H 1.8-7.8 10^3/uL Lymphocytes # (Auto) 2.4 1.0-4.0 10^3/uL Monocytes # (Auto) 0.7 0.0-1.0 10^3/uL Eosinophils # (Auto) 0.3 0.0-0.3 10^3/uL Basophils # (Auto) 0.1 0.0-0.1 10^3/uL Immature Granulocyte # (Auto) 0.1 0.0-0.1 10^3/uL Prothrombin Time 12.2 12.2-14.7 SEC INR Comment 0.9 0.8-1.4 Activated Partial Thromboplast Time 26 24-35 SEC Sodium Level 139 135-145 MMOL/L Potassium Level 3.9 3.6-5.0 MMOL/L Chloride Level 106 98-107 MMOL/L Carbon Dioxide Level 24 21-32 MMOL/L Anion Gap 9 5-14 MMOL/L Blood Urea Nitrogen 18 7-18 MG/DL Creatinine 0.95 0.60-1.30 MG/DL Estimat Glomerular Filtration Rate 74 BUN/Creatinine Ratio 19 Glucose Level 124 H 70-105 MG/DL Calcium Level 9.5 8.5-10.1 MG/DL Corrected Calcium 9.6 8.5-10.1 MG/DL Magnesium Level 1.8 1.6-2.4 MG/DL Total Bilirubin 0.3 0.1-1.0 MG/DL Aspartate Amino Transf (AST/SGOT) 16 5-34 U/L Alanine Aminotransferase (ALT/SGPT) 21 0-55 U/L Alkaline Phosphatase 94 40-136 U/L Myoglobin 27.7 10.0-92.0 NG/ML Troponin I < 0.30 <0.30 NG/ML Total Protein 6.6 6.4-8.2 GM/DL Albumin 3.9 3.2-4.5 GM/DL Lipase 56 8-78 U/L My Orders Orders - EVANGELINA WARREN DO Fentanyl Inj (Sublimaze Injection) (07/29/21 07:45) Ondansetron Injection (Zofran Injectio (07/29/21 07:45) Medications Given in ED Current Medications Medications Dose Ordered Sig/Cheryle Route Start Time Stop Time Status Last Admin Dose Admin Aspirin 324 mg ONCE ONCE PO 07/29/21 05:45 07/29/21 05:46 DC 07/29/21 05:45 324 MG Pantoprazole 40 mg ONCE ONCE IV 07/29/21 05:45 07/29/21 05:46 DC 07/29/21 05:45 40 MG Vital Signs/I&O 07/29/21 05:28 Pulse 76 Resp 20 B/P (MAP) 98/74 (82) Pulse Ox 97 O2 Delivery Room Air (EVANGELINA WARREN DO) Initial ECG Impression Date: Jul 29, 2021 Initial ECG Impression Time: 05:36 Initial ECG Rate: 70 Initial ECG Rhythm: Normal Sinus Initial ECG Intervals: Normal Initial ECG Impression: Normal Comment normal ecg (JUANITA MYLES DO) Departure Communication (Admissions) EKG: Normal sinus rhythm, no acute ST-T wave changes. Patient with history of known coronary disease with multiple stents placed with last heart cath approximately 15 months ago at [place], [place] on the [place]. Patient's EKG and repeat troponins are negative. Aspirin given. Fentanyl given for pain control. Dr. Akbar agrees to admit. Case reviewed in detail with Dr. Dennis on-call for cardiology who agrees to see in consult. Recommendations are for n.p.o. status, pain control, serial troponins, and holding off anticoagulation while in the ED. (EVANGELINA WARREN DO) Impression Primary Impression: Unstable angina Disposition: 30 STILL A PATIENT Condition: Stable Admissions Decision to Admit Reason: Admit from ER (General) Decision to Admit/Date: Jul 29, 2021 Time/Decision to Admit Time: 07:40 (EVANGELINA WARREN DO) Transfer Method of Transfer: EMS (EVANGELINA WARREN DO) Departure-Patient Inst. Decision time for Depature: 07:55 (EVANGELINA WARREN DO) Referrals: SERG DICKERSON MD (PCP/Family) Primary Care Physician Scripts Nitroglycerin (Nitroglycerin) 0.4 Mg Tab.subl 0.4 MG SL UD PRN for CHEST PAIN (ANGINA), #25 TAB 2 Refills Prov: LILIAM DENNIS JR, MD 07/29/21 Ranolazine (Ranexa) 500 Mg Tab.er.12h 500 MG PO BID, #60 TAB 2 Refills Prov: LILIAM DENNIS JR, MD 07/29/21 JUANITA MYLES DO Jul 29, 2021 05:34 EVANGELINA WARREN DO Jul 29, 2021 07:55
[2021-07-29] MEDS ORDERED: PANTOPRAZOLE 40 MG (PROTONIX) VIAL IV ONE (05:45)
[2021-07-29] MEDS ORDERED: ASPIRIN 81 MG CHEW (CHILDREN'S ASA) PO ONE (05:45)
[2021-07-29 05:54] LABS: BASOPHILS # (AUTO) 0.1 10^3/uL (0.0-0.1); BASOPHILS % (AUTO) 1 % (0-10); EOSINOPHILS # (AUTO) 0.3 10^3/uL (0.0-0.3); EOSINOPHILS % (AUTO) 3 % (0-10); HEMATOCRIT 38 % (35-52); HEMOGLOBIN 12.7 g/dL (11.5-16.0); LYMPHOCYTES # (AUTO) 2.4 10^3/uL (1.0-4.0); LYMPHOCYTES % (AUTO) 19 % (12-44); MEAN CORPUSCULAR HEMOGLOBIN 31 pg (25-34); MEAN CORPUSCULAR HGB CONC 34 g/dL (32-36); MEAN CORPUSCULAR VOLUME 92 fL (80-99); MEAN PLATELET VOLUME 9.7 fL (9.0-12.2); MONOCYTES # (AUTO) 0.7 10^3/uL (0.0-1.0); MONOCYTES % (AUTO) 6 % (0-12); NEUTROPHILS # (AUTO) 9.2 10^3/uL (1.8-7.8); NEUTROPHILS % (AUTO) 72 % (42-75); PLATELET COUNT 221 10^3/uL (130-400); WHITE BLOOD COUNT 12.8 10^3/uL (4.3-11.0)
[2021-07-29] MEDS ORDERED: fentaNYL INJ 100 MCG/2 ML AMP IVP STA (06:21)
[2021-07-29 06:25] LABS: INR 0.9 (0.8-1.4); PROTHROMBIN TIME PATIENT 12.2 SEC (12.2-14.7)
[2021-07-29 06:26] LABS: CREATININE SERUM 0.95 MG/DL (0.60-1.30); POTASSIUM 3.9 MMOL/L (3.6-5.0)
[2021-07-29 06:27] LABS: ALBUMIN 3.9 GM/DL (3.2-4.5); BILIRUBIN,TOTAL 0.3 MG/DL (0.1-1.0); CALCIUM 9.5 MG/DL (8.5-10.1); MAGNESIUM 1.8 MG/DL (1.6-2.4); TOTAL PROTEIN 6.6 GM/DL (6.4-8.2)
[2021-07-29] MEDS ORDERED: KETOROLAC 30 MG/ML VIAL IVP STA (06:40)
--- NOTE | 2021-07-29 07:00 | Diagnostic Imaging Report ---
EXAMINATION: Chest radiograph, portable AP view. DATE: 07/29/2021 6:14 AM INDICATION: 45-year-old female, chest pain. COMPARISON: December 25, 2019. FINDINGS: Heart size and mediastinal contours are unchanged. There is no identified pneumothorax. There is no large pleural effusion. There is no identified focal airspace consolidation. There are right upper quadrant surgical clips. IMPRESSION: 1. No identified acute cardiopulmonary abnormality. Dictated by: Dictated on workstation # [id number]
[2021-07-29] MEDS ORDERED: ONDANSETRON 4 MG/2 ML (SDV) Z0FRAN IVP ONE (07:45)
[2021-07-29] MEDS ORDERED: fentaNYL INJ 100 MCG/2 ML AMP IVP ONE (07:45)
[2021-07-29] MEDS ORDERED: diphenhydrAMINE 50 MG/ML INJ (BENADRYL) IVP PRN (10:30)
[2021-07-29] MEDS ORDERED: morphine INJ 4 MG/ML 1 ML (VIAL/SYRINGE) IV PRN (10:30)
[2021-07-29] MEDS ORDERED: PATIENT MAY USE OWN MEDS, ALL PO SCH (10:30)
[2021-07-29] MEDS ORDERED: MELATONIN 3 MG TABLET PO PRN (10:30)
[2021-07-29] MEDS ORDERED: NITROGLYCERIN 0.4 MG SL TABS BTL 25'S SL PRN (10:30)
[2021-07-29] MEDS ORDERED: BISACODYL 10 MG SUPP (DULCOLAX) PR PRN (10:30)
[2021-07-29] MEDS ORDERED: diphenhydrAMINE 25 MG TAB (BENADRYL) PO PRN (10:30)
[2021-07-29] MEDS ORDERED: ACETAMINOPHEN 325 MG TABLET PO PRN (10:30)
[2021-07-29] MEDS ORDERED: ONDANSETRON 4 MG (ZOFRAN) ORAL DISSOLVE TAB PO PRN (10:30)
[2021-07-29] MEDS ORDERED: ONDANSETRON 4 MG/2 ML (SDV) Z0FRAN IV PRN (10:30)
[2021-07-29] MEDS ORDERED: ANTACID SUSP 30 ML UDC (MYLANTA) PO PRN (10:30)
[2021-07-29] MEDS ORDERED: NS IV 1000 ML 1,000 ML IV SCH (10:30)
[2021-07-29] MEDS ORDERED: polyethylene glycoL POWDER 17 GM (MIRALAX) PACK PO PRN (10:30)
--- NOTE | 2021-07-29 10:57 | History & Physical-Hospitalist ---
MCGRATHLUIS EDUARDO 07/29/21 1057: History of Present Illness HPI/Chief Complaint Mee Sanchez is a 45 year old female who presents to the hospital today via ems from [facility] for unstable angina. She reports waking up at 3:00 this morning with 10/10 chest pain that she describes as a pressure across her chest. She has the pain at rest and reports it is worse with exertion. Nothing has helped her chest pain at this time. She denies recent illness, shortness, or heat palpitations with the pain. She reports having a history of 7 previous coronary stents and is on dual anti-platelet therapy currently with aspirin and plavix. She reports that her cardiac events began 2 years ago and the most recent event was last april. She also has history of stenting in right arm. She sees Dr. Dwyer at [facility] in [place] for cardiology and Dr. Franco schmitz cherelle [facility] for her PCP. During her time at [facility] she had work up that revealed mild leukocytosis of 12.8, negative troponins, and unremarkable EKG for acute WA. Source: patient Exam Limitations: no limitations Date Seen 07/29/21 Time Seen by a Provider: 10:30 Attending Physician Jimbo Gamez MD PCP Admitting Physician: Chen Alvarado DO Attending Physician: Chen Alvarado DO Referring Physician Date of Admission Jul 29, 2021 at 10:17 Home Medications & Allergies Home Medications Reviewed patient Home Medication Reconciliation performed by pharmacy medication reconciliations microfilm technician and/or nursing. Patients Allergies have been reviewed. Allergies Allergies Coded Allergies hydrocodone (Verified Adverse Reaction, Unknown, 09/02/18) sertraline (Verified Adverse Reaction, Unknown, 09/02/18) Past Kbradic-Qfqaci-Yekvjb Hx Patient Social History Tobacco Use?: No Smoking Status: Former Smoker (2 years clean. 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) Family Medical History Heart Disease (father), Diabetes (mother), Hypertension (father) Review of Systems Constitutional: No chills, No fever, No weakness EENTM: No hearing loss, No vision loss, No throat pain Respiratory: No cough, No dyspnea on exertion, No short of breath Cardiovascular: chest pain, Hx of Intervention (prior coronary stent procedures); No palpitations Gastrointestinal: No abdominal pain, No constipation, No diarrhea, No nausea, No vomiting Genitourinary: No decreased output, No dysuria, No hematuria Musculoskeletal: No back pain, No muscle pain, No neck pain Skin: No lesions, No rash Psychiatric/Neurological: Denies Headache, Denies Numbness, Denies Weakness Physical Exam Physical Exam Vital Signs Vital Signs - First Documented 07/29/21 07/29/21 05:28 09:34 Temp 36.5 Pulse 76 Resp 20 B/P (MAP) 98/74 (82) Pulse Ox 97 O2 Delivery Room Air Capillary Refill : Less Than 3 Seconds Height, Weight, BMI Height: 5'3.00" Weight: 130lbs. oz. 58.623096bb; 12.00 BMI Method:Stated General Appearance: WD/WN, Mild Distress (due to chest pain) Eyes: Bilateral Eye PERRL, Bilateral Eye EOMI HEENT: PERRL/EOMI, Pharynx Normal Neck: Non Tender, Supple; No Lymphadenopathy (L), No Lymphadenopathy (R), No Thyromegaly Respiratory: Lungs Clear, Normal Breath Sounds, No Respiratory Distress Cardiovascular: No Edema, No Murmur, Normal Peripheral Pulses, Bradycardia Gastrointestinal: Normal Bowel Sounds, No Pulsatile Mass, Non Tender, Soft Back: Normal Inspection, No Vertebral Tenderness Extremity: Normal Capillary Refill; No No Calf Tenderness, No No Pedal Edema Neurologic/Psychiatric: Alert, Oriented x3, No Motor/Sensory Deficits, 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 Assessment/Plan Assessment and Plan Assessment Unstable Angina History of coronary stent procedures History of Right arm stent procedure Hypotension Bradycardia Leukocytosis hypothyroidism hyperlipidemia History of Hypertension Plan -Patient has extensive history of coronary vascular disease with reported 7 stents placed thus far. Her acute onset severe chest pain raises concerns for new coronary artery disease or problems with previous stents. Cardiac work-up thus far has been unremarkable with no signs of acute infarction but cardiology will be consulted for further cardiac work-up at this time as well as to address bradychardia and hypotension. Will look for worsening of vitals in the meantime to watch for development of cardiogenic shock. Leukocytosis is likely a physiologic response to pain since no obvious source of infection at this time with unremarkable chest x ray and no signs of end organ dysfunction. Nitroglycerin and pain medications ordered for pain control PRN. Hold home meds at this time for chronic health conditions and await further cardiac work-up results. NPO at this time. CHEN ALVARADO DO 07/29/212100: History of Present Illness HPI/Chief Complaint CC: Unstable Angina HPI: This is a [facility] female pt. 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 She presents to the [facility] with complaints of chest pain. Troponin was negative. Dr. Dennis was consulted. She likely will require a cardiac catheterization. She reports the chest pain is still occurring. Source: patient Exam Limitations: no limitations Past Wfvvfis-Tucpsk-Jehket Hx Patient Social History Marrital Status: single Employed/Student: unemployed Smoking Status: Former Smoker (2 years clean. Former every day smoker for most of her life) Review of Systems Constitutional: see HPI Cardiovascular: chest pain Physical Exam Physical Exam General Appearance: No Apparent Distress Eyes: Right Eye Normal Inspection, Right Eye PERRL HEENT: PERRL/EOMI, TMs Normal, Normal ENT Inspection, Pharynx Normal, Moist Mucous Membranes Neck: Full Range of Motion, Normal Inspection, Non Tender Respiratory: Chest Non Tender, Lungs Clear, Normal Breath Sounds, No Accessory Muscle Use, No Respiratory Distress Cardiovascular: Regular Rate, Rhythm, No Edema, No Gallop, No JVD, No Murmur, Normal Peripheral Pulses Gastrointestinal: Normal Bowel Sounds, No Organomegaly, No Pulsatile Mass, Non Tender, Soft Back: Normal Inspection, No CVA Tenderness, No Vertebral Tenderness Extremity: Normal Capillary Refill, Normal Inspection, Normal Range of Motion, Non Tender, No Calf Tenderness, No Pedal Edema Neurologic/Psychiatric: Alert, Oriented x3, No Motor/Sensory Deficits, Normal Mood/Affect Skin: Normal Color, Warm/Dry Lymphatic: No Adenopathy Assessment/Plan Admission Diagnosis Assessment: Chest pain presumed pleurisy No evidence of ACS CAD Plan: DC home Monitor closely Admission Status: Observation Diagnosis/Problems Diagnosis/Problems (1) Unstable angina Status: Acute Supervisory-Addendum Brief Verification & Attestation Participated in pt care: history, MDM, physical Personally performed: exam, history, MDM, supervision of care Care discussed with: Medical Student Procedures: n/a Results interpretation: Verified all documentation Verification and Attestation of Medical Student E/M Service A medical student performed and documented this service in my presence. I reviewed and verified all information documented by the medical student and made modifications to such information, when appropriate. I personally performed the physical exam and medical decision making. Chen Alvarado, Jul 29, 2021,21:01 LUIS EDUARDO MCGRATH Jul 29, 2021 10:57 CHEN ALVARADO DO Jul 29, 2021 21:01
[2021-07-29] MEDS ORDERED: ENOXAPARIN 40 MG/0.4 ML (LOVENOX) SYR SC SCH (11:30)
--- NOTE | 2021-07-29 14:13 | Consultation-Cardiology ---
HPI-Cardiology Cardiology Consultation: Date of Consultation 07/29/21 Date of Admission 07/29/21 Attending Physician Jimbo Gamez MD Admitting Physician Admitting Physician: Chen Akbar DO Attending Physician: Chen Akbar DO Consulting Physician LILIAM MUÑOZ JR, MD HPI: Time Seen by a Provider: 16:17 Chief Complaint: REASON FOR CONSULTATION: Chest pain. I had the pleasure of seeing Mee on the cardiac stepdown unit at [facility] in [place], [place] today. She has a known history of coronary artery disease with 7 previous coronary stents all within the past year which was done by Dr. Dwyer at [facility] in [place], [place]. Prior to the coronary stents, her symptom was substernal chest tightness with radiation to her left arm. She also had shortness of breath. Following the same procedures, her chest discomfort resolved. She was well until earlier this morning when she woke up from sleep with substernal chest tightness. She felt like somebody was sitting on her chest. This was associated with shortness of breath. However, at this time the discomfort did not radiate to her arm. She did not seek immediate medical attention. She does not have nitroglycerin at home. 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 However, she had persistent chest discomfort and told her boss that she needs to go to the ER. She went to the emergency room in [place] and had low blood pressure so she was not given nitroglycerin. She was treated with intravenous fentanyl and the chest discomfort improved. She was then transferred to our hospital for further treatment. While she was here, she received an oxycodone and then her chest discomfort has now nearly subsided. However, at this point, she says if she takes a deep breath she will get pain in the center and side of her chest on both sides. This makes her feel somewhat short of breath. She denies paroxysmal nocturnal dyspnea, insomnia, palpitations, lightheadedness, syncope, or lower extremity edema. Because of the chest pain, a cardiology consultation was requested. Certain portions of this document may have been dictated utilizing voice recognition technology. Inherent to this technology, typographical and grammatical errors may exist. As much as I am diligent to identify and correct these mistakes, some errors may remain in the document. Review of Systems-Cardiology Review of Systems Other comments Review of 10 organ systems is as per the history of present illness, otherwise negative. [id number] Hx Patient Social History Smoking Status: Former Smoker (2 years clean. Former every day smoker for most of her life) 2nd Hand Smoke Exposure: Yes Have you traveled recently?: No Alcohol Use?: No Pt feels they are or have been: No Past Medical History PMH As described under Assessment. Family Medical History Family Medical History: She believes that her father had some sort of congenital heart disease and had heart surgery at the age of 21. Allergies and Home Medications Allergies Coded Allergies: hydrocodone (Verified Adverse Reaction, Unknown, 09/02/18) sertraline (Verified Adverse Reaction, Unknown, 09/02/18) Patient Home Medication List Home Medication List Reviewed: Yes Alprazolam (Alprazolam) 0.5 Mg Tablet, 0.5 MG PO HS, (Reported) Entered as Reported by: BINA ODELL on 07/29/211428 Last Action: Reviewed Atorvastatin Calcium (Atorvastatin Calcium) 20 Mg Tablet, 20 MG PO DAILY, (Reported) Entered as Reported by: BINA ODELL on 07/29/211428 Last Action: Reviewed Clopidogrel Bisulfate (Clopidogrel) 75 Mg Tablet, 75 MG PO DAILY, (Reported) Entered as Reported by: BINA ODELL on 07/29/211428 Last Action: Reviewed Ibuprofen (Ibuprofen) 800 Mg Tablet, 800 MG PO Q8H PRN for PAIN-MILD, (Reported) Entered as Reported by: BINA ODELL on 07/29/211428 Last Action: Reviewed Levothyroxine Sodium (Levothyroxine Sodium) 200 Mcg Tablet, 200 MCG PO DAILY, (Reported) Entered as Reported by: BINA ODLEL on 07/29/211428 Last Action: Reviewed Metoprolol Succinate (Metoprolol Succinate) 25 Mg Tab.er.24h, 25 MG PO DAILY, (Reported) Entered as Reported by: BINA ODELL on 07/29/211428 Last Action: Reviewed Pantoprazole Sodium (Pantoprazole Sodium) 40 Mg Tablet.dr, 40 MG PO DAILY, (Reported) Entered as Reported by: BINA ODELL on 07/29/211428 Last Action: Reviewed Discontinued Medications Benzonatate (Tessalon Perles) 100 Mg Capsule, 200 MG PO TID PRN for COUGH Discontinued Reason: No Longer Taking Prescribed by: MARGIE STEVENS on 04/30/211833 Last Action: Discontinued Cyclobenzaprine HCl (Cyclobenzaprine HCl) 10 Mg Tablet, 10 MG PO Q8H Discontinued Reason: No Longer Taking Prescribed by: EVANGELINA WARREN on 07/13/191651 Last Action: Discontinued Dibucaine (Nupercainal) 56.7 Gm Oint...g., 1 APPLIC RC Q6H PRN for pain Discontinued Reason: No Longer Taking Prescribed by: KIARRA MCGREGOR on 06/25/18917 Last Action: Discontinued Hydrocortisone Acetate (Anusol-Hc) 25 Mg Supp.rect, 25 MG RC BID Discontinued Reason: No Longer Taking Prescribed by: KIARRA MCGREGOR on 06/25/18915 Last Action: Discontinued Metoclopramide HCl (Reglan) 10 Mg Tablet, 10 MG PO TID Discontinued Reason: No Longer Taking Prescribed by: HERNÁN WRIGHT on 10/30/18 115 Last Action: Discontinued Naproxen (Naprosyn) 500 Mg Tablet, 500 MG PO BID Discontinued Reason: No Longer Taking Prescribed by: BRANDON NOLEN on 09/25/181944 Last Action: Discontinued Prednisone (Prednisone) 20 Mg Tab, 20 MG PO BID Discontinued Reason: No Longer Taking Prescribed by: BRANDON NOLEN on 09/25/181944 Last Action: Discontinued Tramadol HCl (Tramadol HCl) 50 Mg Tablet, 50 MG PO Q6H PRN for PAIN Discontinued Reason: No Longer Taking Prescribed by: EVANGELINA WARREN on 07/13/191651 Last Action: Discontinued Exam Vital Signs Vital Signs Date Time Temp Pulse Resp B/P (MAP) Pulse Ox O2 Delivery O2 Flow Rate FiO2 07/29/21 13:00 51 74/58 (62) 96 Room Air 07/29/21 12:15 14 07/29/21 10:36 36.5 Physical Exam General: Alert. No acute distress. Well nourished and appears stated age. Eye: Extraocular movements are intact. Conjunctivae are clear. There are no xanthelasma. HENT: Normocephalic. Atraumatic. Carotid pulsations 2/2 without bruits. Neck: Jugular venous pressure does not appear elevated. No thyromegaly appreciated. Respiratory: Lungs are clear to auscultation. Respirations are non-labored. Breath sounds are equal. Symmetrical chest wall expansion. Cardiovascular: Normal rate. Regular rhythm. No murmur. No gallop. Point of maximal impulse is not appear displaced. Good pulses equal in all extremities. No edema. She does seem to have some reproducible chest pain on palpation in her midsternal area and intercostal area on both sides. Gastrointestinal: Soft. Normal bowel sounds. Skin: Skin turgor is normal. There is no pallor. Musculoskeletal: No kyphosis or scoliosis appreciated. Neurologic: Alert and oriented to person, place, time. Cranial nerves 3-12 appear grossly intact. The patient has good motor tone strength in the upper and lower extremities bilaterally. Psychiatric: Cooperative. Appropriate mood & affect. Labs Laboratory Tests Test 07/29/21 05:34 07/29/21 07:25 07/29/21 11:59 Range/Units White Blood Count 12.8 H 4.3-11.0 10^3/uL Red Blood Count 4.09 3.80-5.11 10^6/uL Hemoglobin 12.7 11.5-16.0 g/dL Hematocrit 38 35-52 % Mean Corpuscular Volume 92 80-99 fL Mean Corpuscular Hemoglobin 31 25-34 pg Mean Corpuscular Hemoglobin Concent 34 32-36 g/dL Red Cell Distribution Width 12.8 10.0-14.5 % Platelet Count 221 130-400 10^3/uL Mean Platelet Volume 9.7 9.0-12.2 fL Immature Granulocyte % (Auto) 0 % Neutrophils (%) (Auto) 72 42-75 % Lymphocytes (%) (Auto) 19 12-44 % Monocytes (%) (Auto) 6 0-12 % Eosinophils (%) (Auto) 3 0-10 % Basophils (%) (Auto) 1 0-10 % Neutrophils # (Auto) 9.2 H 1.8-7.8 10^3/uL Lymphocytes # (Auto) 2.4 1.0-4.0 10^3/uL Monocytes # (Auto) 0.7 0.0-1.0 10^3/uL Eosinophils # (Auto) 0.3 0.0-0.3 10^3/uL Basophils # (Auto) 0.1 0.0-0.1 10^3/uL Immature Granulocyte # (Auto) 0.1 0.0-0.1 10^3/uL Prothrombin Time 12.2 12.2-14.7 SEC INR Comment 0.9 0.8-1.4 Activated Partial Thromboplast Time 26 24-35 SEC Sodium Level 139 135-145 MMOL/L Potassium Level 3.9 3.6-5.0 MMOL/L Chloride Level 106 98-107 MMOL/L Carbon Dioxide Level 24 21-32 MMOL/L Anion Gap 9 5-14 MMOL/L Blood Urea Nitrogen 18 7-18 MG/DL Creatinine 0.95 0.60-1.30 MG/DL Estimat Glomerular Filtration Rate 74 BUN/Creatinine Ratio 19 Glucose Level 124 H 70-105 MG/DL Calcium Level 9.5 8.5-10.1 MG/DL Corrected Calcium 9.6 8.5-10.1 MG/DL Magnesium Level 1.8 1.6-2.4 MG/DL Total Bilirubin 0.3 0.1-1.0 MG/DL Aspartate Amino Transf (AST/SGOT) 16 5-34 U/L Alanine Aminotransferase (ALT/SGPT) 21 0-55 U/L Alkaline Phosphatase 94 40-136 U/L Myoglobin 27.7 10.0-92.0 NG/ML Troponin I < 0.30 < 0.30 < 0.028 <0.028 NG/ML Total Protein 6.6 6.4-8.2 GM/DL Albumin 3.9 3.2-4.5 GM/DL Lipase 56 8-78 U/L Radiology ECHOCARDIOGRAM (07/29/2021): 1. Left ventricle: The cavity size is normal. Wall thickness is normal. Systolic function is normal. The estimated ejection fraction is 60-65%. There were no regional wall motion abnormalities identified. Left ventricular diastolic function parameters are normal. 2. Aortic valve: There is mild aortic valve sclerosis. 3. Pulmonary arteries: The estimated pulmonary artery systolic pressure is 21 mmHg assuming a right atrial pressure of 5 mmHg. ECG Impression ECG Comment Her electrocardiogram from [place] showed a sinus rhythm and was normal. Her electrocardiogram from our hospital showed sinus bradycardia 53 bpm, otherwise unremarkable tracing. Diagnosis/Problems Diagnosis/Problems (1) Chest pain Assessment & Plan: Her chest pain seems to be pleuritic. Her electrocardiograms were essentially normal and she had 3 undetectable troponin levels. Her echocardiogram was unremarkable without regional wall motion abnormalities. I suspect this may be noncardiac chest pain, possibly due to musculoskeletal strain. I will start her on ranolazine in the event that she may be experiencing angina. She should continue on aspirin, clopidogrel, beta- herlinda, and statin medication. From a cardiac standpoint, she can be discharged home. I will also send a prescription for sublingual nitroglycerin to her pharmacy. I told her she should call Dr. Dwyer's office in the morning to schedule a follow-up appointment. I do not see any urgent need for an ischemic evaluation at this time since there seems to be a possible alt ernative cause of chest pain. (2) Coronary artery disease with unstable angina pectoris Assessment & Plan: As above, this initially sounded consistent with unstable angina but then she had no changes on her electrocardiogram and 3 negative troponin levels. She was already on beta-herlinda. In the event there could be angina contributing to her chest discomfort, I will also start her on ranolazine. She should continue on aspirin, clopidogrel, beta-herlinda and sta tin medication. (3) Mixed hyperlipidemia Assessment & Plan: Continue atorvastatin. (4) Gastroesophageal reflux disease with esophagitis Assessment & Plan: Unclear whether or not this could be contributing to her chest discomfort. She should continue on pantoprazole which she was taking at home. LILIAM MUÑOZ JR, MD Jul 29, 2021 14:13
[2021-07-29] MEDS ORDERED: CLOP75TA28 PO ×2 (14:29)
[2021-07-29] MEDS ORDERED: MTP25TSR PO ×2 (14:29)
[2021-07-29] MEDS ORDERED: PANT40TA52 PO ×2 (14:29)
[2021-07-29] MEDS ORDERED: LEVO200T6 PO ×2 (14:29)
[2021-07-29] MEDS ORDERED: ATOR20TA66 PO ×2 (14:29)
[2021-07-29] MEDS ORDERED: ALPR0.5T7 PO ×2 (14:29)
[2021-07-29] MEDS ORDERED: IBUP-1780 PO ×2 (14:29)
[2021-07-29] MEDS ORDERED: RANOLAZINE ER 500 MG TAB (RANEXA) PO SCH (16:00)
--- NOTE | 2021-07-29 16:17 | Discharge Summary ---
Discharge Summary Hospital Course Was the Problem List Reviewed?: Yes Problems/Dx: (1) Atypical chest pain Status: Acute Hospital Course Date of Admission: Jul 29, 2021 at 10:17 Admission Diagnosis : Family Physician/Provider: Vasu Date of Discharge: 07/29/21 Discharge Diagnosis: chest pain not due to ACS Hospital Course: See HPI Labs and Pending Lab Test: Laboratory Tests 07/29/21 05:34: White Blood Count 12.8H, Red Blood Count 4.09, Hemoglobin 12.7, Hematocrit 38, Mean Corpuscular Volume 92, Mean Corpuscular Hemoglobin 31, Mean Corpuscular Hemoglobin Concent 34, Red Cell Distribution Width 12.8, Platelet Count 221, Mean Platelet Volume 9.7, Immature Granulocyte % (Auto) 0, Neutrophils (%) (Auto) 72, Lymphocytes (%) (Auto) 19, Monocytes (%) (Auto) 6, Eosinophils (%) (Auto) 3, Basophils (%) (Auto) 1, Neutrophils # (Auto) 9.2H, Lymphocytes # (Auto) 2.4, Monocytes # (Auto) 0.7, Eosinophils # (Auto) 0.3, Basophils # (Auto) 0.1, Immature Granulocyte # (Auto) 0.1, Prothrombin Time 12.2, INR Comment 0.9, Activated Partial Thromboplast Time 26, Sodium Level 139, Potassium Level 3.9, Chloride Level 106, Carbon Dioxide Level 24, Anion Gap 9, Blood Urea Nitrogen 18, Creatinine 0.95, Estimat Glomerular Filtration Rate 74, BUN/Creatinine Ratio 19, Glucose Level 124H, Calcium Level 9.5, Corrected Calcium 9.6, Magnesium Level 1.8, Total Bilirubin 0.3, Aspartate Amino Transf (AST/SGOT) 16, Alanine Aminotransferase (ALT/SGPT) 21, Alkaline Phosphatase 94, Myoglobin 27.7, Troponin I < 0.30, Total Protein 6.6, Albumin 3.9, Lipase 56 07/29/21 07:25: Troponin I < 0.30 07/29/21 11:59: Troponin I < 0.028 Home Meds Active Reported Ibuprofen 800 Mg Tablet 800 Mg PO Q8H PRN Metoprolol Succinate 25 Mg Tab.er.24h 25 Mg PO DAILY Levothyroxine Sodium 200 Mcg Tablet 200 Mcg PO DAILY Clopidogrel (Clopidogrel Bisulfate) 75 Mg Tablet 75 Mg PO DAILY Pantoprazole Sodium 40 Mg Tablet.dr 40 Mg PO DAILY Atorvastatin Calcium 20 Mg Tablet 20 Mg PO DAILY Alprazolam 0.5 Mg Tablet 0.5 Mg PO HS Assessment/Pt Instructions pcp 1 week Discharge Planning: <30 minutes discharge planning Discharge Instructions Discharge Diet: No Restrictions Discharge Physical Examination Vital Signs Vital Signs Date Time Temp Pulse Resp B/P (MAP) Pulse Ox O2 Delivery O2 Flow Rate FiO2 07/29/21 16:00 36.0 75 10 103/60 (74) 97 Room Air Allergies: Coded Allergies: hydrocodone (Verified Adverse Reaction, Unknown, 09/02/18) sertraline (Verified Adverse Reaction, Unknown, 09/02/18) Discharge Summary Date of Admission Jul 29, 2021 at 10:17 Date of Discharge Discharge Date: Jul 29, 2021 RAFY ALVARADO DO Jul 29, 2021 16:17
[2021-07-29] MEDS ORDERED: RANO500T3 PO ×2 (16:19)
[2021-07-29] MEDS ORDERED: NITR0.4T42 SL ×2 (16:19)
[2021-07-29] MEDS ORDERED: DOCUSATE SODIUM 100 MG (COLACE) CAP PO SCH (21:00)
[2021-07-30] MEDS ORDERED: ASPIRIN E.C. 81 MG (ECOTRIN) TAB PO SCH (09:00)
== END 2021-07-29 16:16 | disposition home or self-care (01) ==
LOC: EDUNIT# 05:26 → ER FS 05:29 → CSD 10:17 → UNDOADMIN 10:17 → CSD 11:06 → UNDODISIN 17:20
PROVIDERS: ADMIT Internal Medicine; ATTEND Internal Medicine
DX: I25.110 Atherosclerotic heart disease of native coronary artery with unstable angina pectoris (principal); E78.2 Mixed hyperlipidemia; K21.00 Gastro-esophageal reflux disease with esophagitis, without bleeding; I95.9 Hypotension, unspecified; D72.829 Elevated white blood cell count, unspecified; E03.9 Hypothyroidism, unspecified; E78.5 Hyperlipidemia, unspecified; Z79.890 Hormone replacement therapy; Z87.891 Personal history of nicotine dependence
CPT/HCPCS: 36415; 71045; 80053; 83690; 83735; 83874; 84484; 85025; 85610; 85730; 93005; 93041; 93306; 96372; 96374; 96375; 96376

== ENCOUNTER 2021-08-01 12:16 | Outpatient (CLI) | payer BC ==
[~2021-08-01] VITALS: Ht 160 cm; Wt 62.3 kg
[~2021-08-01 12:16] MED LIST changes: +ALPR0.5T7 PO; +ATOR20TA66 PO; +CLOP75TA28 PO; +IBUP-1780 PO; +LEVO200T6 PO; +MTP25TSR PO; +NITR0.4T42 SL; +PANT40TA52 PO; +RANO500T3 PO
== END 2021-08-01 16:01 | disposition home or self-care (01) ==
LOC: PREOP 12:16
PROVIDERS: ATTEND Surgery
DX: Z01.818 Encounter for other preprocedural examination (principal)

== ENCOUNTER 2021-08-04 10:54 | Day surgery (SDC) | payer BC ==
[~2021-08-04] VITALS: Ht 160 cm; Wt 62.3 kg
[2021-08-04] MEDS ORDERED: LACTATED RINGERS 1,000 ML IV ONE (11:02)
[2021-08-04] MEDS ORDERED: LACTATED RINGERS 1,000 ML IV STA (11:35)
--- NOTE | 2021-08-04 11:39 | Progress Note-Pre Operative ---
Pre-Operative Progress Note H&P Reviewed The H&P was reviewed, patient examined and no changes noted. Time Seen by Provider: 10:39 Date H&P Reviewed: Aug 04, 2021 Time H&P Reviewed: 10:39 Pre-Operative Diagnosis: Dysphagia JAYJAY LOPEZ DO Aug 04, 2021 11:39
[2021-08-04 11:40] VITALS: BP 95/80
[2021-08-04] MEDS ORDERED: HURRICAINE EXT TUBE (BENZOCAINE) XX PRN (11:45)
[2021-08-04] MEDS ORDERED: proPOfol 200 MG/20 ML (DIPRIVAN) VIAL IV ONE (12:18)
[2021-08-04] MEDS ORDERED: MIDAZOLAM 2 MG/2 ML (VERSED) VIAL ONE (12:18)
[2021-08-04 12:35] VITALS: BP 121/61
--- NOTE | 2021-08-04 12:37 | Progress Note-Post Operative ---
Post-Operative Progess Note Surgeon (s)/Satellite Dish Repairer (s) Surgeon JAYJAY LOPEZ DO Satellite Dish Repairer: none Pre-Operative Diagnosis Dysphagia Post-Operative Diagnosis Gastritis Esophagitis small hiatal hernia Procedure & Operative Findings Date of Procedure 08/04/21 Procedure Performed/Findings EGD with bx PROCEDURE NOTE: After informed consent was obtained, the patient was brought to the endoscopy suite, placed in bed in left lateral decubitus position. She was administered IV sedation by the TRUCK CRANE OPERATOR who then monitored vitals the entire time, heart rate, blood pressure and pulse ox and the scope was inserted down the mouth through the esophagus into the stomach. On the way down, noted some mild esophagitis, took a picture, pushed into the stomach, pushed past the antrum into the duodenum. Duodenum looked good. Pulled back and did a biopsy of antrum, then retroflexed the scope, saw a small hiatal hernia and took a picture of this. I also noted retained food in the stomach and took a picture. I then pulled the scope into the GE junction, took another picture of the hiatal hernia and then did a biopsy of the GE junction. Pushed the scope back into the stomach, suctioned all the air out of the stomach. At this point pulled the scope up the esophagus and out the mouth. On the way up I took pictures of the esophagus and did not see any obstruction or reason for dysphagia. The patient tolerated the procedure, and she recovered in endoscopy suite. Anesthesia Type IV sedation by TRUCK CRANE OPERATOR Estimated Blood Loss Estimated blood loss (mL): scant Specimens/Packing Specimens Removed antral bx GE jxn bx JAYJAY LOPEZ DO Aug 04, 2021 12:37
--- NOTE | 2021-08-04 12:38 | Endoscopy Discharge Instruct ---
Endo Procedure/Findings Findings 1.: Gastritis 2.: Hiatal Hernia 3.: Other Findings (mild esophagitis) Discharge Instructions - Activity: You might feel a little sleepy until tomorrow. This is due to the medicine you received to relax you. Until tomorrow, you should: NOT drive a car, operate machinery or power tools. NOT drink any alcoholic beverages. NOT make any important decisions or sign importortant papers. Do not return to work until tomorrow, unless otherwise instructed. Resume previous activities tomorrow. Diet: Start by taking liquids. If you tolerate liquids, advance to solid food. 1.: EGD in 3 years Notify Physician - If you experience excessive bleeding, unusual abdominal pain, fever, or chest pain, contact your doctor immediately. JAYJAY LOPEZ DO Aug 04, 2021 12:38
[2021-08-04 12:40] VITALS: BP 109/54
[2021-08-04 12:45] VITALS: BP 105/57
[2021-08-04 13:20] VITALS: BP 121/67
--- NOTE | 2021-08-04 13:48 | Anesthesia-General Post-Op ---
MAC Patient Condition Mental Status/LOC: Same as Preop Cardiovascular: Satisfactory Nausea/Vomiting: Absent Respiratory: Satisfactory Pain: Controlled Complications: Absent Post Op Complications Complications None Follow Up Care/Instructions Patient Instructions None needed. Anesthesiology Discharge Order Discharge Order Patient is doing well, no complaints, stable vital signs, no apparent adverse anesthesia problems. No complications reported per nursing. FAITH MOREAU TELECOMMUNICATIONS FIELD ENGINEER Aug 04, 2021 13:48
== END 2021-08-04 13:24 | disposition home or self-care (01) ==
LOC: ENDO 10:54
PROVIDERS: ATTEND Surgery
DX: K29.50 Unspecified chronic gastritis without bleeding (principal); K20.90 Esophagitis, unspecified without bleeding; K44.9 Diaphragmatic hernia without obstruction or gangrene; Z87.891 Personal history of nicotine dependence; Z28.310 Unvaccinated for COVID-19; Z28.29 Immunization not carried out because of patient decision for other reason; Z79.02 Long term (current) use of antithrombotics/antiplatelets; Z95.5 Presence of coronary angioplasty implant and graft; Z88.5 Allergy status to narcotic agent; Z79.899 Other long term (current) drug therapy
CPT/HCPCS: 84703; 88305; 88342

== ENCOUNTER 2022-08-24 06:46 | Observation (INO) | payer SELFPAY ==
[2022-08-24] VITALS (18 sets, daily range): BP systolic 84–141; BP diastolic 42–100
[~2022-08-24] VITALS: Ht 157.5 cm; Wt 64.3 kg
[2022-08-24] MEDS ORDERED: ASPIRIN 81 MG CHEW (CHILDREN'S ASA) PO ONE (07:15)
[2022-08-24] MEDS ORDERED: NITROGLYCERIN 0.4 MG SL TABS BTL 25'S SL PRN ×2 (07:15→10:15)
[2022-08-24 07:16] LABS: BASOPHILS # (AUTO) 0.1 10^3/uL (0.0-0.1); BASOPHILS % (AUTO) 1 % (0-10); EOSINOPHILS # (AUTO) 0.1 10^3/uL (0.0-0.3); EOSINOPHILS % (AUTO) 1 % (0-10); HEMATOCRIT 40 % (35-52); HEMOGLOBIN 13.5 g/dL (11.5-16.0); LYMPHOCYTES # (AUTO) 3.3 10^3/uL (1.0-4.0); LYMPHOCYTES % (AUTO) 33 % (12-44); MEAN CORPUSCULAR HEMOGLOBIN 32 pg (25-34); MEAN CORPUSCULAR HGB CONC 34 g/dL (32-36); MEAN CORPUSCULAR VOLUME 96 fL (80-99); MEAN PLATELET VOLUME 9.5 fL (9.0-12.2); MONOCYTES # (AUTO) 0.5 10^3/uL (0.0-1.0); MONOCYTES % (AUTO) 5 % (0-12); NEUTROPHILS % (AUTO) 60 % (42-75); PLATELET COUNT 251 10^3/uL (130-400)
--- NOTE | 2022-08-24 07:18 | ED Chest Pain ---
General Chief Complaint: Chest Pain Stated Complaint: CHEST PAIN| ARM PAIN Nursing Triage Note: Pt complaining of chest pain that started around 0230 this morning Source: patient History of Present Illness Date Seen by Provider: Aug 24, 2022 Time Seen by Provider: 06:51 Initial Comments 46-year-old female presenting with complaints of sharp chest pains that started at 2:30 in the morning when she woke up. She has throbbing pain into her left arm as well. She reports that she has had 7 cardiac stents in the last 2 and half years. She has been seen at [facility] in [place] by Dr. Dwyer with cardiology. She states that she has not followed up with cardiology since having the stents placed as she lives here in [place] and did not have the means to travel to [place]. She follows with Dr. Dickerson at [facility] and has medicine for blood pressure, hypothyroid, muscle spasms. She does not take aspirin and has not had any aspirin this morning or taken anything for pain. She states that her pain is sharp in the chest and throbbing in her left arm. She reports that this feels similar to when she has had to have stents placed previously. She has been having some sweating as well as nausea with the pain. She denies any vomiting. She had woke up at 230 to get ready for work and has had sharp pains ever since this started. She felt the pain was worse while she was at work and could not continue with her shift and was advised to go to the emergency department. She rates her pain at 8 out of 10. 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 NTG SL CUPOLA LINER HELPER: No Associated Symptoms: No abdominal pain, No back pain; diaphoresis; No dizziness, No edema, No fatigue, No fever/chills, No headache, No heartburn; nausea/vomiting (nausea with the pain but denies vomiting); No rash; shortness of breath; No swelling/lump in chest, No syncope Allergies and Home Medications Allergies Coded Allergies: hydrocodone (Verified Adverse Reaction, Unknown, 09/02/18) sertraline (Verified Adverse Reaction, Unknown, 09/02/18) Patient Home Medication List Home Medication List Reviewed: Yes Alprazolam (Alprazolam) 0.5 Mg Tablet, 0.5 MG PO HS, (Reported) Entered as Reported by: BINA ODELL on 07/29/211428 Atorvastatin Calcium (Atorvastatin Calcium) 20 Mg Tablet, 20 MG PO DAILY, (Reported) Entered as Reported by: BINA ODELL on 07/29/211428 Clopidogrel Bisulfate (Clopidogrel) 75 Mg Tablet, 75 MG PO DAILY, (Reported) Entered as Reported by: BINA ODELL on 07/29/211428 Ibuprofen (Ibuprofen) 800 Mg Tablet, 800 MG PO Q8H PRN for PAIN-MILD, (Reported) Entered as Reported by: BINA ODELL on 07/29/211428 Levothyroxine Sodium (Levothyroxine Sodium) 200 Mcg Tablet, 200 MCG PO DAILY, (Reported) Entered as Reported by: BINA ODLEL on 07/29/211428 Metoprolol Succinate (Metoprolol Succinate) 25 Mg Tab.er.24h, 25 MG PO DAILY, (Reported) Entered as Reported by: BINA ODELL on 07/29/211428 Nitroglycerin (Nitroglycerin) 0.4 Mg Tab.subl, 0.4 MG SL UD PRN for CHEST PAIN (ANGINA) Prescribed by: LILIAM MUÑOZ JR, MD on 07/29/211618 Pantoprazole Sodium (Pantoprazole Sodium) 40 Mg Tablet.dr, 40 MG PO DAILY, (Reported) Entered as Reported by: BINA ODELL on 07/29/211428 Ranolazine (Ranexa) 500 Mg Tab.er.12h, 500 MG PO BID Prescribed by: LILIAM MUÑOZ JR, MD on 07/29/211618 Review of Systems Review of Systems Constitutional: No chills, No fever EENTM: No Symptoms Reported Respiratory: See HPI Cardiovascular: See HPI Gastrointestinal: See HPI Genitourinary: No Symptoms Reported Musculoskeletal: no symptoms reported Skin: no symptoms reported Psychiatric/Neurological: Anxiety Hematologic/Lymphatic: Denies Blood Clots Past Gkdlgiv-Stnmwx-Uawmzj Hx Patient Social History Tobacco Use?: No Use of E-Cig and/or Vaping dev: No Substance use?: No Alcohol Use?: No Pt feels they are or have been: No Immunizations Up To Date First/Initial COVID19 Vaccinat: NO Second COVID19 Vaccination Zenon: NO Third COVID19 Vaccination Date: NON Seasonal Allergies Seasonal Allergies: No Past Medical History Surgery/Hospitalization HX: CAD with 7 stents, Hypothyroid, Hyperlipidemia, Peripheral artery disease Surgeries: Yes (bracheocephalic stents bilaterally) Cardiac, Gallbladder, Tonsillectomy, Tubal Ligation Respiratory: No Currently Using CPAP: No Currently Using BIPAP: No Cardiac: Yes Coronary Artery Disease, High Cholesterol, Hypertension Neurological: No THAI MASSEUR History: Tubal Ligation Genitourinary: No Gastrointestinal: Yes Gall Bladder Disease Musculoskeletal: No Endocrine: Yes Hypothyroidsim HEENT: No Cancer: No Psychosocial: No Integumentary: No Blood Disorders: Yes (bracheocephalic blood clots bilaterally) Family Medical History Heart Disease, Diabetes, Hypertension Physical Exam Vital Signs Vital Signs - First Documented 08/24/22 06:47 Temp 36.8 Pulse 76 Resp 20 B/P (MAP) 117/81 (93) Pulse Ox 97 O2 Delivery Room Air Capillary Refill : Less Than 3 Seconds Height, Weight, BMI Height: 5'3.00" Weight: 130lbs. oz. 58.344473do; 24.33 BMI Method:Stated General Appearance: Anxious, Mild Distress, Thin HEENT: PERRL/EOMI, Moist Mucous Membranes Neck: Full Range of Motion, Normal Inspection, Non Tender, Supple Respiratory: Chest Non Tender, Lungs Clear, Normal Breath Sounds, No Accessory Muscle Use, No Respiratory Distress Cardiovascular: Regular Rate, Rhythm, Normal Peripheral Pulses Gastrointestinal: Normal Bowel Sounds, No Pulsatile Mass, Non Tender, Soft Rectal: Deferred Extremity: Normal Capillary Refill, No Calf Tenderness, No Pedal Edema Neurologic/Psychiatric: Alert, Oriented x3 Skin: Normal Color, Warm/Dry Critical Care Note Critical Care Total Time (minutes) 45 minutes Progress I spent at least 45 minutes of critical care time with the patient. Time excludes separately billable procedures. Time was spent obtaining history from patient and electronic medical record, ordering test and reviewing results, ordering interventions and reviewing response, discussion with consultants, discussion with patient, documentation in the chart. Patient was at risk of cardiovascular compromise and collapse with her history of prior cardiac stents and similar pain today. She required my immediate evaluation and continued monitoring to stabilize the patient and arrange for transfer to higher level of care. Progress/Results/Core Measures Results/Orders Lab Results Laboratory Tests Test 08/24/22 06:53 Range/Units White Blood Count 10.0 4.3-11.0 10^3/uL Red Blood Count 4.18 3.80-5.11 10^6/uL Hemoglobin 13.5 11.5-16.0 g/dL Hematocrit 40 35-52 % Mean Corpuscular Volume 96 80-99 fL Mean Corpuscular Hemoglobin 32 25-34 pg Mean Corpuscular Hemoglobin Concent 34 32-36 g/dL Red Cell Distribution Width 12.5 10.0-14.5 % Platelet Count 251 130-400 10^3/uL Mean Platelet Volume 9.5 9.0-12.2 fL Immature Granulocyte % (Auto) 0 % Neutrophils (%) (Auto) 60 42-75 % Lymphocytes (%) (Auto) 33 12-44 % Monocytes (%) (Auto) 5 0-12 % Eosinophils (%) (Auto) 1 0-10 % Basophils (%) (Auto) 1 0-10 % Neutrophils # (Auto) 6.0 1.8-7.8 10^3/uL Lymphocytes # (Auto) 3.3 1.0-4.0 10^3/uL Monocytes # (Auto) 0.5 0.0-1.0 10^3/uL Eosinophils # (Auto) 0.1 0.0-0.3 10^3/uL Basophils # (Auto) 0.1 0.0-0.1 10^3/uL Immature Granulocyte # (Auto) 0.0 0.0-0.1 10^3/uL Prothrombin Time 12.4 12.2-14.7 SEC INR Comment 0.9 0.8-1.4 Activated Partial Thromboplast Time 28 24-35 SEC D-Dimer 0.40 0.00-0.49 UG/ML Sodium Level 135 135-145 MMOL/L Potassium Level 4.0 3.6-5.0 MMOL/L Chloride Level 104 98-107 MMOL/L Carbon Dioxide Level 20 L 21-32 MMOL/L Anion Gap 11 5-14 MMOL/L Blood Urea Nitrogen 15 7-18 MG/DL Creatinine 0.98 0.60-1.30 MG/DL Estimat Glomerular Filtration Rate 71 BUN/Creatinine Ratio 15 Glucose Level 121 H 70-105 MG/DL Calcium Level 9.5 8.5-10.1 MG/DL Corrected Calcium 9.5 8.5-10.1 MG/DL Magnesium Level 2.1 1.6-2.4 MG/DL Total Bilirubin 0.3 0.1-1.0 MG/DL Aspartate Amino Transf (AST/SGOT) 20 5-34 U/L Alanine Aminotransferase (ALT/SGPT) 9 0-55 U/L Alkaline Phosphatase 93 40-136 U/L Troponin I < 0.30 <0.30 NG/ML Pro-B-Type Natriuretic Peptide 106.9 <125.0 PG/ML Total Protein 7.1 6.4-8.2 GM/DL Albumin 4.0 3.2-4.5 GM/DL Lipase 51 8-78 U/L My Orders Orders - TEOFILO ALEJANDRE MD Cbc With Automated Diff (08/24/22 07:06) Magnesium (08/24/22 07:06) Chest 1 View Ap/Pa Only (08/24/22 07:06) Comprehensive Metabolic Panel (08/24/22 07:06) Protime With Inr (08/24/22 07:06) Partial Thromboplastin Time (08/24/22 07:06) O2 (08/24/22 07:06) Monitor-Rhythm Ecg Trace Only (08/24/22 07:06) Aspirin Chewable Tablet (Baby Aspirin Ch (08/24/22 07:15) Ed Iv/Invasive Line Start (08/24/22 07:06) Lipase (08/24/22 07:06) Troponin I Fs (08/24/22 07:06) Probnp Fs (08/24/22 07:06) Fibrin Degradation Products (08/24/22 07:06) Morphine Injection (Morphine Injection (08/24/22 07:22) Ondansetron Injection (Zofran Injectio (08/24/22 07:22) Ns Iv 1000 Ml (Sodium Chloride 0.9%) (08/24/22 07:22) Fentanyl Inj (Sublimaze Injection) (08/24/22 08:06) Pantoprazole Injection (Protonix Injecti (08/24/22 08:06) Ketorolac Injection (Toradol Injection) (08/24/22 08:06) Enoxaparin Injection (Lovenox Injection) (08/24/22 08:11) Clopidogrel Tablet (Plavix Tablet) (08/24/22 08:11) Ed Admission (Communication) (08/24/22 08:24) Medications Given in ED Current Medications Medications Dose Ordered Sig/Cheryle Route Start Time Stop Time Status Last Admin Dose Admin Aspirin 324 mg ONCE ONCE PO 08/24/22 07:15 08/24/22 07:16 DC 08/24/22 07:20 324 MG Vital Signs/I&O 08/24/22 08/24/22 06:47 07:05 Temp 36.8 Pulse 76 Resp 20 B/P (MAP) 117/81 (93) Pulse Ox 97 96 O2 Delivery Room Air Room Air Blood Pressure Mean: 93 Admisison Planning May Need Admission (Planning): 07:00 Progress Progress Note #1: Progress Note Potential life-threatening diagnosis of acute coronary syndrome, myocardial infarction, acute congestive heart failure, pulmonary embolism, pneumonia, GERD, musculoskeletal chest pain, aortic aneurysm. Obtain electrocardiogram on arrival to the ED. Placed on cardiac monitoring manager and initial heart rate and rhythm showed sinus rhythm with a heart rate in the 60s. Obtain peripheral IV access and send labs for complete blood count, comprehensive metabolic profile, coags, troponin, proBNP, lipase. Chest xray to look for pathology in the chest. Aspirin 324 mg po x 1 since she has not had any with this episode of pain. She did take her medicine this am when she got up. Order sublingual nitroglycerin 0.4 mg every 5 minutes x3 for chest pain. 0718 patient's blood pressure was 108 systolic so the nitroglycerin was held since the order from pharmacy read that if the blood pressure was less than 110 to not give the medication. In place of this ordered a liter of normal saline to try and help with her blood pressure and hydration as well as morphine 2 mg IV and Zofran 4 mg IV. Since the patient reports this pain is the same as when she had to have prior stent placement she may need admitted for cardiac evaluation and possible repeat heart cath since she has not followed up with any optical advisor since having stents placed in at [facility]. 0722 on my personal review and interpretation of her 1 view chest x-ray I did not appreciate any acute process. Progress Note #2: Time: 07:39 Progress Note My review of her labs her complete blood count showed a normal white blood cell count of 10 with a hemoglobin of 13.5. She had normal platelets at 251. Her coagulation factors were not elevated with a pro time of 12.4, INR of 0.9, PTT of 28. She had a negative D-dimer at 0.4. Her comprehensive metabolic panel did not show acute significant electrolyte abnormality. Her sodium was normal at 135 and potassium of 4. Her creatinine was normal at 0.98. Her troponin after 4 and half hours of constant pain was negative at less than 0.3. Her magnesium was normal at 2.1 and lipase normal at 51. Will see if she has any improvement in her symptoms with medication and treatment. She may still need to have admission for cardiology evaluation since she has not had any follow-up with cardiology since stent placement in 2020. 0742 I reviewed the radiologist report on the 1 view chest x-ray. The felt that she had chronic findings but also possible atelectasis versus pneumonitis in the left base. 0748 On recheck of the patient she states her pain went from 8 down to 6 out of 10. Nausea is doing better. Still complains that it feels like when she had to have stents placed previously. Add on Fentanyl 50 mcg IV for pain, Toradol 15 mg IV for possible musculoskeletal pain, Pantoprazole 40 mg IV for possible GERD or GI source of pain. [address] King, Behavioral Health Care Manager senior qa automation engineer. I reviewed with him the patient's presentation and history of prior stent placement in 2020 at [facility]. She reports the pain feels the same today. She has had a negative initial troponin after 4 hours of pain and no ST elevation on her electrocardiogram. She continues to have pain despite aspirin and morphine. He requested that the patient receive a dose of Lovenox and loading dose of Plavix 300 mg p.o. x1. He requested an echocardiogram as well. 0811 page placed to speak with Dr. Anand, hospitalist on for [facility] today. Will discuss the patient and her presentation and test results as well as discussion with Dr. King with Cardiology. Will see about possible admit for echocardiogram and serial enzymes with cardiology consult. 0818 d/w Dr. Anand, hospitalist for [facility]. I reviewed the patient presentation and history of prior stent placement when she had pain like she is having today. She reports that stress testing and labs had not shown a problem but when she went to [facility]ou[facility] because she still had pain they found blockages and she has a total of 7 stents in her heart. She also reports peripheral artery disease requiring stents in her arms. She still has pain after aspirin, morphine and zofran so giving Fentanyl and Toradol with protonix. I did check in with Dr. King for cardiology and he requested an echocardiogram in addition to loading dose of plavix 300 mg and Lovenox 1 mg/kg subutaneous dose. Dr. Anand was agreeable with observation admit to cardiac stepdown and cardiology consult. Will place bridge orders since Dr. Anand was driving and not where she could place queued orders. 0851 Patient reports her pain is doing better and down to 2 or 3 out of 10 now. Initial ECG Impression Date: Aug 24, 2022 Initial ECG Impression Time: 06:49 Initial ECG Rate: 76 Initial ECG Rhythm: Normal Sinus Initial ECG Comparisson: Unchanged (Overall appears similar to tracing from ) Comment On my personal interpretation and review her electrocardiogram shows normal sinus rhythm with heart rate of 76 bpm. DE interval 149 ms. QT interval 350 ms with a QTc interval 380 ms. There is no acute ST elevation. Overall appears similar to tracing from July 29, 2021. Diagnostic Imaging Diagonstic Imaging: Xray Plain Films/CT/US/NM/MRI: chest Comments NAME: KOREY WARREN [facility] REC#: [id number] PT STATUS: REG ER : 1975 PHYSICIAN: TEOFILO ALEJANDRE MD ADMIT DATE: 08/24/22/ER FS Draft Date of Exam:08/24/22 CHEST 1 VIEW AP/PA ONLY INDICATION: Chest pain. COMPARISON: 07/29/2021 TECHNIQUE: Single radiograph of the chest dated 08/24/2022. FINDINGS: The cardiac silhouette is within normal limits in size. No significant pulmonary vascular congestion. Vascular stents are seen noted overlying near the aortic arch. Mild linear interstitial opacities in the left lung base. The lungs otherwise appear clear. No significant pleural effusion. No pneumothorax. No acute osseous abnormality. IMPRESSION: Minimal left basilar atelectasis and/or pneumonitis. Additional stable findings as above. Dictated on workstation # [id number] Dict: 08/24/22 0734 Trans: 08/24/22 0741 [id number] Interpreted by: TIMMY AGUIRRE MD Electronically signed by: Reviewed: Reviewed by Me Departure Communication (Admissions) Time/Spoke to Admitting Phy: [phone] d/w Dr. Anand, hospitalist for [facility]. I reviewed the patient presentation and history of prior stent placement when she had pain like she is having today. She reports that stress testing and labs had not shown a problem but when she went to [facility] because she still had pain they found blockages and she has a total of 7 stents in her heart. She also reports peripheral artery disease requiring stents in her arms. She still has pain after aspirin, morphine and zofran so giving Fentanyl and Toradol with protonix. I did check in with Dr. King for ca rdiology and he requested an echocardiogram in addition to loading dose of plavix 300 mg and Lovenox 1 mg/kg subutaneous dose. Dr. Anand was agreeable with observation admit to cardiac stepdown and cardiology consult. Will place bridge orders since Dr. Anand was driving and not where she could place queued orders. Time/Spoke to Consulting Phy: 08:[phone] King, Behavioral Health Care Manager senior qa automation engineer. I reviewed with him the patient's presentation and history of prior stent placement in 2020 at [facility]. She reports the pain feels the same today. She has had a negative initial troponin after 4 hours of pain and no ST elevation on her electrocardiogram. She continues to have pain despite aspirin and morphine. He requested that the patient receive a dose of Lovenox and loading dose of Plavix 300 mg p.o. x1. He requested an echocardiogram as well. Impression Primary Impression: Atypical chest pain Additional Impression: Coronary artery disease with unstable angina pectoris Qualified Codes: I25.110 - Atherosclerotic heart disease of [place] coronary artery with unstable angina pectoris Disposition: 30 STILL A PATIENT Condition: Critical Admissions Decision to Admit Reason: Admit from ER (General) Decision to Admit/Date: Aug 24, 2022 Time/Decision to Admit Time: 08:18 Departure-Patient Inst. Referrals: SERG DICKERSON MD (PCP/Family) Primary Care Physician TEOFILO ALEJANDRE MD Aug 24, 2022 07:18
[2022-08-24] MEDS ORDERED: NS IV 1000 ML 1,000 ML IV STA (07:22)
[2022-08-24] MEDS ORDERED: morphine INJ 10 MG/ML 1ML (SYR OR VIAL) IVP STA (07:22)
[2022-08-24] MEDS ORDERED: ONDANSETRON 4 MG/2 ML (SDV) Z0FRAN IVP STA (07:22)
[2022-08-24 07:32] LABS: FIBRIN DEGRADATION PRODUCTS 0.4 UG/ML (0.00-0.49); INR 0.9 (0.8-1.4); PROTHROMBIN TIME PATIENT 12.4 SEC (12.2-14.7)
[2022-08-24 07:33] LABS: ALKALINE PHOSPHATASE 93 U/L (40-136); BILIRUBIN,TOTAL 0.3 MG/DL (0.1-1.0); BUN/CREATININE RATIO 15; CALCIUM 9.5 MG/DL (8.5-10.1); CARBON DIOXIDE 20 MMOL/L (21-32); CHLORIDE 104 MMOL/L (98-107); CREATININE SERUM 0.98 MG/DL (0.60-1.30); GFR ESTIMATED 71; GLUCOSE 121 MG/DL (70-105); MAGNESIUM 2.1 MG/DL (1.6-2.4); SODIUM 135 MMOL/L (135-145)
[2022-08-24 07:34] LABS: ALANINE AMINOTRANSFERASE 9 U/L (0-55); LIPASE 51 U/L (8-78); TOTAL PROTEIN 7.1 GM/DL (6.4-8.2)
--- NOTE | 2022-08-24 07:41 | Diagnostic Imaging Report ---
INDICATION: Chest pain. COMPARISON: 07/29/2021 TECHNIQUE: Single radiograph of the chest dated 08/24/2022. FINDINGS: The cardiac silhouette is within normal limits in size. No significant pulmonary vascular congestion. Vascular stents are seen noted overlying near the aortic arch. Mild linear interstitial opacities in the left lung base. The lungs otherwise appear clear. No significant pleural effusion. No pneumothorax. No acute osseous abnormality. IMPRESSION: Minimal left basilar atelectasis and/or pneumonitis. Additional stable findings as above. Dictated by: Dictated on workstation # [id number]
[2022-08-24] MEDS ORDERED: KETOROLAC 15 MG/ML VIAL IVP STA (08:06)
[2022-08-24] MEDS ORDERED: PANTOPRAZOLE 40 MG (PROTONIX) VIAL IV STA (08:06)
[2022-08-24] MEDS ORDERED: fentaNYL INJ 100 MCG/2 ML AMP IVP STA (08:06)
[2022-08-24] MEDS ORDERED: CLOPIDOGREL 300 MG (PLAVIX) TABLET PO STA (08:11)
[2022-08-24] MEDS ORDERED: ENOXAPARIN 60 MG/0.6 ML (LOVENOX) SYR SC STA (08:11)
[2022-08-24] MEDS ORDERED: ONDANSETRON 4 MG/2 ML (SDV) Z0FRAN IV PRN (10:15)
[2022-08-24] MEDS ORDERED: morphine INJ 4 MG/ML 1 ML (VIAL/SYRINGE) IVP PRN (10:30)
[2022-08-24] MEDS: NS IV 1000 ML 1,000 ML IV SCH ×2 (10:43→15:11)
[2022-08-24] MEDS ORDERED: NS IV 1000 ML 1,000 ML IV ONE ×2 (11:00→12:30)
[2022-08-24] MEDS ORDERED: fentaNYL INJ 100 MCG/2 ML AMP ONE (12:32)
[2022-08-24] MEDS ORDERED: MIDAZOLAM 5 MG/5 ML (VERSED) VIAL ONE (12:32)
[2022-08-24] MEDS ORDERED: VERAPAMIL 5 MG/2 ML (CALAN) VIAL IV ONE (12:32)
[2022-08-24] MEDS ORDERED: HEParin 1000 UNIT/ML (10ML VIAL) FOR BOLUS ONE (12:32)
[2022-08-24] MEDS ORDERED: NS IV 1000 ML 0 ML ONE (12:33)
[2022-08-24] MEDS ORDERED: NITRO DRIP 25000 MCG/D5W 0 ML IV ONE (12:33)
[2022-08-24] MEDS ORDERED: HEParin (CATH LAB) 1,000 ML IV ONE (12:33)
[2022-08-24] MEDS ORDERED: LIDOCAINE 1% INJ 20 ML VIAL ONE (12:33)
--- NOTE | 2022-08-24 13:23 | Consultation-Cardiology ---
HPI-Cardiology Cardiology Consultation: Date of Consultation 08/24/22 Date of Admission Attending Physician Jimbo Gamez MD Admitting Physician Admitting Physician: Berenice Anand MD Attending Physician: Berenice Anand MD Consulting Physician Sinai HUNTLEY MD HPI: Time Seen by a Provider: 12:30 Chief Complaint: Chest pain This is a 46-year-old lady with previous history of significant coronary artery disease with multiple PCI and stents done in more than 1 vessel [facility] [place]. Her client executive is Dr. Dwyer. Previously patient used to smoke but quit 2 years ago. She denies diabetes or hypertension. According to her she has been compliant with her Plavix. She had a visit to the hospital last year in July and was discharged due to negative serial troponins and electrocardiogram. She presents with chest pain since director clinical operations in the center of the chest radiating to the left upper extremity. She denies any back discomfort. She was given fentanyl. Mild associated sweating and nausea. She continues to have 7/10 chest pain. Serial troponin negative. Review of Systems-Cardiology Review of Systems Constitutional: other (Mild sweating) Eyes: no symptoms reported Ears/Nose/Throat: no symptoms reported Respiratory: no symptoms reported Cardiovascular: chest pain Gastrointestinal: nausea/vomiting/diarrhea Genitourinary: no symptoms reported Musculoskeletal: no symptoms reported Skin: no symptoms reported Psychiatric/Neurological: no symptoms reported Hematologic: no symptoms reported SIG-Nelrmc-Wyjedv Hx Patient Social History 2nd Hand Smoke Exposure: Yes Alcohol Use?: No Pt feels they are or have been: No Past Medical History PMH As described under Assessment. Family Medical History Family Medical History: She believes that her father had some sort of congenital heart disease and had heart surgery at the age of 21. Allergies and Home Medications Allergies Coded Allergies: hydrocodone (Verified Adverse Reaction, Unknown, 09/02/18) sertraline (Verified Adverse Reaction, Unknown, 09/02/18) Patient Home Medication List Home Medication List Reviewed: Yes Alprazolam (Alprazolam) 0.5 Mg Tablet, 0.5 MG PO HS, (Reported) Entered as Reported by: BINA ODELL on 07/29/21 1429 Atorvastatin Calcium (Atorvastatin Calcium) 20 Mg Tablet, 20 MG PO DAILY, (Reported) Entered as Reported by: BINA ODELL on 07/29/211428 Clopidogrel Bisulfate (Clopidogrel) 75 Mg Tablet, 75 MG PO DAILY, (Reported) Entered as Reported by: BINA ODELL on 07/29/211428 Ibuprofen (Ibuprofen) 800 Mg Tablet, 800 MG PO Q8H PRN for PAIN-MILD, (Reported) Entered as Reported by: BIAN ODELL on 07/29/211428 Levothyroxine Sodium (Levothyroxine Sodium) 200 Mcg Tablet, 200 MCG PO DAILY, (Reported) Entered as Reported by: BINA ODELL on 07/29/211428 Metoprolol Succinate (Metoprolol Succinate) 25 Mg Tab.er.24h, 25 MG PO DAILY, (Reported) Entered as Reported by: BINA ODELL on 07/29/211428 Nitroglycerin (Nitroglycerin) 0.4 Mg Tab.subl, 0.4 MG SL UD PRN for CHEST PAIN (ANGINA) Prescribed by: LILIAM MUÑOZ JR, MD on 07/29/211618 Pantoprazole Sodium (Pantoprazole Sodium) 40 Mg Tablet.dr, 40 MG PO DAILY, (Reported) Entered as Reported by: BINA ODELL on 07/29/211428 Ranolazine (Ranexa) 500 Mg Tab.er.12h, 500 MG PO BID Prescribed by: LILIAM MUÑOZ JR, MD on 07/29/211618 Exam Vital Signs Vital Signs Date Time Temp Pulse Resp B/P (MAP) Pulse Ox O2 Delivery O2 Flow Rate FiO2 08/24/22 11:23 36.2 45 16 101/70 (80) 98 Room Air Physical Exam Constitutional examination: Not in any acute distress. Still complaining of chest discomfort. Chest: Clear to auscultation bilaterally. CVS: Sinus bradycardia with no murmur. No pedal edema. Labs Laboratory Tests Test 08/24/22 06:53 08/24/22 10:25 Range/Units White Blood Count 10.0 4.3-11.0 10^3/uL Red Blood Count 4.18 3.80-5.11 10^6/uL Hemoglobin 13.5 11.5-16.0 g/dL Hematocrit 40 35-52 % Mean Corpuscular Volume 96 80-99 fL Mean Corpuscular Hemoglobin 32 25-34 pg Mean Corpuscular Hemoglobin Concent 34 32-36 g/dL Red Cell Distribution Width 12.5 10.0-14.5 % Platelet Count 251 130-400 10^3/uL Mean Platelet Volume 9.5 9.0-12.2 fL Immature Granulocyte % (Auto) 0 % Neutrophils (%) (Auto) 60 42-75 % Lymphocytes (%) (Auto) 33 12-44 % Monocytes (%) (Auto) 5 0-12 % Eosinophils (%) (Auto) 1 0-10 % Basophils (%) (Auto) 1 0-10 % Neutrophils # (Auto) 6.0 1.8-7.8 10^3/uL Lymphocytes # (Auto) 3.3 1.0-4.0 10^3/uL Monocytes # (Auto) 0.5 0.0-1.0 10^3/uL Eosinophils # (Auto) 0.1 0.0-0.3 10^3/uL Basophils # (Auto) 0.1 0.0-0.1 10^3/uL Immature Granulocyte # (Auto) 0.0 0.0-0.1 10^3/uL Prothrombin Time 12.4 12.2-14.7 SEC INR Comment 0.9 0.8-1.4 Activated Partial Thromboplast Time 28 24-35 SEC D-Dimer 0.40 0.00-0.49 UG/ML Sodium Level 135 135-145 MMOL/L Potassium Level 4.0 3.6-5.0 MMOL/L Chloride Level 104 98-107 MMOL/L Carbon Dioxide Level 20 L 21-32 MMOL/L Anion Gap 11 5-14 MMOL/L Blood Urea Nitrogen 15 7-18 MG/DL Creatinine 0.98 0.60-1.30 MG/DL Estimat Glomerular Filtration Rate 71 BUN/Creatinine Ratio 15 Glucose Level 121 H 70-105 MG/DL Calcium Level 9.5 8.5-10.1 MG/DL Corrected Calcium 9.5 8.5-10.1 MG/DL Magnesium Level 2.1 1.6-2.4 MG/DL Total Bilirubin 0.3 0.1-1.0 MG/DL Aspartate Amino Transf (AST/SGOT) 20 5-34 U/L Alanine Aminotransferase (ALT/SGPT) 9 0-55 U/L Alkaline Phosphatase 93 40-136 U/L Troponin I < 0.30 < 0.028 <0.028 NG/ML Pro-B-Type Natriuretic Peptide 106.9 <125.0 PG/ML Total Protein 7.1 6.4-8.2 GM/DL Albumin 4.0 3.2-4.5 GM/DL Lipase 51 8-78 U/L ECG Impression ECG Initial ECG Rhythm: S.Luis Manuel Initial ECG Impression: Normal A/P-Cardiology Assessment/Admission Diagnosis Unstable angina, Coronary artery disease/PCI, Hypertension, Previous history of smoking. Plan Patient has nonresolving chest pain 08/17. Despite fentanyl, Plavix bolus and a dose of Lovenox. Serial troponin are negative. EKG negative. But due to her significant history of 7 stents and more than 1 vessel I am very concerned that this may be obstructive coronary artery disease therefore I discussed at length with the patient and recommended coronary angiography with possible PCI. 1% risk of complication including a small risk of was discussed with the patient. She excepted all risk and would like to proceed. She shares with me that she has had stents in the upper extremities as well and that they had previously difficulty with radial access. Therefore we will proceed with right femoral access. Patient was given 300 mg of Plavix in the ER. Lovenox was also given. Echocardiogram done today shows normal LV function with no wall motion abnormalities. Brief episode of hypotension which responded to IV fluids. Sinai HUNTLEY MD Aug 24, 2022 13:23
--- NOTE | 2022-08-24 13:24 | Cardiac Procedure Note-CS/ASA ---
Pre-Procedure Note Pre-Op Procedure Note Date H&P Reviewed: Aug 24, 2022 Time H&P Reviewed: 13:23 History & Physical: H&P Reviewed, Patient Examed, No changes noted Pre-Operative Diagnosis: Unstable angina Moderate Sedation PreProcedure Time 13:23 ASA Score 3 Airway Lungs Heart ASA score ASA 1: a normal healthy patient ASA 2: a patient with a mild systemic disease (mid diabetes, controlled hypertension, obesity ASA 3: a patient with a severe systemic disease that limits activity (angina, COPD, prior Myocardial infarction) ASA 4: a patient with an incapacitating disease that is a constant threat to life (CHF, renal failure) ASA 5: a moribund patient not expected to survive 24 hrs. (ruptured aneurysm) ASA 6: a declared brain- patient whose organs are being harvested. For emergent operations, add the letter E after the classification Mallampati Classification Grade 1 Sedation Plan Analgesia, Amnesia, Plan communicated to team members, Discussed options with patient/fam, Discussed risks with patient/fam The patient is an appropriate candidate to undergo the planned procedure, sedation, and anesthesia. The patient immediately re-assessed prior to indication. Sinai HUNTLEY MD Aug 24, 2022 13:24
[2022-08-24] MEDS ORDERED: NS IV 1000 ML 1,000 ML IV SCH (14:00)
[2022-08-24] MEDS ORDERED: PATIENT MAY USE OWN MEDS, ALL PO SCH (14:00)
--- NOTE | 2022-08-24 14:04 | Coronary Angiography Report ---
Coronary Angiography Report DATE OF PROCEDURE: 08/24/22 INDICATION: Unstable angina PREOPERATIVE DIAGNOSIS: Unstable angina POSTOPERATIVE DIAGNOSIS: Patent stents, normal aortic arch. HISTORY: This is a 46-year-old lady who had previous stents in the brachiocephalic as well as left subclavian artery. She also has 7 stents in the LAD and RCA done 2 years ago. She presents with continuous chest pain which was not resolving with heparin, bolus Plavix and fentanyl. Episode of hypotension. Echocardiogram showed normal LV function with no wall motion abnormalities. EKG did not show any significant ST-T wave abnormalities. Troponins x2 were negative. Due to persistent chest pain with significant history of 7 stents we decided to proceed with coronary angiography. PROCEDURES PERFORMED: 1.Coronary angiography. 2.Left heart catheterization. 3. Aortic arch angiogram, medical necessity: Patient had severe chest pain with an episode of hypotension with previous stents in the brachiocephalic and left subclavian artery. Patent coronary stents therefore aortic arch angiogram Done to rule out aortic dissection. COMPLICATIONS: None. SPECIMENS: None. ESTIMATED BLOOD LOSS: 10 mL ANESTHESIA: Conscious sedation ANTICOAGULATION: IV heparin CONTRAST: 90 mL FLUOROSCOPY: 3.5 minutes. FLOUROSCOPY DOSE: 542 mgy. PROCEDURE DETAILS: The patient is a 46 female and was brought to the blood and plasma laboratory assistant after informed consent was taken. All the risks and complications were explained in detail; this included the risk of bleeding, vascular damage, stroke, VT and even . The patient was draped and prepped in the usual sterile fashion. Access was gained in the right Femoral artery with a 6 Yi sheath. Coronary angiography and left heart catheterization was performed with the JR 4 and JL4. Aortic arch angiogram was done with the pigtail catheter. FINDINGS: 1.Left main: Patent 2.LAD: Patent stents in the ostial and mid LAD. No significant disease noted. 3.Left circumflex artery: Small arteries with no obstructive coronary artery disease noted. 4.RCA: Patent stents in the proximal, mid, distal RCA. No significant in-stent restenosis noted. 5.Left heart catheterization: Aortic pressure 128/69 mmHg. LV pressure 129/4 mmHg. LVEDP 17 mmHg. Normal LV function with an EF of 60% with no wall motion abnormalities. 6. Aortic arch angiogram, medical necessity: Patient had severe chest pain with an episode of hypotension with previous stents in the brachiocephalic and left subclavian artery. Patent coronary stents therefore aortic arch angiogram Done to rule out aortic dissection. Aortic arch angiogram did not show any evidence o f aortic dissection or aortic aneurysm. Patent stent in the brachiocephalic artery as well as the left subclavian artery. CONCLUSIONS: Patent coronary stents. Patent stents in the brachiocephalic artery as well as the left subclavian artery. Normal LV function with no wall motion abnormality. No significant coronary artery disease. Continue aspirin, Plavix and secondary prevention measures. Follow-up with outpatient machine stone polisher in [place]. Raman King MD, FACP, FACC, [facility] Interventional Cardiology Sinai KING MD Aug 24, 2022 14:04
[2022-08-24] MEDS ORDERED: IBUP-1780 PO (15:35)
[2022-08-24] MEDS ORDERED: CYCL10TA25 PO (15:35)
[2022-08-24] MEDS ORDERED: LEVO75TA6 PO (15:35)
[2022-08-24] MEDS ORDERED: LEVO175T5 PO (15:37)
--- NOTE | 2022-08-24 15:42 | History & Physical ---
HPI History of Present Illness: 46 yo female presented to ER due to left chest pain and arm pain that started around 3 am. She also had nausea, dizziness and shortness of breath. Denies cough. Has had 7 stents per her report, plus stents in arms. Source: patient Date seen by provider: Aug 24, 2022 Time Seen by Provider: 15:40 Attending Physician Jimbo Gamez MD PCP Admitting Physician: Berenice Anand MD Attending Physician: Berenice Anand MD Consult Date of Admission Aug 24, 2022 at 09:55 Home Medications Home Medications Reviewed patient Home Medication Reconciliation performed by pharmacy medication reconciliations shale processing technician and/or nursing. Patients Allergies have been reviewed. Allergies Coded Allergies: hydrocodone (Verified Adverse Reaction, Unknown, 09/02/18) sertraline (Verified Adverse Reaction, Unknown, 09/02/18) HCM-Ouhsev-Gdckdl Hx Patient Social History Drug of Choice: distant hx meth Smoking Status: Former Smoker (PPD AGE 9 TO AGE 44) Former smoker/When Quit: Aug 08, 2020 2nd Hand Smoke Exposure: Yes Recent Hopitalizations: No Alcohol Use?: No Immunizations Up To Date Influenza Vaccine Up-to-Date: No; Not Current First/Initial COVID19 Vaccinat: NO Second COVID19 Vaccination [place]: NO Third COVID19 Vaccination Date: NON Past Medical History PMHx: CAD with stenting Anxiety Hypothyroidism SurgHx: BTL Coronary stenting Vascular stents in arm Family Medical History Significant Family History: Heart Disease, Diabetes, Hypertension Review of Systems ([facility]) Constitutional: No fever EENTM: No nose congestion Respiratory: No cough Cardiovascular: see HPI Gastrointestinal: constipation; No diarrhea, No vomiting Genitourinary: No dysuria Musculoskeletal: No joint pain Reviewed Test Results Reviewed Test Results Lab Laboratory Tests Test 08/24/22 06:53 08/24/22 10:25 Range/Units White Blood Count 10.0 4.3-11.0 10^3/uL Red Blood Count 4.18 3.80-5.11 10^6/uL Hemoglobin 13.5 11.5-16.0 g/dL Hematocrit 40 35-52 % Mean Corpuscular Volume 96 80-99 fL Mean Corpuscular Hemoglobin 32 25-34 pg Mean Corpuscular Hemoglobin Concent 34 32-36 g/dL Red Cell Distribution Width 12.5 10.0-14.5 % Platelet Count 251 130-400 10^3/uL Mean Platelet Volume 9.5 9.0-12.2 fL Immature Granulocyte % (Auto) 0 % Neutrophils (%) (Auto) 60 42-75 % Lymphocytes (%) (Auto) 33 12-44 % Monocytes (%) (Auto) 5 0-12 % Eosinophils (%) (Auto) 1 0-10 % Basophils (%) (Auto) 1 0-10 % Neutrophils # (Auto) 6.0 1.8-7.8 10^3/uL Lymphocytes # (Auto) 3.3 1.0-4.0 10^3/uL Monocytes # (Auto) 0.5 0.0-1.0 10^3/uL Eosinophils # (Auto) 0.1 0.0-0.3 10^3/uL Basophils # (Auto) 0.1 0.0-0.1 10^3/uL Immature Granulocyte # (Auto) 0.0 0.0-0.1 10^3/uL Prothrombin Time 12.4 12.2-14.7 SEC INR Comment 0.9 0.8-1.4 Activated Partial Thromboplast Time 28 24-35 SEC D-Dimer 0.40 0.00-0.49 UG/ML Sodium Level 135 135-145 MMOL/L Potassium Level 4.0 3.6-5.0 MMOL/L Chloride Level 104 98-107 MMOL/L Carbon Dioxide Level 20 L 21-32 MMOL/L Anion Gap 11 5-14 MMOL/L Blood Urea Nitrogen 15 7-18 MG/DL Creatinine 0.98 0.60-1.30 MG/DL Estimat Glomerular Filtration Rate 71 BUN/Creatinine Ratio 15 Glucose Level 121 H 70-105 MG/DL Calcium Level 9.5 8.5-10.1 MG/DL Corrected Calcium 9.5 8.5-10.1 MG/DL Magnesium Level 2.1 1.6-2.4 MG/DL Total Bilirubin 0.3 0.1-1.0 MG/DL Aspartate Amino Transf (AST/SGOT) 20 5-34 U/L Alanine Aminotransferase (ALT/SGPT) 9 0-55 U/L Alkaline Phosphatase 93 40-136 U/L Troponin I < 0.30 < 0.028 <0.028 NG/ML Pro-B-Type Natriuretic Peptide 106.9 <125.0 PG/ML Total Protein 7.1 6.4-8.2 GM/DL Albumin 4.0 3.2-4.5 GM/DL Lipase 51 8-78 U/L Radiology CXR: IMPRESSION: Minimal left basilar atelectasis and/or pneumonitis. Physical Exam-([facility]) Physical Exam Vital Signs VS - Last 72 Hours, by Label 08/24/22 08/24/22 08/24/22 08/24/22 06:47 07:05 09:10 09:55 Temp 36.8 Pulse 76 Resp 20 B/P (MAP) 117/81 (93) 131/65 Pulse Ox 97 96 95 96 O2 Delivery Room Air Room Air Room Air Room Air 08/24/22 08/24/22 08/24/22 08/24/22 10:00 10:15 10:15 10:30 Pulse 46 45 45 44 Resp 15 12 30 B/P (MAP) 112/90 (97) 89/65 (73) 88/72 (77) Pulse Ox 95 95 97 O2 Delivery Room Air Room Air Room Air 08/24/22 08/24/22 08/24/22 08/24/22 10:45 11:00 11:23 12:00 Temp 36.2 Pulse 41 45 45 43 Resp 8 15 16 23 B/P (MAP) 84/42 (56) 101/70 (80) 101/70 (80) 87/67 (74) Pulse Ox 96 95 98 96 O2 Delivery Room Air Room Air Room Air Room Air 08/24/22 08/24/22 08/24/22 08/24/22 13:00 13:00 14:15 14:30 Pulse 48 45 55 65 Resp 19 19 25 B/P (MAP) 104/80 (88) 115/93 (100) 121/85 (97) Pulse Ox 99 93 93 O2 Delivery Room Air Room Air Room Air 08/24/22 08/24/22 08/24/22 08/24/22 14:45 15:00 15:15 15:45 Pulse 75 64 67 53 Resp 26 12 B/P (MAP) 107/83 (91) 110/80 (90) 92/64 (73) 111/82 (92) Pulse Ox 96 98 94 93 O2 Delivery Room Air Room Air Room Air Room Air 08/24/22 08/24/22 08/24/2217/23 16:15 16:45 17:45 18:00 Pulse 73 75 48 60 Resp 36 19 16 10 B/P (MAP) 123/94 (104) 141/100 (114) 106/85 (92) 100/79 (86) Pulse Ox 96 94 97 97 O2 Delivery Room Air Room Air Room Air Room Air Capillary Refill : Less Than 3 Seconds General Appearance: WD/WN Respiratory: lungs clear, normal breath sounds Cardiovascular: regular rate, rhythm, no murmur Gastrointestinal: normal bowel sounds, non tender, soft Extremities: No pedal edema Neurologic/Psychiatric: alert, other Skin: warm/dry Assessment/Plan Assessment/Plan Admission Status: Observation (1) Coronary artery disease with unstable angina pectoris Status: Acute Assessment & Plan: Troponins negative, but marked risk, Appreciate Cardiology recommendations, cath done with no new occlusion noted. Qualifiers: Qualified Codes: I25.110 - Atherosclerotic heart disease of [place] coronary artery with unstable angina pectoris (2) Mixed hyperlipidemia Assessment & Plan: Resume statin (3) Vascular disease Status: Acute Clinical Quality Measures AMI/AHF: ASA po Prior to arrival: BERENICE Erickson MD Aug 24, 2022 15:41
[2022-08-24] MEDS ORDERED: ALPRAZolam 0.5 MG (XANAX) TAB PO PRN (15:45)
[2022-08-24] MEDS ORDERED: CYCLOBENZAPRINE 10 MG (FLEXERIL) TAB PO PRN (16:15)
[2022-08-25] MEDS ORDERED: LEVOTHYROXINE 75 MCG (LEVOTHROID) TABLET PO SCH (06:30)
[2022-08-25] MEDS ORDERED: LEVOTHYROXINE 100 MCG (LEVOTHROID) TAB PO SCH (06:30)
[2022-08-25] MEDS ORDERED: CLOPIDOGREL 75 MG (PLAVIX) TABLET PO SCH (09:00)
[2022-08-25] MEDS ORDERED: ASPIRIN E.C. 81 MG (ECOTRIN) TAB PO SCH (09:00)
[2022-08-25] MEDS ORDERED: PANTOPRAZOLE 40 MG (PROTONIX) TAB PO SCH (09:00)
[2022-08-25] MEDS ORDERED: NON-FORMULARY MEDICATION 1 EA EA (Levothyroxine Sodium 175 MCG) PO SCH (09:00)
== END 2022-08-24 18:42 | disposition left against medical advice (07) ==
LOC: EDUNIT# 06:46 → ER FS 06:48 → CSD 09:55
PROVIDERS: ADMIT Family Medicine; ATTEND Family Medicine
DX: I25.110 Atherosclerotic heart disease of native coronary artery with unstable angina pectoris (principal); E78.2 Mixed hyperlipidemia; I73.9 Peripheral vascular disease, unspecified; I10 Essential (primary) hypertension; Z79.899 Other long term (current) drug therapy; Z87.891 Personal history of nicotine dependence; Z28.310 Unvaccinated for COVID-19
CPT/HCPCS: 36221; 36415; 71045; 80053; 83690; 83735; 83880; 84484 ×2; 85025; 85379; 85610; 85730; 93005; 93041; 93458; 96361; 99284; C1894; C8929; 93306